=== PATIENT | female | born 1985 | race Caucasian/White ===

== ENCOUNTER 2019-03-09 18:27 | Inpatient (IN) ==
[2019-03-09] MEDS ORDERED: Naloxone 0.4 MG/ML INJ IVP PRN (21:04)
[2019-03-09] MEDS ORDERED: Artificial Tears SOLN 15 ML BOTTLE BOTH EYES PRN (21:07)
[2019-03-09] MEDS ORDERED: FentaNYL (PF) 1,000 MCG in 0.9 % Sodium Chloride 80 ML IVC SCH (21:15)
--- NOTE | 2019-03-09 21:23 | Internal Med History&Physical ---
<Genna Rubio - Last Filed: 03/09/19 22:06> Date of Encounter: 03/09/19 Time of Encounter: 21:00 Internal Medicine - H&P: HPI Chief complaint: shortness of breath History of present illness: Ms. Olmedo is a 33 year old female with no known past medical history who was transferred from [facility]. She was presented via EMS to outside facility as she was breathing 3 times per minute. At presentation she was awake but agitated and complaining of severe shortness of breath. She received 2 mg of nasal Narcan at [place] [facility]. Her respiratory status became labored and had severe dyspnea subsequently requiring intubation. Her urine drug screen was pos itive for amphetamine and opioids. Her initial ABG showed respiratory acidosis with PCO2 of 108 and pH of 6.97. She was also noted to have WBC of 17.6 with elevated platelets of 572. At outside ED she had bilateral external jugular lines placed. No further history as she is currently intubated. Past Med Surg Social Fam HX - Past Medical History Medical history: COPD Additional medical history: PNEUMONIA, IV DRUG USE , WEARS HOME O2 AT 2LPM VIA NC PRN Psychiatric history: anxiety, depression - Past Surgical History Surgical History: no surgical history - Social History Smoking Status: Current every day smoker Smokeless Tobacco Status: No Alcohol use: none Drug use: cocaine, opiates, IV Drug Use, prescription drug abuse Internal Medicine - H&P: Meds Albuterol Neb [Proventil Neb] 2.5 mg IH Q4HR PRN #30 vial.neb 02/14/19 [Rx] Albuterol Sulfate [Albuterol Inhaler] 2 puff IH Q4H PRN #1 inhaler 02/14/19 [Rx] PredniSONE [Deltasone] 60 mg PO DAILY #15 tablet 02/14/19 [Rx] Allergy/AdvReac Type Severity Reaction Status Date / Time No Known Allergies Allergy Verified 02/14/19 23:16 ROS unobtainable: due to endotracheal tube All Systems PM: A 10-system review of systems was performed and is negative for pertinent findings except as documented above in the HPI. - Constitutional Exam: Gen: Vitals noted. Intubated. In no acute distress Eyes: anicteric sclerae, moist conjunctivae; no lid-lag HENT: Atraumatic; oropharynx clear with moist mucous membranes and no mucosal ulcerations; normal hard and soft palate Neck: Trachea midline; supple, no thyromegaly or lymphadenopathy, bilateral external jugular lines on bilateral neck Cardiac: RRR, no murmur, +S1/S2. No JVD noted. Pulmonary: Diffuse wheezing all lung lobes, no rales or rhonchi, equal chest expansion Abdomen: soft, nontender, no guarding. No masses or hepatosplenomegaly Extremities: Left leg appears edematous, nontender calf Skin: Normal temperature, turgor; no rash, ulcers or subcutaneous nodules Neuro: Intubated and not moving any extremities, no focal deficits. Psych: Intubated, does not respond to command. - Assessment and Plan (1) Acute respiratory failure with hypoxia and hypercapnia Current Visit: Yes Status: Acute Assessment and plan: Was presented to outside ED to have decreased respiratory rate secondary to drug overdose. At presentation to outside ED pH was 6.96 with PCO2 of 108. He was subsequently intubated her repeat ABG shows pH of 7.25 with PCO2 71 Has diffuse wheezing in all lung lobes -Continue scheduled DuoNeb -Continue scheduled IV Solu-Medrol -Continue antibiotic treatment for aspiration pneumonia -Continue to titrate supplemental oxygen with ventilation setting -Repeat chest x-ray pending -Repeat ABG in two hours and in the morning (2) Drug overdose, multiple drugs Current Visit: No Status: Acute Assessment and plan: Presented to the ED at [facility] pain or shortness of breath which was likely secondary to acute blood overdose. Urine toxicology was positive for amphetamines and opioids. Does have history of IV heroin use. Received 2 mg of Narcan outside facility Due to her worsening respiratory status currently is intubated Limit use of opioids Continue sedation with propofol Qualifiers: Encounter type: initial encounter Injury intent: accidental or unintentional Qualified Code(s): T50.901A - Poisoning by unspecified drugs, medicaments and biological substances, accidental (unintentional), initial en counter (3) Aspiration pneumonia Current Visit: Yes Status: Suspected Assessment and plan: Concern for aspiration pneumonia. Was presented to outside ED with respiratory rate of 3 unknown if she had vomited at home. Has diffuse wheezing in all lung lobes with mucus secretions. -We will start Zosyn for aspiration pneumonia if respiratory status improves consider stopping Zosyn -Continue breathing treatments -Appears dehydrated, will start normal saline at rate of 125ml per hour Qualifiers: Aspiration pneumonia type: unspecified Laterality: unspecified laterality Lung location: unspecified part of lung Qualified Code(s): J69.0 - Pneumonitis due to inhalation of food and vomit (4) Leg edema, left Current Visit: Yes Status: Acute Assessment and plan: History of IV drug use left leg appears edematous concern for superficial versus deep venous thrombosis Bilateral lower extremity Dopplers pending (5) DVT prophylaxis Current Visit: Yes Status: Acute Assessment and plan: Subcutaneous heparin - Time Spent With Patient Total time spent is greater than 50% in coordination of care (as documented) at patient's floor/unit and/or counseling patient: <Lopez Guadarrama - Last Filed: 03/10/19 03:04> Date of Encounter: 03/09/19 Time of Encounter: 21:45 Past Med Surg Social Fam HX - Past Medical History Source: old records reviewed, other ([facility] records) - Family History Mother History Unknown: Yes Father History Unknown: Yes ROS unobtainable: due to endotracheal tube - Constitutional Vitals: Temp Pulse Resp BP Pulse Ox 98.5 F 95 26 104/71 100 03/09/19 23:51 03/10/19 02:00 03/10/19 02:00 03/10/19 02:00 03/10/19 02:00 General appearance: Present: cachectic, disheveled, underweight Exam: sedated, intubated - Head Head exam: Present: atraumatic, normal inspection - Eye Eye exam: Present: PERRL. Absent: scleral icterus - ENT ENT exam: Present: mucous membranes dry, normal exam Additional comments: ETT/OG tube in place - Neck Neck exam general surgery: Present: full ROM, supple, trachea midline. Absent: tenderness, nuchal rigidity, thyromegaly - Respiratory Respiratory exam: Present: prolonged expiratory phase, rhonchi, wheezes. Absent: chest wall tenderness, rales - Cardiovascular Cardiovascular exam: Present: RRR, +S1, +S2, tachycardia. Absent: diastolic murmur, systolic murmur - GI/Abdominal GI/Abdominal exam: Present: normal bowel sounds, soft. Absent: hepatomegaly, mass, splenomegaly, tenderness - Extremities Exam Extremities exam: Present: normal capillary refill, warm, radial pulses palpable and symmetrical. Absent: calf tenderness, joint swelling Additional comments: cellulitis changes and slight swelling in left leg - Neurological Exam Additional comments: responds to suctioning, painful stimulation - Skin Skin exam: Present: dry, erythema (left pretibial area), intact, warm Additional comments: scabs and injection sites throughout extremities Internal Med - H&P Results - Labs Labs: I reviewed her labs from [place] and include the following: WBC 17.6 Hemoglobin 11.2 Hematocrit 36.8 Platelets 572 Sodium 139 Potassium 5.3 Chloride 103 Carbon dioxide 27 BUN 10 Creatinine 1.14 Glucose 166 Urine drug screen positive for opiates and amphetamines - ABG Interpretation Interpretation: ABG interpreted by me ABG results: 03/09/19 03/10/19 21:31 00:54 ABG pH 7.25 L D 7.32 ABG pCO2 71 H* 55 H ABG pO2 131 H D 156 H ABG HCO3 31 H 28 H ABG Total CO2 33 H 30 H ABG O2 Saturation 98 99 H ABG Base Excess 2 2 Interpretation: respiratory acidosis - Impressions ITS Impressions Chest X-Ray 03/09/19 21:39 IMPRESSION: Interval placement of enteric tube with tip in the proximal stomach, side hole above the gastroesophageal junction. Ideally, the tube could be advanced by several cm. D/ / Summer Govea Cha, MD / Summer Govea Cha, MD Interpreting Provider: Summer Govea Cha, MD - Diagnostic Studies Chest x-ray Status: image reviewed by me (ETT in place; hyperinflaiton) - Time Spent With Patient Total time spent is greater than 50% in coordination of care (as documented) at patient's floor/unit and/or counseling patient: - Attending Attestation I discussed the patient NATIVE, past medical history, exam findings, lab findings, and imaging findings with Dr. Rubio. I then saw and examined patient independently in ICU. Patient is sedated and mechanically ventilated. She does respond appropriately to painful and loud verbal stimuli. She is wheezing audibly on exam. She has a prolonged expiratory phase. She has multiple scabs throughout her body likely from picking and injection sites. We will keep her sedated and mechanically ventilated tonight. We will treat her with steroids, aerosols, and antibiotics for possible pneumonia and asthma exacerbation. She also has cellulitis of her left lower extremity, and this will need to be followed. I made some ventilator adjustments with respiratory therapy to improve her acid base status. I reviewed her x-rays and discussed with Dr. Rubio and her nurse as well. My hope and expectation is that she will improve, and hopefully we can extubate in the morning with pulmonology services available. Other than my comments above and documented exam findings, I agree with Dr. Rubio's assessment and plan. Please note that a total of 45 minutes critical care time were spent assessing, coordinating care of patient, reviewing labs, and x-rays, and making ventilatory changes with respiratory therapy.
[2019-03-09 21:40] LABS: ABG Base Excess 2 mEq/L (-2 to 3); ABG HCO3 31 mEq/L (21-27); ABG Oxygen Saturation 98 % (95-98); ABG PCO2 71 mmHg (35-45); ABG PH 7.25 pH Units (7.32-7.45); ABG PO2 131 mmHg (85-104); ABG TCO2 33 mEq/L (20-26); Blood Gas Modality VC; Blood Gas PEEP 5 cm H2O; Blood Gas Respiration Rate 12; Blood Gas VT 400 cc
[2019-03-09] MEDS ORDERED: 0.9 % Sodium Chloride 1,000 ML ONE (21:51)
[2019-03-09] MEDS: 0.9 % Sodium Chloride 1,000 ML IVC SCH (22:00)
[2019-03-09] MEDS: Ipratropium/Albuterol Neb 3 ML IH SCH (22:23)
[2019-03-09] MEDS ORDERED: Dexmedetomidine HCl 400 MCG/100 ML MLS IVC ONE (23:08)
[2019-03-09] MEDS: Piperacillin/Tazobactam 3.375 GM in 0.9 % Sodium Chloride Mini Bag 100 ML IVPB SCH (23:16)
[2019-03-09] MEDS: MethylPREDNISolone 40 MG/ML VIAL IVP SCH (23:17)
[2019-03-09] MEDS: Dexmedetomidine HCl 400 MCG/100 ML MLS IVC SCH (23:18)
[2019-03-10 00:57] LABS: ABG Base Excess 2 mEq/L (-2 to 3); ABG HCO3 28 mEq/L (21-27); ABG Oxygen Saturation 99 % (95-98); ABG PCO2 55 mmHg (35-45); ABG PH 7.32 pH Units (7.32-7.45); ABG PO2 156 mmHg (85-104); ABG TCO2 30 mEq/L (20-26); Blood Gas Modality VC; Blood Gas PEEP 5 cm H2O; Blood Gas Respiration Rate 16; Blood Gas VT 400 cc
[2019-03-10] MEDS: Artificial Tears SOLN 15 ML BOTTLE BOTH EYES SCH ×3 (02:10→10:46)
[2019-03-10] MEDS: Ipratropium/Albuterol Neb 3 ML IH SCH ×4 (03:35→21:44)
[2019-03-10 04:27] LABS: Basophils % 0.3 %; Eosinophils % 0.2 %; Hemoglobin 9.1 g/dL (11.5-15.4); Immature Granulocytes % 0.4 % (0-4); Lymphocytes % 7.6 %; Mean Corpuscular HGB Conc 30.3 g/dL (31.6-35.5); Mean Corpuscular Hemoglobin 26.2 pg (28.0-33.3); Mean Corpuscular Volume 86.5 fL (83.0-100.0); Mean Platelet Volume 9.4 fL (9.4-12.4); Monocytes # 0.2 K/mcL (0.0-1.3); Monocytes % 1.4 %; Neutrophils # 11.3 K/mcL (1.6-8.9); Platelet Count 294 K/mcL (140-400); Red Blood Count 3.47 M/mcL (3.82-4.97); Red Cell Distribution Width 13.7 % (11.5-14.5); Segmented Neutrophils % 90.1 %
[2019-03-10 04:38] LABS: ABG Base Excess 2 mEq/L (-2 to 3); ABG HCO3 28 mEq/L (21-27); ABG Oxygen Saturation 97 % (95-98); ABG PCO2 50 mmHg (35-45); ABG PH 7.35 pH Units (7.32-7.45); ABG PO2 98 mmHg (85-104); ABG TCO2 29 mEq/L (20-26); Blood Gas Modality ASSIST CONTROL; Blood Gas PEEP 5 cm H2O; Blood Gas Respiration Rate 16; Blood Gas VT 350 cc
[2019-03-10 04:47] LABS: BUN/Creatinine Ratio 13 (6-26); Blood Urea Nitrogen 10 mg/dL (6-20); Calcium 7.8 mg/dL (8.6-10.3); Carbon Dioxide 27 mEq/L (23-29); Chloride 104 mEq/L (98-107); Glucose 133 mg/dL (70-105); Osmolality,Calculated 291 (280-300); Potassium 4.1 mEq/L (3.5-5.1); Sodium 140 mEq/L (136-145); eGFR For Non-African Americans > 60 (> 60)
[2019-03-10] MEDS ORDERED: *HR* FentaNYL (PF) 100 MCG/2 ML VIAL IVP ONE (05:38)
[2019-03-10] MEDS ORDERED: *HR* FentaNYL (PF) 100 MCG/2 ML VIAL ONE (05:39)
[2019-03-10] MEDS: *HR* Heparin 5,000 UNIT/ML VIAL SQ SCH ×2 (05:45→18:37)
[2019-03-10] MEDS: 0.9 % Sodium Chloride 1,000 ML IVC SCH (05:46)
[2019-03-10] MEDS: Dexmedetomidine HCl 400 MCG/100 ML MLS IVC SCH ×2 (05:48→15:28)
[2019-03-10 07:42] LABS: Creatine Kinase 1529 Units/L (30-223)
--- NOTE | 2019-03-10 08:57 | Pulmonology Consult Note ---
<Kirill Jacinto - Last Filed: 03/10/19 13:25> Date of Encounter: 03/10/19 Time of Encounter: 08:00 Assessment and Plan (1) Acute respiratory failure with hypoxia and hypercapnia Current Visit: Yes Status: Acute -Likely 2/2 drug overdose -Tox pos for opiates and amphetamines -ABG at [place] with pH 6.96, paCO2 108, paO2 78 -WBC 17.6 at [place] -WBC 12.6 today -BC x2 pending -ABG 03/10/19: pH 7.35, paCO2 50, paO2 98, HCO3 28, 97% on 40% FiO2 -Started on zosyn on arrival for concern of aspiration 2/2 report of vomiting by EMS -Will add additional vancomycin today for MRSA coverage as IVDU -Continue scheduled bronchodilators, nebs, and steroids -Will wean sedation and mechanical ventilation as tolerated (2) Rhabdomyolysis Current Visit: Yes Status: Acute -CK 1529 -Uop 1900ml so far today -Cr 0.78, BUN 10 -Will continue IVF with LR and monitor CK for trend down Qualifiers: Rhabdomyolysis type: non-traumatic Qualified Code(s): M62.82 - Rhabdomyolysis (3) Drug overdose, multiple drugs Current Visit: No Status: Acute -Tox pos opiates and amphetamines Qualifiers: Encounter type: initial encounter Injury intent: accidental or unintentional Qualified Code(s): T50.901A - Poisoning by unspecified drugs, medicaments and biological substances, accidental (unintentional), initial encounter (4) DVT prophylaxis Current Visit: Yes Status: Acute -Sq heparin History of Present Illness Consult date: 03/10/19 Requesting physician: Genna Rubio Reason for consult: other (Acute resp failure ) Chief complaint: Acute resp failure History of present illness: 33 year old female with pmh significant for IVDU. Hx comes from medical record as she is intubated and sedated. She was brought to [place] ED via EMS after being found to have RR 3. She was awake, agitated and dyspneic. Received narcan which had no improvement in resp status and was subsequently intubated. She was transferred to [facility] and brought to the ICU for continued vent management. Past Med Surg Social Fam HX - Past Medical History Medical history: COPD Additional medical history: PNEUMONIA, IV DRUG USE , WEARS HOME O2 AT 2LPM VIA NC PRN Psychiatric history: anxiety, depression - Past Surgical History Surgical History: no surgical history - Social History Smoking Status: Current every day smoker Smokeless Tobacco Status: No Alcohol use: none Drug use: cocaine, opiates, IV Drug Use, prescription drug abuse - Family History Mother History Unknown: Yes Father History Unknown: Yes Medications and Allergies Albuterol Neb [Proventil Neb] 2.5 mg IH Q4HR PRN #30 vial.neb 02/14/19 [Rx] Albuterol Sulfate [Albuterol Inhaler] 2 puff IH Q4H PRN #1 inhaler 02/14/19 [Rx] PredniSONE [Deltasone] 60 mg PO DAILY #15 tablet 02/14/19 [Rx] Allergy/AdvReac Type Severity Reaction Status Date / Time No Known Allergies Allergy Verified 02/14/19 23:16 ROS unobtainable: due to endotracheal tube, due to mental status All Systems: The remainder of the systems were reviewed and are negative Physical Examination Vital Signs: Vital Signs, Last 4 Hours Pulse Resp BP Pulse Ox 03/10/19 07:32 32 100 03/10/19 07:00 98 28 86/57 100 03/10/19 06:38 28 86/57 100 03/10/19 06:00 100 30 93/60 100 03/10/19 05:00 98 30 96/66 100 General appearance: no acute distress, other (intubated and sedated ) Eyes: nonicteric ENT: oropharynx dry Inspection: other (on vent ) Auscultation: bilateral: diminished breath sounds, wheezes (scattered) Cardiovascular: regular rate and rhythm Gastrointestinal: normoactive bowel sounds, soft, non-tender Integumentary: other (various injection sites in various stages of healing. L lower leg lesion with erythema and central scab ) Extremities: no edema, no clubbing, pink and warm, pulses normal, no ischemia or petechiae other (sedated) other (sedated) Ventilator Settings Ventilator Settings: Ventilator Settings, Last 8 Hours Ventilator Tidal Volume 350 Setting Ventilator Tidal Volume 350 Setting Ventilator Tidal Volume 350 Setting Ventilator Tidal Volume 350 Setting Ventilator Tidal Volume 350 Setting Ventilator Tidal Volume 350 Setting Ventilator Tidal Volume 350 Setting Ventilator Tidal Volume 350 Setting Ventilator Respiratory Rate 16 Setting Ventilator Respiratory Rate 16 Setting Ventilator Respiratory Rate 16 Setting Ventilator Respiratory Rate 16 Setting Ventilator Respiratory Rate 16 Setting Ventilator Respiratory Rate 16 Setting Ventilator Respiratory Rate 16 Setting Actual Respiratory Rate 32 Actual Respiratory Rate 29 Actual Respiratory Rate 26 Actual Respiratory Rate 22 Positive End Expiratory 5 Pressure Positive End Expiratory 5 Pressure Positive End Expiratory 5 Pressure Positive End Expiratory 5 Pressure Positive End Expiratory 5 Pressure Positive End Expiratory 5 Pressure Positive End Expiratory 5 Pressure Peak Inspiratory Airway 19 Pressure Peak Inspiratory Airway 18 Pressure Peak Inspiratory Airway 16 Pressure Peak Inspiratory Airway 23 Pressure Peak Inspiratory Airway 17 Pressure Peak Inspiratory Airway 19 Pressure Peak Inspiratory Airway 11 Pressure Results - Laboratory Findings CBC and BMP: 03/10/19 10:15 03/10/19 04:00 ABG ABG pH 7.35 pH Units (7.32-7.45) 03/10/19 04:35 ABG pCO2 50 mmHg (35-45) H 03/10/19 04:35 ABG pO2 98 mmHg (85-104) D 03/10/19 04:35 ABG O2 Saturation 97 % (95-98) 03/10/19 04:35 Abnormal lab findings: Abnormal lab results WBC 12.6 K/mcL (4.3-11.1) H 03/10/19 04:00 RBC 3.47 M/mcL (3.82-4.97) L 03/10/19 04:00 Hgb 9.1 g/dL (11.5-15.4) L D 03/10/19 04:00 Hct 30.0 % (35.3-44.9) L 03/10/19 04:00 MCH 26.2 pg (28.0-33.3) L 03/10/19 04:00 MCHC 30.3 g/dL (31.6-35.5) L 03/10/19 04:00 11.3 K/mcL (1.6-8.9) H 03/10/19 04:00 ABG pH 7.25 pH Units (7.32-7.45) L D 03/09/19 21:31 ABG pCO2 50 mmHg (35-45) H 03/10/19 04:35 ABG pO2 156 mmHg (85-104) H 03/10/19 00:54 ABG HCO3 28 mEq/L (21-27) H 03/10/19 04:35 ABG Total CO2 29 mEq/L (20-26) H 03/10/19 04:35 ABG O2 Saturation 99 % (95-98) H 03/10/19 00:54 Glucose 133 mg/dL (70-105) H 03/10/19 04:00 POC Glucose 136 mg/dL (70-99) H 03/09/19 21:05 Calcium 7.8 mg/dL (8.6-10.3) L 03/10/19 04:00 1529 Units/L (30-223) H 03/10/19 04:00 - Microbiology Findings Microbiology Findings: Microbiology, Last 48 Hours 03/10/19 07:03 Blood Culture - Preliminary Peripheral Venipuncture Culture is incubating and being continuously monitored for growth. Final report to follow. 03/09/19 21:37 Blood Culture - Preliminary Peripheral Venipuncture Culture is incubating and being continuously monitored for growth. Final report to follow. - Clinical Findings Intake & Output: Intake & Output 03/09/19 03/10/19 03/10/19 23:59 07:59 15:59 Intake Total 1300 / 1300 Output Total 700 / 700 750 / 750 Balance -700 / -700 550 / 550 Weight 51.8 kg Consult Discharge Plan - Plan Referrals: NONE,PCP [Primary Care Provider] - <Sandip Zamorano W - Last Filed: 03/10/19 13:46> Date of Encounter: 03/10/19 All Systems: The remainder of the systems were reviewed and are negative Physical Examination Vital Signs: Vital Signs, Last 4 Hours Temp Pulse Resp BP Pulse Ox 03/10/19 13:07 16 107/67 98 03/10/19 13:00 110 21 107/67 98 03/10/19 12:00 97.9 F 78 23 107/67 100 03/10/19 11:41 97.2 F L 21 100 03/10/19 11:00 84 21 105/66 100 03/10/19 10:00 88 24 98/60 100 03/10/19 09:58 20 100 Ventilator Settings Ventilator Settings: Ventilator Settings, Last 8 Hours Ventilator Tidal Volume 400 Setting Ventilator Tidal Volume 400 Setting Ventilator Tidal Volume 400 Setting Ventilator Tidal Volume 400 Setting Ventilator Tidal Volume 400 Setting Ventilator Tidal Volume 400 Setting Ventilator Tidal Volume 400 Setting Ventilator Tidal Volume 350 Setting Ventilator Tidal Volume 350 Setting Ventilator Tidal Volume 350 Setting Ventilator Respiratory Rate 16 Setting Ventilator Respiratory Rate 16 Setting Ventilator Respiratory Rate 16 Setting Ventilator Respiratory Rate 16 Setting Ventilator Respiratory Rate 16 Setting Ventilator Respiratory Rate 16 Setting Ventilator Respiratory Rate 16 Setting Ventilator Respiratory Rate 16 Setting Ventilator Respiratory Rate 16 Setting Ventilator Respiratory Rate 16 Setting Actual Respiratory Rate 22 Actual Respiratory Rate 21 Actual Respiratory Rate 21 Actual Respiratory Rate 21 Actual Respiratory Rate 20 Actual Respiratory Rate 23 Actual Respiratory Rate 27 Actual Respiratory Rate 32 Actual Respiratory Rate 29 Positive End Expiratory 5 Pressure Positive End Expiratory 5 Pressure Positive End Expiratory 5 Pressure Positive End Expiratory 5 Pressure Positive End Expiratory 5 Pressure Positive End Expiratory 5 Pressure Positive End Expiratory 5 Pressure Positive End Expiratory 5 Pressure Positive End Expiratory 5 Pressure Positive End Expiratory 5 Pressure Peak Inspiratory Airway 27 Pressure Peak Inspiratory Airway 30 Pressure Peak Inspiratory Airway 26 Pressure Peak Inspiratory Airway 29 Pressure Peak Inspiratory Airway 28 Pressure Peak Inspiratory Airway 31 Pressure Peak Inspiratory Airway 27 Pressure Peak Inspiratory Airway 19 Pressure Peak Inspiratory Airway 18 Pressure Peak Inspiratory Airway 16 Pressure Results - Laboratory Findings CBC and BMP: 03/10/19 10:15 03/10/19 04:00 ABG ABG pH 7.35 pH Units (7.32-7.45) 03/10/19 04:35 ABG pCO2 50 mmHg (35-45) H 03/10/19 04:35 ABG pO2 98 mmHg (85-104) D 03/10/19 04:35 ABG O2 Saturation 97 % (95-98) 03/10/19 04:35 Abnormal lab findings: Abnormal lab results WBC 12.6 K/mcL (4.3-11.1) H 03/10/19 04:00 RBC 3.25 M/mcL (3.82-4.97) L 03/10/19 10:15 Hgb 8.7 g/dL (11.5-15.4) L 03/10/19 10:15 Hct 27.9 % (35.3-44.9) L 03/10/19 10:15 MCH 26.8 pg (28.0-33.3) L 03/10/19 10:15 MCHC 31.2 g/dL (31.6-35.5) L 03/10/19 10:15 11.3 K/mcL (1.6-8.9) H 03/10/19 04:00 ABG pH 7.25 pH Units (7.32-7.45) L D 03/09/19 21:31 ABG pCO2 50 mmHg (35-45) H 03/10/19 04:35 ABG pO2 156 mmHg (85-104) H 03/10/19 00:54 ABG HCO3 28 mEq/L (21-27) H 03/10/19 04:35 ABG Total CO2 29 mEq/L (20-26) H 03/10/19 04:35 ABG O2 Saturation 99 % (95-98) H 03/10/19 00:54 Glucose 133 mg/dL (70-105) H 03/10/19 04:00 POC Glucose 136 mg/dL (70-99) H 03/09/19 21:05 Calcium 7.8 mg/dL (8.6-10.3) L 03/10/19 04:00 1529 Units/L (30-223) H 03/10/19 04:00 - Microbiology Findings Microbiology Findings: Microbiology, Last 48 Hours 03/10/19 07:03 Blood Culture - Preliminary Peripheral Venipuncture Culture is incubating and being continuously monitored for growth. Final report to follow. 03/09/19 21:37 Blood Culture - Preliminary Peripheral Venipuncture Culture is incubating and being continuously monitored for growth. Final report to follow. - Clinical Findings Intake & Output: Intake & Output 03/09/19 03/10/19 03/10/19 23:59 07:59 15:59 Intake Total 1300 / 2550 1250 / 2550 Output Total 700 / 700 750 / 2350 1600 / 2350 Balance -700 / -700 550 / 200 -350 / 200 Weight 51.8 kg - Attending Attestation I examined this patient and my medical decision-making was reviewed with the Resident Physician. I agree with the documented findings, disposition and treatment plan as described except to the extent set forth below. We independently had [id number] contact with the patient I spent 32min of Critical Care time with this patient. It involved decision making of high complexity to assess, manipulate, and support vital organ system failure and/or to prevent further life threatening deterioration of the patient's condition. The time involved in the performance of separately reportable procedures was not counted toward critical care time. Patient seen and examined at bedside Labs, radiology, chart personally reviewed. Management was reviewed during multidisciplinary critical care rounds. 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: Acute encephalopathy likely secondary to drug intoxication head CT within normal limits Pulm: Acute hypoxic hypercapnic respiratory failure secondary to aspiration and overdose she is on the vent plan to decrease sedation as tolerated and to hopefully do spontaneous breathing trial Cards: Blood pressure monitored and stable borderline hypotension which is likely related to sedation she has received volume resuscitation for sepsis and overdose GI: GI prophylaxis while on vent Nutrition: Nothing by mouth for now Renal: No evidence of AK I but she does have evidence of mild rhabdomyolysis which we will continue to monitor and continue IV fluids UOP Monitored, Cont to Trend sCr and monitor Electrolytes. ID: For aspiration she is also at risk for MRSA infections can likely de- escalate in the next 24-48 hours based upon cultures and course Heme/Onc: DVT prophylaxis given Endo: Glucose Monitored Integ/MSK: Skin Care per routine ICU Nursing Protocol to prevent ulcers. Lines: All lines examined without evidence of infection : Dispo: Monitor in ICU for critical illness CODE: Code patient will need social service consult
[2019-03-10] MEDS ORDERED: Chlorhexidine Rinse 15 ML MOUTHWASH MM SCH (09:00)
[2019-03-10] MEDS: Pantoprazole 40 MG in 0.9 % Sodium Chloride Mini Bag 100 ML IVC SCH ×3 (09:53→19:17)
[2019-03-10] MEDS: MethylPREDNISolone 40 MG/ML VIAL IVP SCH ×2 (09:53→18:36)
[2019-03-10] MEDS: Piperacillin/Tazobactam 3.375 GM in 0.9 % Sodium Chloride Mini Bag 100 ML IVPB SCH ×2 (09:54→16:52)
[2019-03-10] MEDS ORDERED: 0.9 % Sodium Chloride 1,000 ML IVC SCH (10:45)
[2019-03-10 10:46] LABS: Basophils % 0.4 %; Hematocrit 27.9 % (35.3-44.9); Hemoglobin 8.7 g/dL (11.5-15.4); Immature Granulocytes % 0.4 % (0-4); Lymphocytes # 1.5 K/mcL (0.6-4.6); Lymphocytes % 14.2 %; Mean Corpuscular HGB Conc 31.2 g/dL (31.6-35.5); Mean Corpuscular Hemoglobin 26.8 pg (28.0-33.3); Mean Corpuscular Volume 85.8 fL (83.0-100.0); Mean Platelet Volume 9.6 fL (9.4-12.4); Monocytes # 0.2 K/mcL (0.0-1.3); Monocytes % 2.4 %; Neutrophils # 8.4 K/mcL (1.6-8.9); Platelet Count 286 K/mcL (140-400); Red Blood Count 3.25 M/mcL (3.82-4.97); Red Cell Distribution Width 13.6 % (11.5-14.5); Segmented Neutrophils % 82.6 %
[2019-03-10] MEDS: Ringers Solution, Lactated 1,000 ML IVC SCH ×2 (11:39→20:21)
[2019-03-10 14:39] LABS: Albumin 3.1 g/dL (3.5-5.7); Albumin/Globulin Ratio 1.1 (1.1-2.2); Bilirubin,Direct 0.1 mg/dL (0.0-0.2); Bilirubin,Indirect 0.2 mg/dL (0.0-1.2); Bilirubin,Total 0.3 mg/dL (0.3-1.0); Globulin 2.9 g/dL (2.4-3.5)
[2019-03-11] MEDS: Piperacillin/Tazobactam 3.375 GM in 0.9 % Sodium Chloride Mini Bag 100 ML IVPB SCH ×3 (00:21→15:31)
[2019-03-11] MEDS: Pantoprazole 40 MG in 0.9 % Sodium Chloride Mini Bag 100 ML IVC SCH ×6 (00:22→20:30)
[2019-03-11] MEDS: Ipratropium/Albuterol Neb 3 ML IH SCH ×4 (04:32→22:13)
[2019-03-11 04:47] LABS: Basophils % 0.2 %; Hematocrit 26.5 % (35.3-44.9); Hemoglobin 8.5 g/dL (11.5-15.4); Immature Granulocytes % 0.4 % (0-4); Lymphocytes # 1.5 K/mcL (0.6-4.6); Lymphocytes % 15.8 %; Mean Corpuscular HGB Conc 32.1 g/dL (31.6-35.5); Mean Corpuscular Hemoglobin 27.1 pg (28.0-33.3); Mean Corpuscular Volume 84.4 fL (83.0-100.0); Mean Platelet Volume 9.1 fL (9.4-12.4); Monocytes # 0.5 K/mcL (0.0-1.3); Monocytes % 5.5 %; Neutrophils # 7.3 K/mcL (1.6-8.9); Platelet Count 301 K/mcL (140-400); Red Blood Count 3.14 M/mcL (3.82-4.97); Red Cell Distribution Width 13.8 % (11.5-14.5); Segmented Neutrophils % 78.1 %
[2019-03-11 05:05] LABS: BUN/Creatinine Ratio 14 (6-26); Blood Urea Nitrogen 9 mg/dL (6-20); Calcium 8.2 mg/dL (8.6-10.3); Carbon Dioxide 29 mEq/L (23-29); Chloride 109 mEq/L (98-107); Glucose 115 mg/dL (70-105); Magnesium 1.9 mg/dL (1.6-2.6); Osmolality,Calculated 292 (280-300); Phosphorous 2.7 mg/dL (2.7-4.5); Potassium 3.8 mEq/L (3.5-5.1); Sodium 141 mEq/L (136-145); eGFR For Non-African Americans > 60 (> 60)
[2019-03-11] MEDS: MethylPREDNISolone 40 MG/ML VIAL IVP SCH ×2 (05:27→16:34)
[2019-03-11] MEDS: *HR* Heparin 5,000 UNIT/ML VIAL SQ SCH (05:27)
[2019-03-11] MEDS: Dexmedetomidine HCl 400 MCG/100 ML MLS IVC SCH ×2 (05:32→16:40)
--- NOTE | 2019-03-11 06:35 | Pulmonology Progress Note ---
Date of Encounter: 03/11/19 Time of Encounter: 06:35 Assessment and Plan (1) Acute respiratory failure with hypoxia and hypercapnia Current Visit: Yes Status: Acute Improving respiratory status she is apparently oxygen dependent at home from underlying COPD and she has been weaned down to nasal cannula she has noted desaturation with any time she gets out of bed however. We will continue supplemental oxygen to keep saturation greater than 88% and will need walking pulse oximetry prior to discharge (2) Aspiration pneumonia Current Visit: Yes Status: Suspected Patient presented with features of aspiration pneumonia she is on appropriate antimicrobial coverage and likely can be transitioned to by mouth medication over the next 24 hours we have Deescalated from vancomycin as her MRSA swab was negative Qualifiers: Aspiration pneumonia type: unspecified Laterality: unspecified laterality Lung location: unspecified part of lung Qualified Code(s): J69.0 - Pneumonitis due to inhalation of food and vomit (3) Drug overdose, multiple drugs Current Visit: No Status: Acute Neurologically much improved Qualifiers: Encounter type: initial encounter Injury intent: accidental or unintentional Qualified Code(s): T50.901A - Poisoning by unspecified drugs, medicaments and biological substances, accidental (unintentional), initial encounter (4) Opiate withdrawal Current Visit: Yes Status: Acute She is demonstrating evidence of opiate withdrawal provide supportive care continue Precedex cannot clonidine and antiemetic may consider methadone (5) COPD exacerbation Current Visit: Yes Status: Acute Continue IV steroids for now and schedule bronchodilators (6) Rhabdomyolysis Current Visit: Yes Status: Acute This is resolving continue IV fluid Qualifiers: Rhabdomyolysis type: non-traumatic Qualified Code(s): M62.82 - Rhabdomyolysis (7) Tobacco abuse Current Visit: Yes Status: Acute Tobacco cessation counseling given Subjective Principal diagnosis: Respiratory Failure Interval history: Patient was successfully liberated from the vent and is doing well from a neurological standpoint as well as respiratory standpoint compared to admission to the hospital however she is complaining of serious opiate withdrawal including heart racing feeling agitated and nauseous Objective PUL Vital signs: Last Vital Signs Temp 98.5 F 03/11/19 03:20 Pulse 107 03/11/19 06:00 Resp 26 03/11/19 06:00 BP 117/85 03/11/19 06:00 Pulse Ox 99 03/11/19 06:00 General appearance: appears uncomfortable Eyes: nonicteric ENT: oropharynx dry Neck: supple Auscultation: bilateral: wheezes Cardiovascular: other (Rapid rate regular rhythm) Gastrointestinal: soft, non-tender Integumentary: other (Patient has evidence of track gilmore and skin breakdown from likely injection site and picking at skin) Extremities: no edema Musculoskeletal: no deformities non-focal exam, pupils equal and round anxious Results - Laboratory Findings CBC and BMP: 03/11/19 04:00 03/11/19 04:00 ABG ABG pH 7.35 pH Units (7.32-7.45) 03/10/19 04:35 ABG pCO2 50 mmHg (35-45) H 03/10/19 04:35 ABG pO2 98 mmHg (85-104) D 03/10/19 04:35 ABG O2 Saturation 97 % (95-98) 03/10/19 04:35 Abnormal lab findings: Abnormal lab results WBC 12.6 K/mcL (4.3-11.1) H 03/10/19 04:00 RBC 3.14 M/mcL (3.82-4.97) L 03/11/19 04:00 Hgb 8.5 g/dL (11.5-15.4) L 03/11/19 04:00 Hct 26.5 % (35.3-44.9) L 03/11/19 04:00 MCH 27.1 pg (28.0-33.3) L 03/11/19 04:00 MCHC 31.2 g/dL (31.6-35.5) L 03/10/19 10:15 MPV 9.1 fL (9.4-12.4) L 03/11/19 04:00 11.3 K/mcL (1.6-8.9) H 03/10/19 04:00 ABG pH 7.25 pH Units (7.32-7.45) L D 03/09/19 21:31 ABG pCO2 50 mmHg (35-45) H 03/10/19 04:35 ABG pO2 156 mmHg (85-104) H 03/10/19 00:54 ABG HCO3 28 mEq/L (21-27) H 03/10/19 04:35 ABG Total CO2 29 mEq/L (20-26) H 03/10/19 04:35 ABG O2 Saturation 99 % (95-98) H 03/10/19 00:54 Chloride 109 mEq/L (98-107) H 03/11/19 04:00 Glucose 115 mg/dL (70-105) H 03/11/19 04:00 POC Glucose 117 mg/dL (70-99) H 03/10/19 11:09 Calcium 8.2 mg/dL (8.6-10.3) L 03/11/19 04:00 AST 77 Units/L (13-39) H 03/10/19 12:45 111 Units/L (34-104) H 03/10/19 12:45 791 Units/L (30-223) H 03/10/19 17:00 6.0 g/dL (6.4-8.9) L 03/10/19 12:45 3.1 g/dL (3.5-5.7) L 03/10/19 12:45 - Microbiology Findings Microbiology Findings: Microbiology, Last 48 Hours 03/10/19 07:03 Blood Culture - Preliminary Peripheral Venipuncture Culture is incubating and being continuously monitored for growth. Final report to follow. 03/09/19 21:37 Blood Culture - Preliminary Peripheral Venipuncture Culture is incubating and being continuously monitored for growth. Final report to follow. - Clinical Findings Intake & Output: Intake & Output 03/10/19 03/10/19 03/11/19 15:59 23:59 07:59 Intake Total 1550 / 4300 1450 / 4300 1400 / 1400 Output Total 1600 / 3425 1075 / 3425 550 / 550 Balance -50 / 875 375 / 875 850 / 850 Weight 50 kg Consult Discharge Plan - Plan Referrals: NONE,PCP [Primary Care Provider] -
[2019-03-11] MEDS ORDERED: Piperacillin/Tazobactam 3.375 GM VIAL ONE (07:48)
[2019-03-11] MEDS ORDERED: cloNIDine HCl 0.1 MG TABLET PO ONE (08:44)
[2019-03-11] MEDS: *HR* Midazolam HCl 2 MG/2 ML VIAL IVP PRN ×3 (12:55→19:32)
--- NOTE | 2019-03-11 19:38 | Event Note ---
Date of Encounter: 03/11/19 Time of Encounter: 19:31 I was informed that the patient had been requesting to leave AMA earlier in the day. I spoke with the patient at the bedside, and she reports experiencing significant withdrawal symptoms, including generalized pain. She states "I just want to go home". I did discuss with her risks and benefits of leaving the hospital AMA, particularly in light of her aspiration pneumonia and the fact that she does not have supplemental oxygen available at home. I informed her that orders had been placed for medications to help ease her withdrawal symptoms. She stated that she was willing to stay if she got "my Cheez-its and Snickers", and if she could be sedated. I explained to her that we could not sedate her for withdrawal symptoms, but we could use medications to make her symptoms tolerable. Patient stated that she was willing to stay as long as she got her snacks and medication for withdrawal. Nursing staff was present during this conversation, and is aware of the current management plan.
[2019-03-11] MEDS ORDERED: Naloxone 0.4 MG/ML INJ IVP PRN (21:56)
[2019-03-12] MEDS: Piperacillin/Tazobactam 3.375 GM in 0.9 % Sodium Chloride Mini Bag 100 ML IVPB SCH ×4 (00:56→23:48)
[2019-03-12] MEDS: *HR* Midazolam HCl 2 MG/2 ML VIAL IVP PRN ×4 (01:30→08:30)
[2019-03-12] MEDS: Pantoprazole 40 MG in 0.9 % Sodium Chloride Mini Bag 100 ML IVC SCH ×4 (01:36→11:37)
[2019-03-12] MEDS: Ipratropium/Albuterol Neb 3 ML IH SCH ×4 (03:54→21:09)
[2019-03-12 04:54] LABS: Basophils % 0.3 %; Eosinophils % 0.1 %; Hematocrit 28.6 % (35.3-44.9); Hemoglobin 8.9 g/dL (11.5-15.4); Immature Granulocytes % 0.4 % (0-4); Lymphocytes # 1.9 K/mcL (0.6-4.6); Lymphocytes % 24.1 %; Mean Corpuscular HGB Conc 31.1 g/dL (31.6-35.5); Mean Corpuscular Hemoglobin 26.4 pg (28.0-33.3); Mean Corpuscular Volume 84.9 fL (83.0-100.0); Mean Platelet Volume 9.7 fL (9.4-12.4); Monocytes # 0.5 K/mcL (0.0-1.3); Monocytes % 6.8 %; Neutrophils # 5.5 K/mcL (1.6-8.9); Platelet Count 319 K/mcL (140-400); Red Blood Count 3.37 M/mcL (3.82-4.97); Red Cell Distribution Width 13.7 % (11.5-14.5); Segmented Neutrophils % 68.3 %
[2019-03-12 05:10] LABS: BUN/Creatinine Ratio 14 (6-26); Blood Urea Nitrogen 10 mg/dL (6-20); Calcium 8.9 mg/dL (8.6-10.3); Carbon Dioxide 26 mEq/L (23-29); Chloride 105 mEq/L (98-107); Glucose 130 mg/dL (70-105); Magnesium 1.8 mg/dL (1.6-2.6); Osmolality,Calculated 291 (280-300); Phosphorous 3.5 mg/dL (2.7-4.5); Potassium 3.6 mEq/L (3.5-5.1); Sodium 140 mEq/L (136-145); eGFR For Non-African Americans > 60 (> 60)
[2019-03-12] MEDS: MethylPREDNISolone 40 MG/ML VIAL IVP SCH ×2 (05:50→17:34)
--- NOTE | 2019-03-12 08:36 | Event Note ---
Date of Encounter: 03/12/19 Time of Encounter: 07:30 i was told to go and see a patient that was assigned to me at 730 AM as she wished to go AMA from the ICU. i saw the patient at bedside and i evaluated her. she is Axox1. ( knows she is at [place], believes its April, reports that cristine is the president). she is tachycardic in the 120s and is saturating 89-90% o RA. she does not Have SI or HI I discussed the case with nurse who believed that the patient and that since she does not have capacity at this time and she cannot go AMA. I discussed this with the nurse managers and the house coordinators. as per dyehouse worker she was placed on a medical hold by the ICU team yesterday ( still valid as 24hrs is not up), as per the night team there was a medical hold placed at night also. psych was consulted to assist with withdrawal/capacity
--- NOTE | 2019-03-12 09:03 | Consult Note ---
Date of Encounter: 03/12/19 Time of Encounter: 08:25 Assessment & Recommendation (1) Opiate withdrawal Current visit: Yes Status: Acute Assessment & Recommendation: Patient symptoms are consistent with acute opiate withdrawal. We will she does have some benzodiazepine use and she is not currently exhibiting symptoms consistent with this withdrawal phenomenon though this should be continue to monitor for. To address her opiate withdrawal I would suggest Subutex 8 mg sublingual twice a day. She has previously been on this medication with success. If she can be linked with an outpatient Suboxone clinic this can be continued to improve her chances of recovery. Additionally when necessary Reglan or Bentyl can be used for abdominal cramping and when necessary Compazine, Zofran, or Phenergan can be used for nausea. In terms of her agitation I would recommend Haldol 5, Benadryl 50, Ativan [address] the Versed or Precedex. She is currently on a medical hold. When I evaluated her she did appear to have capacity however this can wax and wane and it appears that this morning when the attending met with her she was not oriented and therefore did not have full capacity. She does not meet pink slip or psychiatr ic hospitalization criteria. History of Present Illness Patient: new to practice Requesting Physician: Charity Sierra Reason for consult: opiate withdrawal, wants to AMA History of present illness: Ms. Olmedo is a 33 year old female who was transferred for acute respiratory failure after having to be intubated at an outside hospital due to a suspected opiate overdose. She has now been extubated but yesterday continued to have some low saturations off oxygen. She had requested to sign out AMA but due to her medical condition the physician put her on a medical hold. Psychiatry has been consulted for her opiate withdrawal symptoms and agitation. I spoke with her current attending who had seen her earlier this morning. She said that when she spoke with the patient the patient was not oriented to month or the president saying of present was Boni and the month was April. When I spoke with the patient she was alert and oriented 4. She looked very physically uncomfortable. She reported opiate withdrawal symptoms including stomach cramps, muscle aches, piloerection, rhinorrhea, chills, and flulike symptoms. To this point the unit has been trying Versed and Precedex to manage her withdrawal symptoms. She said she would like to leave him however she did understand that the medical team is requesting she stay. She said she was willing to stay if we could get her opiates symptoms under control. She has previously been treated with Subutex 8 mg twice a day and the community. She said this was successful. She does have a period of 5 years sobriety. She says she has been using 1-1/2 g of heroin for the past 3 months. She has never done inpatient detox before for opiates or other substances of abuse. She says she occasionally uses Xanax and amphetamines. She said she does not use alcohol. She denied depression, suicidal thoughts, homicidal thoughts. She did report some visual hallucinations earlier which she attributed to her withdrawal including seeing her children playing in the corner. She has not linked with outpatient mental health services and is not currently taking any psychiatric medications. His never been in a psychiatric hospital. CC: Charity Sierra Past Med Surg Social Fam HX - Past Medical History Medical history: COPD - Past Psychiatric History Psychiatric history: Reports: no psych history. Denies: prior suicide attempt, previous psychiatric hospitalization Family psychiatric history: No Family History of Suicide: None - Past Surgical History Surgical History: no surgical history - Social History Smoking Status: Current every day smoker Smokeless Tobacco Status: No Alcohol use: none Drug use: cocaine, opiates, IV Drug Use, prescription drug abuse - Family History Mother History Unknown: Yes Father History Unknown: Yes Medications & Allergies Albuterol Neb [Proventil Neb] 2.5 mg IH Q4HR PRN #30 vial.neb 02/14/19 [Rx] Albuterol Sulfate [Albuterol Inhaler] 2 puff IH Q4H PRN #1 inhaler 02/14/19 [Rx] PredniSONE [Deltasone] 60 mg PO DAILY #15 tablet 02/14/19 [Rx] Allergy/AdvReac Type Severity Reaction Status Date / Time No Known Allergies Allergy Verified 02/14/19 23:16 Review of Systems Constitutional: Reports: chills Eyes: Denies: eye pain Ears, Nose, Throat: Reports: congestion, other (Rhinorrhea) Cardiovascular: Denies: chest pain Respiratory: Reports: dyspnea Gastrointestinal: Reports: abdominal pain (Cramping) Musculoskeletal: Reports: joint pain, myalgia Integumentary: Reports: other (Some track gilmore) Neurological: Reports: other (The physician reported she was confused earlier) Psychiatric: Reports: visual hallucinations Endocrine: Reports: fatigue, heat or cold intolerance Hematologic/Lymphatic: Denies: easy bleeding Allergic/Immunologic: Denies: facial swelling Psychiatry Exam - Constitutional Vitals: Temp Pulse Resp BP Pulse Ox 98.7 F 87 22 129/79 97 03/12/19 07:35 03/12/19 04:20 03/12/19 04:20 03/12/19 04:20 03/12/19 04:20 General appearance: thin - Musculoskeletal Gait: other (In bed) Station: other (Curled up) Strength & Tone: mild weakness - Psychiatric Patient Orientation: Yes Person, Yes Time, Yes Place, Yes Circumstance Level of alertness: Alert Behavior: dramatic Psychomotor activity: Increased (Some rocking) Eye Contact: Minimal Contact Mood Description: Other (Pain) Patient description of mood: In pain Affect description: other (Expansive) Speech Volume: Normal Speech pattern: normal rate Language & Vocabulary: consistent with education Thought Process: Logical Thought Content: No Suicidal ideation, No Homicidal ideation Perceptual Disturbances: No Auditory hallucinations, Yes Visual hallucinations Attention Span Ability: Capable of Focused Attention Memory Description: Grossly Intact Patient Reliability: Reliable Historian Fund of knowledge: Yes abstraction ability, Yes aware of current events Intelligence Estimate: Average Judgment: Fair Insight: Partial Results - Drug Levels and Toxicology Drug Levels and Toxicology: Laboratory Results - last 72 hr 03/09/19 03/09/19 03/10/19 21:05 21:31 00:54 WBC RBC Hgb Hct MCV MCH MCHC RDW Plt Count MPV Immature Gran % Seg Neutrophils % Lymphocytes % Monocytes % Eosinophils % Basophils % Neutrophils # Lymphocytes # Monocytes # Eosinophils # Basophils # Sample Site L Radial ABG pH 7.25 L D 7.32 ABG pCO2 71 H* 55 H ABG pO2 131 H D 156 H ABG HCO3 31 H 28 H ABG Total CO2 33 H 30 H ABG O2 Saturation 98 99 H ABG Base Excess 2 2 Jerson Test N/A N/A Respiration Rate 12 16 O2 Delivery Device Adult Vent Adult Vent Blood Gas Modality VC VC Inspired O2 50.0 50.0 Tidal Volume 400 400 PEEP 5 5 Sodium Potassium Chloride Carbon Dioxide BUN Creatinine Est GFR ( Amer) Est GFR (Non-Af Amer) BUN/Creatinine Ratio Glucose POC Glucose 136 H Calculated Osmolality Calcium Phosphorus Magnesium Total Bilirubin Direct Bilirubin Indirect Bilirubin AST ALT Alkaline Phosphatase Creatine Kinase Serum Total Protein Albumin Globulin Albumin/Globulin Ratio Nasal Screen MRSA (PCR) Person Notif of Crit Dr. Guadarrama 03/10/19 03/10/19 03/10/19 04:00 04:00 04:35 WBC 12.6 H RBC 3.47 L Hgb 9.1 L D Hct 30.0 L MCV 86.5 MCH 26.2 L MCHC 30.3 L RDW 13.7 Plt Count 294 MPV 9.4 Immature Gran % 0.4 Seg Neutrophils % 90.1 Lymphocytes % 7.6 Monocytes % 1.4 Eosinophils % 0.2 Basophils % 0.3 Neutrophils # 11.3 H Lymphocytes # 1.0 Monocytes # 0.2 Eosinophils # 0.0 Basophils # 0.0 Sample Site L Radial ABG pH 7.35 ABG pCO2 50 H ABG pO2 98 D ABG HCO3 28 H ABG Total CO2 29 H ABG O2 Saturation 97 ABG Base Excess 2 Jerson Test N/A Respiration Rate 16 O2 Delivery Device Adult Vent Blood Gas Modality ASSIST CONTROL Inspired O2 40.0 Tidal Volume 350 PEEP 5 Sodium 140 Potassium 4.1 Chloride 104 Carbon Dioxide 27 BUN 10 Creatinine 0.78 Est GFR ( Amer) > 60 Est GFR (Non-Af Amer) > 60 BUN/Creatinine Ratio 13 Glucose 133 H POC Glucose Calculated Osmolality 291 Calcium 7.8 L Phosphorus Magnesium 2.0 Total Bilirubin Direct Bilirubin Indirect Bilirubin AST ALT Alkaline Phosphatase Creatine Kinase 1529 H Serum Total Protein Albumin Globulin Albumin/Globulin Ratio Nasal Screen MRSA (PCR) Person Notif of Crit 03/10/19 03/10/19 03/10/19 10:15 10:15 11:09 WBC 10.2 RBC 3.25 L Hgb 8.7 L Hct 27.9 L MCV 85.8 MCH 26.8 L MCHC 31.2 L RDW 13.6 Plt Count 286 MPV 9.6 Immature Gran % 0.4 Seg Neutrophils % 82.6 Lymphocytes % 14.2 Monocytes % 2.4 Eosinophils % 0.0 Basophils % 0.4 Neutrophils # 8.4 Lymphocytes # 1.5 Monocytes # 0.2 Eosinophils # 0.0 Basophils # 0.0 Sample Site ABG pH ABG pCO2 ABG pO2 ABG HCO3 ABG Total CO2 ABG O2 Saturation ABG Base Excess Jerson Test Respiration Rate O2 Delivery Device Blood Gas Modality Inspired O2 Tidal Volume PEEP Sodium Potassium Chloride Carbon Dioxide BUN Creatinine Est GFR ( Amer) Est GFR (Non-Af Amer) BUN/Creatinine Ratio Glucose POC Glucose 117 H Calculated Osmolality Calcium Phosphorus Magnesium Total Bilirubin Direct Bilirubin Indirect Bilirubin AST ALT Alkaline Phosphatase Creatine Kinase Serum Total Protein Albumin Globulin Albumin/Globulin Ratio Nasal Screen MRSA (PCR) Negative Person Notif of Crit 03/10/19 03/10/19 03/11/19 12:45 17:00 04:00 WBC 9.4 RBC 3.14 L Hgb 8.5 L Hct 26.5 L MCV 84.4 MCH 27.1 L MCHC 32.1 RDW 13.8 Plt Count 301 MPV 9.1 L Immature Gran % 0.4 Seg Neutrophils % 78.1 Lymphocytes % 15.8 Monocytes % 5.5 Eosinophils % 0.0 Basophils % 0.2 Neutrophils # 7.3 Lymphocytes # 1.5 Monocytes # 0.5 Eosinophils # 0.0 Basophils # 0.0 Sample Site ABG pH ABG pCO2 ABG pO2 ABG HCO3 ABG Total CO2 ABG O2 Saturation ABG Base Excess Jerson Test Respiration Rate O2 Delivery Device Blood Gas Modality Inspired O2 Tidal Volume PEEP Sodium Potassium Chloride Carbon Dioxide BUN Creatinine Est GFR ( Amer) Est GFR (Non-Af Amer) BUN/Creatinine Ratio Glucose POC Glucose Calculated Osmolality Calcium Phosphorus Magnesium Total Bilirubin 0.3 Direct Bilirubin 0.1 Indirect Bilirubin 0.2 AST 77 H ALT 50 Alkaline Phosphatase 111 H Creatine Kinase 791 H Serum Total Protein 6.0 L Albumin 3.1 L Globulin 2.9 Albumin/Globulin Ratio 1.1 Nasal Screen MRSA (PCR) Person Notif of Crit 03/11/19 03/11/19 03/12/19 04:00 07:15 04:30 WBC 8.0 RBC 3.37 L Hgb 8.9 L Hct 28.6 L MCV 84.9 MCH 26.4 L MCHC 31.1 L RDW 13.7 Plt Count 319 MPV 9.7 Immature Gran % 0.4 Seg Neutrophils % 68.3 Lymphocytes % 24.1 Monocytes % 6.8 Eosinophils % 0.1 Basophils % 0.3 Neutrophils # 5.5 Lymphocytes # 1.9 Monocytes # 0.5 Eosinophils # 0.0 Basophils # 0.0 Sample Site ABG pH ABG pCO2 ABG pO2 ABG HCO3 ABG Total CO2 ABG O2 Saturation ABG Base Excess Jerson Test Respiration Rate O2 Delivery Device Blood Gas Modality Inspired O2 Tidal Volume PEEP Sodium 141 Potassium 3.8 Chloride 109 H Carbon Dioxide 29 BUN 9 Creatinine 0.65 Est GFR ( Amer) > 60 Est GFR (Non-Af Amer) > 60 BUN/Creatinine Ratio 14 Glucose 115 H POC Glucose 107 H Calculated Osmolality 292 Calcium 8.2 L Phosphorus 2.7 Magnesium 1.9 Total Bilirubin Direct Bilirubin Indirect Bilirubin AST ALT Alkaline Phosphatase Creatine Kinase Serum Total Protein Albumin Globulin Albumin/Globulin Ratio Nasal Screen MRSA (PCR) Person Notif of Crit 03/12/19 04:30 WBC RBC Hgb Hct MCV MCH MCHC RDW Plt Count MPV Immature Gran % Seg Neutrophils % Lymphocytes % Monocytes % Eosinophils % Basophils % Neutrophils # Lymphocytes # Monocytes # Eosinophils # Basophils # Sample Site ABG pH ABG pCO2 ABG pO2 ABG HCO3 ABG Total CO2 ABG O2 Saturation ABG Base Excess Jerson Test Respiration Rate O2 Delivery Device Blood Gas Modality Inspired O2 Tidal Volume PEEP Sodium 140 Potassium 3.6 Chloride 105 Carbon Dioxide 26 BUN 10 Creatinine 0.71 Est GFR ( Amer) > 60 Est GFR (Non-Af Amer) > 60 BUN/Creatinine Ratio 14 Glucose 130 H POC Glucose Calculated Osmolality 291 Calcium 8.9 Phosphorus 3.5 Magnesium 1.8 Total Bilirubin Direct Bilirubin Indirect Bilirubin AST ALT Alkaline Phosphatase Creatine Kinase Serum Total Protein Albumin Globulin Albumin/Globulin Ratio Nasal Screen MRSA (PCR) Person Notif of Crit - Labs Labs: Laboratory Last Values WBC 8.0 K/mcL (4.3-11.1) 03/12/19 04:30 RBC 3.37 M/mcL (3.82-4.97) L 03/12/19 04:30 Hgb 8.9 g/dL (11.5-15.4) L 03/12/19 04:30 Hct 28.6 % (35.3-44.9) L 03/12/19 04:30 MCV 84.9 fL (83.0-100.0) 03/12/19 04:30 MCH 26.4 pg (28.0-33.3) L 03/12/19 04:30 MCHC 31.1 g/dL (31.6-35.5) L 03/12/19 04:30 RDW 13.7 % (11.5-14.5) 03/12/19 04:30 Plt Count 319 K/mcL (140-400) 03/12/19 04:30 MPV 9.7 fL (9.4-12.4) 03/12/19 04:30 Immature Gran % 0.4 % (0-4) 03/12/19 04:30 Seg Neutrophils % 68.3 % 03/12/19 04:30 24.1 % 03/12/19 04:30 6.8 % 03/12/19 04:30 0.1 % 03/12/19 04:30 0.3 % 03/12/19 04:30 5.5 K/mcL (1.6-8.9) 03/12/19 04:30 1.9 K/mcL (0.6-4.6) 03/12/19 04:30 0.5 K/mcL (0.0-1.3) 03/12/19 04:30 0.0 K/mcL (0.0-0.6) 03/12/19 04:30 0.0 K/mcL (0.0-0.2) 03/12/19 04:30 Sample Site L Radial 03/10/19 04:35 ABG pH 7.35 pH Units (7.32-7.45) 03/10/19 04:35 ABG pCO2 50 mmHg (35-45) H 03/10/19 04:35 ABG pO2 98 mmHg (85-104) D 03/10/19 04:35 ABG HCO3 28 mEq/L (21-27) H 03/10/19 04:35 ABG Total CO2 29 mEq/L (20-26) H 03/10/19 04:35 ABG O2 Saturation 97 % (95-98) 03/10/19 04:35 ABG Base Excess 2 mEq/L (-2 to 3) 03/10/19 04:35 N/A 03/10/19 04:35 Respiration Rate 16 03/10/19 04:35 O2 Delivery Device Adult Vent 03/10/19 04:35 ASSIST CONTROL 03/10/19 04:35 Inspired O2 40.0 (1-15=lpm [id number]%) 03/10/19 04:35 Tidal Volume 350 cc 03/10/19 04:35 PEEP 5 cm H2O 03/10/19 04:35 Sodium 140 mEq/L (136-145) 03/12/19 04:30 Potassium 3.6 mEq/L (3.5-5.1) 03/12/19 04:30 Chloride 105 mEq/L (98-107) 03/12/19 04:30 Carbon Dioxide 26 mEq/L (23-29) 03/12/19 04:30 BUN 10 mg/dL (6-20) 03/12/19 04:30 0.71 mg/dL (0.60-1.20) 03/12/19 04:30 Est GFR ( Amer) > 60 (> 60) 03/12/19 04:30 Est GFR (Non-Af Amer) > 60 (> 60) 03/12/19 04:30 14 (6-26) 03/12/19 04:30 Glucose 130 mg/dL (70-105) H 03/12/19 04:30 POC Glucose 107 mg/dL (70-99) H 03/11/19 07:15 291 (280-300) 03/12/19 04:30 Calcium 8.9 mg/dL (8.6-10.3) 03/12/19 04:30 Phosphorus 3.5 mg/dL (2.7-4.5) 03/12/19 04:30 Magnesium 1.8 mg/dL (1.6-2.6) 03/12/19 04:30 0.3 mg/dL (0.3-1.0) 03/10/19 12:45 0.1 mg/dL (0.0-0.2) 03/10/19 12:45 0.2 mg/dL (0.0-1.2) 03/10/19 12:45 AST 77 Units/L (13-39) H 03/10/19 12:45 ALT 50 Units/L (7-52) 03/10/19 12:45 111 Units/L (34-104) H 03/10/19 12:45 791 Units/L (30-223) H 03/10/19 17:00 6.0 g/dL (6.4-8.9) L 03/10/19 12:45 3.1 g/dL (3.5-5.7) L 03/10/19 12:45 2.9 g/dL (2.4-3.5) 05/17/19 12:45 1.1 (1.1-2.2) 03/10/19 12:45 Negative (Negative) 03/10/19 10:[address] Guadarrama 03/09/19 21:31 Consult Discharge Plan - Plan Referrals: NONE,PCP [Primary Care Provider] -
[2019-03-12] MEDS ORDERED: *HR* LORazepam 2 MG/ML VIAL IM PRN (09:07)
[2019-03-12] MEDS ORDERED: Haloperidol Lactate 5 MG/ML VIAL IM PRN (09:07)
[2019-03-12] MEDS ORDERED: hydrOXYzine pamoate 25 MG CAPSULE PO PRN (09:15)
[2019-03-12] MEDS: *HR* Buprenorphine HCl 2 MG SUBLINGUAL TABLET SL SCH ×2 (09:17→21:17)
[2019-03-12] MEDS ORDERED: Ondansetron ODT 4 MG TAB.RAPDIS SL PRN (10:27)
--- NOTE | 2019-03-12 13:16 | Internal Med Progress Note ---
Hospitalist Progress Note - Encounter Date of Encounter: 03/12/19 Time of Encounter: 07:15 - Subjective Interval History: 33 year old female who was transferred for acute respiratory failure s/p intubation at an outside hospital due to a suspected opiate overdose. She was admitted on 03/10 and was managed by the critical care team in the ICU. She was extubated yesterday however continued to desaturate. She was also having visual hallucinations and a medical hold was placed by the ICU attending. Overnight she expressed achieved which to go AGAINST MEDICAL ADVICE however again was found to have be in withdrawal and was not able to make decisions so she was placed on medical hold by the night physician. In the morning I was called to follow the patient as she was downgraded from the critical care team and was notified that the patient wanted to sign out AGAINST MEDICAL ADVICE. I saw and examined the patient and she was not oriented to month or the president saying of present was Obgabbi and the month was April. stomach cramps, muscle aches, piloerection, rhinorrhea, chills, and flulike symptoms. Past her if there was anything that we could do to make her comfortable so that she would stay in the hospital so we can further assess her oxygen needs/aspiration pneumonia. Psych was consulted as she was receiving Versed and Precedex for opiate withdrawal. She reported that she was willing to stay for opiate symptoms were under controlled. Psych Evaluated Patient and Recommended Subutex 8 Mg Twice a Day. She has visual hallucinations however denies SI or HI. - Exam Vitals: Temp Pulse Resp BP Pulse Ox 98.7 F 96 20 136/78 96 03/12/19 07:35 03/12/19 12:03 03/12/19 11:56 03/12/19 11:56 03/12/19 11:56 Exam: General: Patient is alert awake no acute distress, on Head: atraumatic, normocephalic, Eye: normal appearance, dilated pupils, PERRL, no scleral icterus, no conjunctival injection ENT: mucous membranes moist, normal external ear exam, poor dentition Neck: normal inspection, trachea midline, full ROM Chest: normal inspection, symmetric chest rise Respiratory: Good respiratory effort. Diffuse crackles in the posterior lung field, no wheezing. Cardiovascular: Tachycardic. s1 and s2 No clicks, rubs, gallops, or murmors. Abdomen: Bowel sounds present normoactive x-4 quadrants. Abdomen is soft, nondistended. no Epigastric tenderness. No guarding or rebound. No organomegaly noted musculoskeletal: Spontaneously moving all extremities. no edema, no calf tenderness Skin: warm, dry, intact. Neuro: Alert and oriented x1, moving all extremities, no focal deficit. Psych: Patient's affect is normal - Assessment and Plan (1) Acute respiratory failure with hypoxia and hypercapnia Current Visit: Yes Status: Acute Assessment and Plan: Secondary to drug overdose Was intubated and transferred to [facility] Status post extubation on 03/11. Continues to require oxygen via nasal cannula DuoNeb's Antibiotics as below We will continue supplemental oxygen to keep saturation greater than 88% and will need walking pulse oximetry prior to discharge (2) Opiate withdrawal Current Visit: Yes Status: Acute Assessment and Plan: Started on Subutex 8 mg twice a day as per psych recommendations "Additionally when necessary Reglan or Bentyl can be used for abdominal cramping and when necessary Compazine, Zofran, or Phenergan can be used for nausea. In terms of her agitation I would recommend Haldol 5, Benadryl 50, Ativan [address] of the Versed or Precedex. " (3) Drug overdose, multiple drugs Current Visit: No Status: Acute Assessment and Plan: Toxicology was positive for opiates and amphetamines Continue to monitor neurological status. (4) Acute on chronic anemia Current Visit: Yes Status: Acute Assessment and Plan: We will send anemia workup. Iron panel, folate, B12, reticulocyte count, LDH ordered FOBT Continue with Protonix GI consulted will follow recommendations (5) Rhabdomyolysis Current Visit: Yes Status: Acute Assessment and Plan: Continue with IV fluids CPK was 1529 on admission, trended down to 791 Follow in the morning (6) Aspiration pneumonia Current Visit: Yes Status: Suspected Assessment and Plan: Continue with Zosyn Will transition her to by mouth medication over the next 24 hours. MRSA swab was negative Blood cultures are negative to date (7) Tobacco abuse Current Visit: Yes Status: Acute Assessment and Plan: Was counseled. Nicotine patch provided. (8) DVT prophylaxis Current Visit: Yes Status: Acute Assessment and Plan: Heparin subcutaneous - Time Spent with Patient Total time spent is greater than 50% in coordination of care (as documented) at patient's floor/unit and/or counseling patient: Internal Medicine: Result - Labs CBC & Chem 7: 03/12/19 04:30 03/12/19 04:30 Labs: Short CBC 03/12/19 Range/Units 04:30 WBC 8.0 (4.3-11.1) K/mcL Hgb 8.9 L (11.5-15.4) g/dL Hct 28.6 L (35.3-44.9) % Plt Count 319 (140-400) K/mcL Neutrophils # 5.5 (1.6-8.9) K/mcL BMP 03/12/19 04:30 Sodium 140 Potassium 3.6 Chloride 105 Carbon Dioxide 26 BUN 10 Creatinine 0.71 Glucose 130 H Calcium 8.9 - ABG Interpretation ABG results: ABG ABG pH 7.35 pH Units (7.32-7.45) 03/10/19 04:35 ABG pCO2 50 mmHg (35-45) H 03/10/19 04:35 ABG pO2 98 mmHg (85-104) D 03/10/19 04:35 ABG O2 Saturation 97 % (95-98) 03/10/19 04:35 Consult Discharge Plan - Plan Referrals: NONE,PCP [Primary Care Provider] - (3) Drug overdose, multiple drugs Qualifiers: Encounter type: initial encounter Injury intent: accidental or unintentional Qualified Code(s): T50.901A - Poisoning by unspecified drugs, medicaments and biological substances, accidental (unintentional), initial encounter (5) Rhabdomyolysis Qualifiers: Rhabdomyolysis type: non-traumatic Qualified Code(s): M62.82 - Rhabdomyolysis (6) Aspiration pneumonia Qualifiers: Aspiration pneumonia type: unspecified Laterality: unspecified laterality Lung location: unspecified part of lung Qualified Code(s): J69.0 - Pneumonitis due to inhalation of food and vomit
[2019-03-12] MEDS: Nicotine 14 MG PATCH.TD24 TD SCH (15:14)
[2019-03-12] MEDS: *HR* Heparin 5,000 UNIT/ML VIAL SQ SCH ×2 (15:17→21:16)
[2019-03-13] MEDS: Ipratropium/Albuterol Neb 3 ML IH SCH ×2 (03:33→10:43)
[2019-03-13 04:57] LABS: Hematocrit 30.9 % (35.3-44.9); Hemoglobin 9.6 g/dL (11.5-15.4); Mean Corpuscular HGB Conc 31.1 g/dL (31.6-35.5); Mean Corpuscular Hemoglobin 26.4 pg (28.0-33.3); Mean Corpuscular Volume 85.1 fL (83.0-100.0); Mean Platelet Volume 9.7 fL (9.4-12.4); Platelet Count 372 K/mcL (140-400); Red Blood Count 3.63 M/mcL (3.82-4.97); Red Cell Distribution Width 13.5 % (11.5-14.5)
[2019-03-13 05:14] LABS: Alanine Aminotransferase 48 Units/L (7-52); Albumin 3.4 g/dL (3.5-5.7); Albumin/Globulin Ratio 1.3 (1.1-2.2); Alkaline Phosphatase 97 Units/L (34-104); Aspartate Amino Transferase 29 Units/L (13-39); BUN/Creatinine Ratio 18 (6-26); Bilirubin,Total 0.2 mg/dL (0.3-1.0); Blood Urea Nitrogen 12 mg/dL (6-20); Calcium 8.7 mg/dL (8.6-10.3); Carbon Dioxide 29 mEq/L (23-29); Chloride 104 mEq/L (98-107); Globulin 2.6 g/dL (2.4-3.5); Glucose 156 mg/dL (70-105); Magnesium 1.7 mg/dL (1.6-2.6); Osmolality,Calculated 295 (280-300); Potassium 3.7 mEq/L (3.5-5.1); Sodium 141 mEq/L (136-145); eGFR For Non-African Americans > 60 (> 60)
[2019-03-13] MEDS: MethylPREDNISolone 40 MG/ML VIAL IVP SCH (06:04)
[2019-03-13] MEDS: *HR* Heparin 5,000 UNIT/ML VIAL SQ SCH (06:04)
[2019-03-13] MEDS: Nicotine 14 MG PATCH.TD24 TD SCH (08:22)
[2019-03-13] MEDS: *HR* Buprenorphine HCl 2 MG SUBLINGUAL TABLET SL SCH (08:23)
--- NOTE | 2019-03-13 09:55 | Discharge Summary ---
- NOTES TO OUTPATIENT PROVIDER Notes to Outpatient Provider: follow up with PCP and have blood glucose and A1c followed as A1c on hospitalization was 6.4. follow up with GI Orders not resulted at time of discharge: Pending orders 03/09/19 21:37 Culture,Blood [BC] Routine Sputum Culture [Culture,Sputum with Gram Stain] [RM] Routine 03/13/19 04:20 Hgb A1C AM 0400 Date of Encounter: 03/13/19 Time of Encounter: 09:53 - Discharge Diagnosis (1) Acute respiratory failure with hypoxia and hypercapnia Priority: Primary Status: Acute (2) Opiate withdrawal Priority: Secondary Status: Acute (3) Drug overdose, multiple drugs Priority: Secondary Status: Acute Qualifiers: Encounter type: initial encounter Injury intent: accidental or unintentional Qualified Code(s): T50.901A - Poisoning by unspecified drugs, medicaments and biological substances, accidental (unintentional), initial encounter (4) Acute on chronic anemia Priority: Secondary Status: Acute (5) Rhabdomyolysis Priority: Secondary Status: Acute Qualifiers: Rhabdomyolysis type: non-traumatic Qualified Code(s): M62.82 - Rhabdomyolysis (6) Aspiration pneumonia Priority: Secondary Status: Suspected Qualifiers: Aspiration pneumonia type: unspecified Laterality: unspecified laterality Lung location: unspecified part of lung Qualified Code(s): J69.0 - Pneumonitis due to inhalation of food and vomit (7) Tobacco abuse Priority: Secondary Status: Acute (8) DVT prophylaxis Priority: Secondary Status: Acute (9) Newly diagnosed diabetes Priority: Secondary Status: Acute Assessment and Plan: a1c 6.4 Hospital course: "Ms. Olmedo is a 33 year old female with no known past medical history who was transferred from [facility]. She was presented via EMS to outside facility as she was breathing 3 times per minute. At presentation she was awake but agitated and complaining of severe shortness of breath. She received 2 mg of nasal Narcan at [facility]. Her respiratory status became labored and had severe dyspnea subsequently requiring intubation. Her urine drug screen was positive for amphetamine and opioids. Her initial ABG showed respiratory acidosis with PCO2 of 108 and pH of 6.97. She was also noted to have WBC of 17.6 with elevated platelets of 572. At outside ED she had bilateral external jugular lines placed. No further history as she is currently intubated. " She had above admission course and was managed in the ICU by the critical care team. She was extubated on 03/11 and placed on nasal cannula which was weaned off to room air. MRSA swab was negative so antibiotics were de-escalate as to Zosyn and transitioned to oral antibiotics Augmentin on discharge to complete a seven- day course.bcx NGTD, remained afebrile with stable vitals and without leukocytosis she as saturating well on RA. 6 minute walk test was performed. to finish course of ABX- continue with home inhalers. She was an opiate withdrawal post extubation and was alert and oriented 1 on 03/12 so psych was consulted for recommendations for medications for withdrawal. Upon psych evaluation she was found to have capacity to make medical decisions on 03/12. as per Psych recs for withdrawals, "To address her opiate withdrawal I would suggest Subutex 8 mg sublingual twice a day. She has previously been on this medication with success. If she can be linked with an outpatient Suboxone clinic this can be continued to improve her chances of recovery. Additionally when necessary Reglan or Bentyl can be used for abdominal cramping and when necessary Compazine, Zofran, or Phenergan can be used for nausea. In terms of her agitation I would recommend Haldol 5, Benadryl 50, Ativan [address] the Versed or Precedex." subutex was started as per psych recommendations on 03/13 with the help of pharmacists and after speaking to florian delgado as she is now Axox3 she has not been taking subutex and has lost follow up with her prescribing physician since late december and early january. subutex was immediately stopped after i received this information. SW was consulted to provide patient with information/resources for drug rehab. H/h remained stable - to folow up with Gi as op- Nursing staff aware to provide information. on discharge she was Axox3 and had capacity to make medical decisions, She denied depression, suicidal thoughts, homicidal thoughts. she understood her medical conditions and treatment course. i discussed that her A1c is 6.4 and diet, nutrition was discussed with her. she is to follow up with her PCP and for the PCP to start her on oral medications as per their discretion. she was counseled extensively on drug, smoking. she has plans to follow with information provided by social work. I discussed that she has Lower extremity abnormal superficial exam: right lesser saphenous vein demonstrates acute thrombosis. to continue with elevation and warm compresses. she was counseled on oral hydration as she did have elevated CPK which trended down with IV hydration she was counseled on diet and exercise Discharge discussed with: patient, nurse, social work, case management, caterina mustafa Time spent discussing smoking cessation with patient: more than 10 minutes - Time Spent with Patient Total time spent providing and/or coordinating discharge services: Time spent: Greater than 30 minutes (40) - Discharge Medications Prescriptions: New Amoxicillin/Clavulanate [Augmentin] 875 mg PO BIDWM 3 Days #6 tablet Omeprazole [PriLOSEC] 20 mg PO DAILY@0730 #30 capsule.[address] Aguiar Albuterol Neb [Proventil Neb] 2.5 mg IH Q4HR PRN #30 vial.neb PRN Reason: sob Albuterol Sulfate [Albuterol Inhaler] 2 puff IH Q4H PRN #1 inhaler PRN Reason: Cough PredniSONE [Deltasone] 60 mg PO DAILY #15 tablet Home Medications: Amoxicillin/Clavulanate [Augmentin] 875 mg PO BIDWM 3 Days #6 tablet 03/13/19 [Rx] Omeprazole [PriLOSEC] 20 mg PO DAILY@0730 #30 capsule. 03/13/19 [Rx] Allergies/Adverse Reactions: Allergy/AdvReac Type Severity Reaction Status Date / Time No Known Allergies Allergy Verified 02/14/19 23:16 Date of admission: 03/10/19 02:45 Primary care physician: PCP NONE Consults: 03/10/19 02:21 Consult to Critical Care [CONS] Routine Consulting Provider: [facility] [place] Reason for Consult: Acute respiratory failure. Intubated after substance overdose; diffuse wheezing Call Completed: No 03/11/19 10:02 Consult to Gastroenterology [CONS] Routine Consulting Provider: Gastroenterology [facility] Reason for Consult: Blood in og suction, drop in hgb 12.5-9.4 Time Notified: 10:03 Call Completed: No 03/12/19 07:48 Consult to Psychiatry [CONS] Stat Consulting Provider: Psychiatry K[facility] Reason consult: Agitation Other reason and/or additional details: sandy OD, was intubated now extubated axox1 was forcd by nursing staff to sign her out AMA and she was placed by on medical hold by my colleague - Constitutional Vitals: Temp Pulse Resp BP Pulse Ox 97.9 F 87 16 104/64 93 03/13/19 04:02 03/13/19 04:02 03/13/19 04:02 03/13/19 04:02 03/13/19 04:02 General appearance: Present: underweight Exam: General: Patient is alert awake no acute distress, spekas in full sentences, walking in the room without difficulty Head: atraumatic, normocephalic, Eye: normal appearance, dilated pupils, PERRL, no scleral icterus, no conjunctival injection ENT: mucous membranes moist, normal external ear exam, poor dentition Neck: normal inspection, trachea midline, full ROM Chest: normal inspection, symmetric chest rise Respiratory: Good respiratory effort. decreased breath sounds bilaterally, no wheeing, occasional crackles Cardiovascular: Tachycardic. s1 and s2 No clicks, rubs, gallops, or murmors. Abdomen: Bowel sounds present normoactive x-4 quadrants. Abdomen is soft, nondistended. no Epigastric tenderness. No guarding or rebound. No organomegaly noted musculoskeletal: Spontaneously moving all extremities. no edema, no calf tenderness Skin: warm, dry, intact. has chronic skin [place] with dark discoloration Neuro: Alert and oriented x3, moving all extremities, no focal deficit. Psych: Patient's affect is normal - Patient Status Disposition: Home, Self-Care Condition: Fair Functional capacity at discharge: independent ambulation Overall status at discharge: patient is progressing back to baseline - Discharge Instructions Follow Up With: Avinash Sierra [Other] - 05/12/19 1:50 pm Min Pace MD [Partnered Physician] - 03/17/19 11:30 am Clark Morris MD [Partnered Physician] - Additional Instructions: A1c is 6.4 and diet, nutrition was discussed with her. she is to follow up with her PCP and for the PCP to start her on oral medications as per their discretion. follow up information/resources for drug rehab folow up with Gi as op- for anemia - Diet and Activity Activity: increase activity as tolerated Diet: diabetic diet
[2019-03-13 10:04] LABS: Estimated Average Glucose 137 mg/dl; Hemoglobin A1C 6.4 %
[2019-03-13] MEDS ORDERED: Acetaminophen 325 MG TABLET PO ONE (11:09)
[2019-03-13 11:42] VITALS: BP 135/82
--- NOTE | 2019-03-13 14:21 | Gastroenterology Consult Note ---
Date of Encounter: 03/13/19 Time of Encounter: 11:00 - Assessment and plan (1) Anemia Status: Acute Assessment and plan: On admission Hgb 11.2, dropped to 8.5 on 03/11, and today Hgb 9.6. Hgb stable now. Transfuse PRBC as needed. Iron panel, folate, B12, reticulocyte count, LDH ordered by primary team. Recommend daily PPI. No NSAIDs. Follow up in 4 weeks as outpatient. Consider EGD as outpatient. Qualifiers: Anemia type: unspecified type Qualified Code(s): D64.9 - Anemia, unspecifi ed (2) Drug overdose, multiple drugs Status: Acute Assessment and plan: Toxicology was positive for opiates and amphetamines. Qualifiers: Encounter type: initial encounter Injury intent: accidental or unintentional Qualified Code(s): T50.901A - Poisoning by unspecified drugs, medicaments and biological substances, accidental (unintentional), initial encounter - Time Spent With Patient Total time spent is greater than 50% in coordination of care (as documented) at patient's floor/unit and/or counseling patient: GI History of Present Illness - Data of Consult Patient: new to practice Consult date: 03/13/19 Requesting Physician: Keesha Mendez MD - Consult Narrative Reason for consult: Anemia History of present illness: Ms. Olmedo is a 33 year old female with PMHx of COPD, IV drug use, was transferred from [facility] who presented there via EMS having a respiratory rate of 3 and received Narcan. Her respiratory status became labored and had severe dyspnea subsequently requiring intubation. She was extubated 03/10. Drug screen positive for opiates and amphetamines. We were consulted to evaluate her anemia. On admission Hgb 11.2, dropped to 8.5 on 03/11, and today Hgb 9.6. No melena, hematchezia, or hematemesis. Procedures: None NSAIDs: None Anticoagulation: None Past Med Surg Social Fam HX - Past Medical History Medical history: COPD Additional medical history: PNEUMONIA, IV DRUG USE , WEARS HOME O2 AT 2LPM VIA NC PRN Psychiatric history: no psych history - Past Surgical History Surgical History: no surgical history - Social History Smoking Status: Current every day smoker Smokeless Tobacco Status: No Alcohol use: none Drug use: cocaine, opiates, IV Drug Use, prescription drug abuse - Family History Mother History Unknown: Yes Father History Unknown: Yes - Gastrointestinal Gastrointestinal: Present: as per HPI - Constitutional Constitutional: as per HPI - EENT Eyes: as per HPI Ears: Present: as per HPI Nose, mouth and throat: Present: as per HPI - Cardiovascular Cardiovascular ROS: Present: as per HPI - Respiratory Respiratory IM: Present: as per HPI - Genitourinary Genitourinary: Absent: change in color, Urinary frequency - Neurological ROS Neurological GI: Present: as per HPI - Hematologic/Lymphatic Hematologic/Lymphatic pediatric: Present: as per HPI - Musculoskeletal Musculoskeletal ROS GI: Present: as per HPI - Integumentary Integumentary GI: Present: as per HPI - Psychiatric ROS Psychiatric GI: Present: as per HPI - Endocrine Endocrine IM: Present: as per HPI - Constitutional Vitals: Temp Pulse Resp BP Pulse Ox 97.5 F L 96 15 135/82 96 03/13/19 11:40 03/13/19 11:40 03/13/19 11:40 03/13/19 11:40 03/13/19 11:40 General appearance: Present: cooperative, A&O X 3, no acute distress, answers questions appropriately - Head Head exam: Present: atraumatic, normocephalic - Eye Eye exam: Present: normal appearance, sclera anicteric - ENT ENT exam: Present: mucous membranes moist - Neck Neck exam general surgery: Present: normal inspection, trachea midline - Respiratory Respiratory exam: Present: decreased breath sounds, CTAB - Cardiovascular Cardiovascular exam: Present: RRR, +S1, +S2 - GI/Abdominal GI/Abdominal exam: Present: soft, no peritoneal signs. Absent: distended, firm, guarding, tenderness - Rectal Rectal exam: Present: deferred - Extremities Exam Extremities exam: Present: warm - Neurological Exam Neurological exam: Present: no focal deficits - Psychiatric Psychiatric exam: Present: normal affect, normal mood - Skin Skin exam: Present: dry, intact, normal color, warm Results - Labs CBC & Chem 7: 03/13/19 04:20 03/13/19 04:20 Labs: Last Result 03/13/19 04:20 Calcium 8.7 Entire Visit 03/13/19 03/13/19 04:20 04:20 Hgb 9.6 L Hct 30.9 L Total Bilirubin 0.2 L AST 29 ALT 48 - ABG ABG results: ABG ABG pH 7.35 pH Units (7.32-7.45) 03/10/19 04:35 ABG pCO2 50 mmHg (35-45) H 03/10/19 04:35 ABG pO2 98 mmHg (85-104) D 03/10/19 04:35 ABG O2 Saturation 97 % (95-98) 03/10/19 04:35 Consult Discharge Plan - Plan Instructions: Hypoxia (GEN) Additional Instructions: A1c is 6.4 and diet, nutrition was discussed with her. she is to follow up with her PCP and for the PCP to start her on oral medications as per their discretion. follow up information/resources for drug rehab folow up with Gi as op- for anemia Referrals: Avinash Sierra [Other] - 05/12/19 1:50 pm Min Pace MD [Partnered Physician] - 03/17/19 11:30 am Clark Morris MD [Partnered Physician] - Prescriptions: Amoxicillin/Clavulanate [Augmentin] 875 mg PO BIDWM 3 Days #6 tablet Omeprazole [PriLOSEC] 20 mg PO DAILY@0730 #30 capsule.
== END 2019-03-13 12:55 | disposition home or self-care (01) | DRG 917 ==
LOC: 2NNU → ICNU 21:12 → 3ANU 03-12 18:23
PROVIDERS: ADMIT Internal Medicine Nephrology; ATTEND Internal Medicine

== ENCOUNTER 2019-07-07 20:05 | Inpatient (IN) ==
--- NOTE | 2019-07-07 20:44 | Emergency Department Note ---
Disposition Clinical Impression: Septic embolism, Cavitary lesion of lung, Low hemoglobin, Sepsis Endocarditis Qualifiers: Endocarditis type: infective Infective endocarditis organism: unspecified organism Chronicity: acute Qualified Code(s): I33.0 - Acute and subacute infective endocarditis Disposition: Admitted As Inpatient Condition: Critical Referrals: Min Pace MD [Primary Care Provider] - Forms: ED Satisfaction Letter Time of Disposition: 01:47 General Adult HPI - General Chief complaint: ED Upper Respiratory Infection Stated complaint: dr called ahead, blister inside mouth, cant walk Time Seen by Provider: 07/07/19 20:40 Source: patient Limitations: no limitations Nursing Notes Reviewed: Yes Vital Signs Reviewed: Yes - History of Present Illness HPI Narrative: Patient is a 33-year-old female presenting with multiple complaints. Patient with known history of IV drug use, COPD and hypertension. Patient states that for the past week she has noticed since objective fevers and chills, temperature home is been up to 103 Fahrenheit, as well as diffuse chest pain and shortness of breath, no significant cough or sputum production. She also states that she has been having low back pain with weakness in her bilateral lower extremities, she states that she has sharp pain going down her left side of her back going into the left leg, states is sharp shooting in nature with numbness and tingling at times, denies head anesthesia, urinary or fecal incontinence. She denies history of spinal abscess or endocarditis in the past. No hematemesis or hematochezia, no melena. No history of GI bleed. Pain Scale: 9 - Related Data Previous Rx's Medication Instructions Recorded Omeprazole [PriLOSEC] 20 mg PO DAILY@0730 #30 capsule. 03/13/19 Allergies Allergy/AdvReac Type Severity Reaction Status Date / Time No Known Allergies Allergy Verified 07/07/19 20:27 All systems ED: reviewed and negative except as stated. Review of Systems: As Per HPI Constitutional: Reports: fever, chills ENT ED: Denies: congestion Cardiovascular: Reports: chest pain, palpitations, dyspnea on exertion. Denies: syncope Respiratory: Denies: cough, dyspnea, wheezes Gastrointestinal: Denies: abdominal pain, nausea, vomiting, diarrhea, hematem esis, melena, hematochezia Genitourinary: Denies: dysuria, frequency, hematuria Musculoskeletal: Reports: back pain Integumentary: Denies: rash Neurological: Reports: weakness, numbness, paresthesias. Denies: headache, confusion, abnormal gait Endocrine: Reports: fatigue Past Medical History - Past Medical History Medical history: Reports: COPD, diabetes, other Surgical history: Reports: no surgical history Psychiatric history: Reports: no psych history BAR TENDER history: Reports: other - Social History Smoking Status: Current every day smoker Smokeless Tobacco Status: No Alcohol use: Reports: none Drug use: Reports: cocaine, opiates, IV Drug Use, prescription drug abuse Physical Exam - General Limitations: no limitations General appearance: alert, in distress - Head Head exam: normocephalic - Eye Eye exam: Present: PERRL, EOMI. Absent: scleral icterus, conjunctival injection - ENT ENT exam: mucous membranes dry - Chest Chest inspection: Present: symmetric chest wall rise - Respiratory Respiratory exam: Present: other (Patient with decreased sounds bilaterally, with diffuse wheezing and crackles) - Cardiovascular Cardiovascular exam: Present: normal rhythm, tachycardia - Abdominal Exam Abdominal exam: Present: soft, Non-Tender. Absent: tenderness, distention, guarding, rebound, rigidity - Extremities Exam Extremities exam: Present: normal capillary refill. Absent: calf tenderness - Expanded Lower Extremity Exam Neurovascular/Tendon exam: Present: normal capillary refill. Absent: pulse deficit, motor deficit, sensory deficit - Back Exam Back exam: Present: vertebral tenderness (Patient with palpation to the midline spine to the lumbar region, but no cervical, thoracic midline tenderness, no appears pale tenderness, positive straight leg raise on the left and right) - Neurological Exam Neurological exam: Present: alert, oriented X3 - Psychiatric Psychiatric exam: Present: anxious - Skin Skin exam: Present: warm, dry, diaphoresis, pallor. Absent: cyanosis Course Vital Signs Temperature 98 F 07/07/19 20:28 Pulse Rate 130 07/07/19 20:28 Respiratory Rate 20 07/07/19 20:28 Blood Pressure 95/56 07/07/19 20:28 O2 Sat by Pulse Oximetry 100 07/07/19 20:28 Temperature 102.9 F H 07/08/19 00:52 Pulse Rate 136 07/08/19 00:52 Respiratory Rate 22 07/08/19 00:52 Blood Pressure 95/70 07/08/19 00:52 O2 Sat by Pulse Oximetry 98 07/08/19 00:52 Oxygen Delivery Oxygen Delivery Room Air Medical Decision Making - MDM Narrative Medical decision making narrative: Patient is a 33-year-old female presenting with multiple complaints. On arrival, patient is tachycardic, she appears in distress and unwell, she is cachectic in nature and anxious, patient's blood pressure is 99 systolic, she is afebrile on arrival. Immediate a concern for epidural abscess as well as endocarditis given history of IV drug use. Patient admits to IV heroin use as well as amphetamines and cocaine use. She denies recent use. Given concern for acute infection, patient was given immediately 30 mL/kg bolus, patient was started on vancomycin and Zosyn. Blood cultures were performed as well as lactic acid. Patient's hemoglobin was found to be 6.6, type and screen was immediately ordered and 2 units of PRBCs were ordered, instructed to given one unit. MRI of the cervical, thoracic and lumbar spine was performed, this does show no sign of epidural abscess or cauda equina, there is note for C5-C6 protrusion causing moderate central canal stenosis, this could be causing the patient's lower extremity pain, however no emergent need for surgical intervention. Patient's CTA is limited but does not identify pulmonary embolism, however there are multiple septic emboli with multiple cavitary lesions. As MRI as well as CTA took some time, fluids unfortunately were not started immediately, however upon return from MRI and CT, fluids were started, patient's blood pressure remained consistent. As the patient was started on the fluids, patient's blood pressure was taken while I was in the room and shows to be 110 systolic. Patient heart rate is currently [address] results, there is significant concern for endocarditis as suspected on initial presentation, as well as septic emboli, patient has been treated appropriately at this point in time with vancomycin and Zosyn. She is received her total 3 mL/kg bolus, patient has been responsive to IV fluids, therefore the patient has at no time during her ED stay gone into septic shock. Patient did not require further central line placement as her map has remained above 65. Patient has been admitted, per my recommendation that the patient be admitted to ICU given significant severity of disease. Patient has been admitted by the hospitalist, and will be going to the ICU. - Medical Records Medical records reviewed: Yes I reviewed the patient's medical records. - Lab Data Lab results reviewed: Yes I reviewed the patient's lab results. Result diagrams: 07/07/19 21:31 07/07/19 21:31 Lab Results 07/07/19 07/07/19 07/07/19 Range/Units 21:31 21:31 21:31 WBC 9.0 (4.3-11.1) K/mcL RBC 2.85 L (3.82-4.97) M/mcL Hgb 6.6 L (11.5-15.4) g/dL Hct 21.3 L (35.3-44.9) % MCV 74.7 L (83.0-100.0) fL MCH 23.2 L (28.0-33.3) pg MCHC 31.0 L (31.6-35.5) g/dL RDW 16.0 H (11.5-14.5) % Plt Count 299 (140-400) K/mcL MPV 9.9 (9.4-12.4) fL Immature Gran % 1.1 (0-4) % Seg Neutrophils % 89.8 % Lymphocytes % 6.2 % Monocytes % 2.7 % Eosinophils % 0.1 % Basophils % 0.1 % Neutrophils # 8.1 (1.6-8.9) K/mcL Lymphocytes # 0.6 (0.6-4.6) K/mcL Monocytes # 0.2 (0.0-1.3) K/mcL Eosinophils # 0.0 (0.0-0.6) K/mcL Basophils # 0.0 (0.0-0.2) K/mcL PT 19.0 H (9.4-12.1) Seconds INR 1.7 APTT 38.4 H (26.0-36.0) Seconds Sodium 135 L (136-145) mEq/L Potassium 3.5 (3.5-5.1) mEq/L Chloride 95 L (98-107) mEq/L Carbon Dioxide 29 (23-29) mEq/L BUN 9 (6-20) mg/dL Creatinine 0.60 (0.60-1.20) mg/dL Est GFR ( Amer) > 60 (> 60) Est GFR (Non-Af Amer) > 60 (> 60) BUN/Creatinine Ratio 15 (6-26) Glucose 144 H (70-105) mg/dL Calculated Osmolality 281 (280-300) Lactic Acid (0.5-2.2) mmol/L Calcium 7.9 L (8.6-10.3) mg/dL Phosphorus 4.2 (2.7-4.5) mg/dL Magnesium 2.3 (1.6-2.6) mg/dL Total Bilirubin 0.4 (0.3-1.0) mg/dL Direct Bilirubin 0.1 (0.0-0.2) mg/dL Indirect Bilirubin 0.3 (0.0-1.2) mg/dL AST 36 (13-39) Units/L ALT 26 (7-52) Units/L Alkaline Phosphatase 274 H (34-104) Units/L Troponin I < 0.03 (< 0.04) ng/mL Serum Total Protein 7.1 (6.4-8.9) g/dL Albumin 2.7 L (3.5-5.7) g/dL Globulin 4.4 H (2.4-3.5) g/dL Albumin/Globulin Ratio 0.6 L (1.1-2.2) 07/07/19 Range/Units 21:31 WBC (4.3-11.1) K/mcL RBC (3.82-4.97) M/mcL Hgb (11.5-15.4) g/dL Hct (35.3-44.9) % MCV (83.0-100.0) fL MCH (28.0-33.3) pg MCHC (31.6-35.5) g/dL RDW (11.5-14.5) % Plt Count (140-400) K/mcL MPV (9.4-12.4) fL Immature Gran % (0-4) % Seg Neutrophils % % Lymphocytes % % Monocytes % % Eosinophils % % Basophils % % Neutrophils # (1.6-8.9) K/mcL Lymphocytes # (0.6-4.6) K/mcL Monocytes # (0.0-1.3) K/mcL Eosinophils # (0.0-0.6) K/mcL Basophils # (0.0-0.2) K/mcL PT (9.4-12.1) Seconds INR APTT (26.0-36.0) Seconds Sodium (136-145) mEq/L Potassium (3.5-5.1) mEq/L Chloride (98-107) mEq/L Carbon Dioxide (23-29) mEq/L BUN (6-20) mg/dL Creatinine (0.60-1.20) mg/dL Est GFR ( Amer) (> 60) Est GFR (Non-Af Amer) (> 60) BUN/Creatinine Ratio (6-26) Glucose (70-105) mg/dL Calculated Osmolality (280-300) Lactic Acid 1.7 (0.5-2.2) mmol/L Calcium (8.6-10.3) mg/dL Phosphorus (2.7-4.5) mg/dL Magnesium (1.6-2.6) mg/dL Total Bilirubin (0.3-1.0) mg/dL Direct Bilirubin (0.0-0.2) mg/dL Indirect Bilirubin (0.0-1.2) mg/dL AST (13-39) Units/L ALT (7-52) Units/L Alkaline Phosphatase (34-104) Units/L Troponin I (< 0.04) ng/mL Serum Total Protein (6.4-8.9) g/dL Albumin (3.5-5.7) g/dL Globulin (2.4-3.5) g/dL Albumin/Globulin Ratio (1.1-2.2) - Radiology Data Radiology results reviewed: Yes I reviewed the patient's radiology results. Chest X-Ray 07/07/19 20:58 IMPRESSION: Diffuse bilateral heterogeneous opacities may represent an infectious/inflammatory process or pulmonary edema. Ill-defined right upper lobe nodular opacity with central lucency raises concern for cavitary lesion. Recommend short-term follow-up chest CT for further evaluation. D/ / Satish Sessions / Satish Muñiz Interpreting Provider: Satish Muñiz Cervical Spine MRI 07/07/19 21:07 IMPRESSION: C5-6 disc protrusion as described with resulting moderate central canal stenosis. No evidence of osteomyelitis in the cervical spine. D/ / Petar Fraser MD / Petar Fraser MD Interpreting Provider: Petar Fraser MD Lumbar Spine MRI 07/07/19 21:07 IMPRESSION: No significant abnormality of thoracic or lumbar spine. D/ / Petar Fraser MD / Petar Fraser MD Interpreting Provider: Petar Fraser MD Thoracic Spine MRI 07/07/19 21:07 IMPRESSION: No significant abnormality of thoracic or lumbar spine. D/ / Petar Fraser MD / Petar Fraser MD Interpreting Provider: Petar Fraser MD Chest CTA 07/08/19 00:01 IMPRESSION: Limited evaluation of the subsegmental pulmonary arterial branches. No central or segmental pulmonary thromboembolism. That said, there is evidence of septic emboli, with multiple cavitary lesions with associated feeding vessels, largest seen within the right upper lobe. These lesions must be followed to resolution to ensure that there is no underlying neoplasm. Mediastinal lymphadenopathy, which is presumably reactive. That should be followed up as well. D/ / Andrew Watson MD / Andrew Watson MD Interpreting Provider: Andrew Watson MD - EKG Data EKG #1 EKG attestation: Yes I reviewed and interpreted this EKG. EKG results narrative: EKG performed at 2140 with ventricular rate of 105, regular rhythm, normal axis, no ST segment elevation, depression or T-wave changes. Attestation Statement - Attestation Attestation: I, Marvin Brooks, examined this patient and my medical decision-making was reviewed with the SEWING MACHINE ASSEMBLER/PA/Advanced Practice Nurse/Resident Physician. I agree with the documented findings, disposition and treatment plan as described except to the extent set forth below. 33-year-old female presents emergency Department with concerns of fever, generalized malaise, vomiting. She also has significant pain to the left lower extremity and her low back with numbness and weakness the left lower extremity.. Patient has a history of IV drug use, last use was 3 months ago. Patient reports increased shortness of breath over the past 1-2 weeks. We have concerns for possible epidural abscess secondary to the patient's IV drug use. MRI was obtained which did not show evidence of epidural abscess. CT of the chest with IV contrast shows multiple septic emboli with cavitary lesions without evidence of PE. Patient was started on IV antibiotics after the initial evaluation. She is likely septic with concerns for endocarditis. Patient was mildly hypotensive and tachycardic which improved with IV fluids. She was anemic and blood for transfusion was ordered after the initial evaluation. Patient will be admitted to the ICU for further care and evaluation. Patient is awake and alert and vital signs stable at the time of admission to the hospitalist to the ICU.
[2019-07-07] MEDS ORDERED: Gadolinium Contrast Agent (WT Based) IV PRN (21:07)
[2019-07-07] MEDS ORDERED: Piperacillin/Tazobactam 3.375 GM in Water for inj. (sterile) 20 ML IVP ONE (21:41)
[2019-07-07 21:47] LABS: Basophils % 0.1 %; Eosinophils % 0.1 %; Hematocrit 21.3 % (35.3-44.9); Hemoglobin 6.6 g/dL (11.5-15.4); Immature Granulocytes % 1.1 % (0-4); Lymphocytes # 0.6 K/mcL (0.6-4.6); Lymphocytes % 6.2 %; Mean Corpuscular Hemoglobin 23.2 pg (28.0-33.3); Mean Corpuscular Volume 74.7 fL (83.0-100.0); Mean Platelet Volume 9.9 fL (9.4-12.4); Monocytes # 0.2 K/mcL (0.0-1.3); Monocytes % 2.7 %; Neutrophils # 8.1 K/mcL (1.6-8.9); Platelet Count 299 K/mcL (140-400); Red Blood Count 2.85 M/mcL (3.82-4.97); Segmented Neutrophils % 89.8 %
[2019-07-07 21:54] LABS: INR 1.7
[2019-07-07] MEDS ORDERED: Isovue-370 500 ML BOTTLE IVP ONE (21:54)
[2019-07-07 21:57] LABS: Activated Partial Thrombo Time 38.4 Seconds (26.0-36.0)
[2019-07-07 22:08] LABS: Alanine Aminotransferase 26 Units/L (7-52); Albumin 2.7 g/dL (3.5-5.7); Albumin/Globulin Ratio 0.6 (1.1-2.2); Alkaline Phosphatase 274 Units/L (34-104); Aspartate Amino Transferase 36 Units/L (13-39); BUN/Creatinine Ratio 15 (6-26); Bilirubin,Direct 0.1 mg/dL (0.0-0.2); Bilirubin,Indirect 0.3 mg/dL (0.0-1.2); Bilirubin,Total 0.4 mg/dL (0.3-1.0); Blood Urea Nitrogen 9 mg/dL (6-20); Calcium 7.9 mg/dL (8.6-10.3); Carbon Dioxide 29 mEq/L (23-29); Chloride 95 mEq/L (98-107); Globulin 4.4 g/dL (2.4-3.5); Glucose 144 mg/dL (70-105); Magnesium 2.3 mg/dL (1.6-2.6); Osmolality,Calculated 281 (280-300); Phosphorous 4.2 mg/dL (2.7-4.5); Potassium 3.5 mEq/L (3.5-5.1); Sodium 135 mEq/L (136-145); Total Protein 7.1 g/dL (6.4-8.9); Troponin I < 0.03 ng/mL (< 0.04); eGFR For African Americans > 60 (> 60); eGFR For Non-African Americans > 60 (> 60)
[2019-07-07] MEDS ORDERED: Calcium Gluconate 1gm/50mL 1 GM/50 ML BAG IVPB ONE (22:10)
[2019-07-07] MEDS ORDERED: *HR* FentaNYL (PF) 100 MCG/2 ML VIAL IVP ONE (23:05)
[2019-07-08] MEDS ORDERED: Morphine Sulfate 2 MG/ML SYRINGE IVP ONE (00:01)
[2019-07-08] MEDS: 0.9 % Sodium Chloride 1,000 ML IVC SCH ×4 (00:29→11:45)
[2019-07-08] MEDS ORDERED: Calcium Gluconate 1gm/50mL 1 GM/50 ML BAG IVPB ONE (00:39)
[2019-07-08] MEDS ORDERED: 0.9 % Sodium Chloride 250 ML ONE ×3 (00:44→09:39)
[2019-07-08] MEDS ORDERED: Ibuprofen 600 MG TABLET PO ONE (01:30)
[2019-07-08] MEDS ORDERED: 0.9 % Sodium Chloride 1,000 ML IVC ONE (01:31)
[2019-07-08] MEDS ORDERED: Ondansetron 4 MG/2 ML VIAL IVP PRN (01:51)
[2019-07-08] MEDS ORDERED: Ipratropium/Albuterol Neb 3 ML IH PRN (01:51)
[2019-07-08 01:52] LABS: Bilirubin,Urine Negative (Negative); Blood,Urine Negative (Negative); Clarity,Urine Clear (Clear); Color,Urine Yellow (Yellow); Glucose,Urine (UA) Normal (Normal); Ketones,Urine Negative (Negative); Leukocyte Esterase,Urine Small (Negative); Nitrite,Urine Positive (Negative); Protein,Urine 30 mg/dL (Neg-Trace); Specific Gravity,Urine > 1.030 (1.010-1.025); Urobilinogen,Urine Normal (Normal)
[2019-07-08 01:54] LABS: Bacteria,Urine Moderate per hpf (None-Few); Hyaline Casts,Urine None Seen per lpf (None-Few); Squamous Epithelial Cell,Urine Many per lpf (None-Few)
[2019-07-08] MEDS ORDERED: Ketorolac 30 MG/ML VIAL IVP PRN (01:54)
[2019-07-08 01:58] LABS: Amphetamine Screen,Urine Positive ng/mL (Cutoff=1000); Barbiturate Screen,Urine Negative ng/mL (Cutoff=200); Benzodiazepines Screen,Urine Negative ng/mL (Cutoff=200); Cannabinoid Screen,Urine Negative ng/mL (Cutoff = 50); Cocaine Screen,Urine Negative ng/mL (Cutoff= 300); Opiate Screen,Urine Positive ng/mL (Cutoff=300); Phencyclidine Screen,Urine Negative ng/mL (Cutoff=25)
[2019-07-08] MEDS: traMADol 50 MG TABLET PO PRN ×2 (03:45→10:18)
[2019-07-08] MEDS ORDERED: hydrOXYzine pamoate 25 MG CAPSULE PO ONE ×2 (04:01→04:26)
--- NOTE | 2019-07-08 05:34 | Internal Med History&Physical ---
Date of Encounter: 07/08/19 Time of Encounter: 05:31 Internal Medicine - H&P: HPI Chief complaint: fever Admitted From: Home Plans for Post Hospital Care: Home History of present illness: Harmony Olmedo is a 33 year old woman with substance use disorder who reports not injecting crystal meth in 1 year and says she has chronic sciatica pains, recently diagnosed diabetes as well as COPD. She says she has been feeling unwell over the past few weeks having fever and chills at home. She also reports developing painful blisters in her mouth as well as diffuse chest pains with a non-productive cough. She went to see an outpatient physician today who referred her to the ER for evaluation. Since being in the ER she has been notably tachycardic and tachypneic. She developed a fever of 102.9F. Blood work revealed a WBC of 9, hemoglobin 6.6, INR 1.[address] and [address] A CT scan of her chest was done which was reviewed by me and revealed multiple cavitary lesions with associated feeding vessels with the largest seen in the right upper lobe which appear consistent with septic emboli. Imaging of her spine was also performed due to her complaints of the lumbago and difficulty walking to rule out an epidural abscess however the only findings of spondylosis and canal narrowing with degenerative disc changes. She was given empiric antibiotics in the emergency room and fluid resuscitation. 2 units of blood were ordered as the patient declined rectal exam for fecal occult blood testing. She did report to me however that she was once told she had bleeding from her esophagus but says she has not noticed any blood in her stool, vomited blood or hemoptysis. Vitals: Reviewed General: Unkempt and emaciated woman lying in bed in notable discomfort. Skin: Pale, warm and diaphoretic and multiple scabbed lesions noted. No splinter hemorrhages. HEENT: Dry mucous membranes. No conjunctival ecchymosis. No conjunctivae pallor. A few blisters noted in her oral cavity at the entry way. Neck: No JVD. No carotid bruits. No palpable thyroid. Chest: Diminished thoracic expansion. No wheezes, rales or rhonchi.. Heart: Tachycardic with a hyperdynamic precordium. Abdomen: Non-distended, soft and non-tender to palpation. No peritoneal reaction. Extremities: No clubbing, cyanosis or edema. No calf tenderness. Normal distal pulses. Neurological: Awake, alert and oriented to person, place and time. No focal deficits. Psych: Affect appropriate. Assessment/Plan 1. Sepsis syndrome: As evidenced by her fever, tachycardia and tachypnea in the setting of a patient with substance use disorder who is seen to have pulmonary septic emboli on CT imaging. These findings are highly suspicious of an infective endocarditis process and therefore likely bacteremic. Multiple sets of blood cultures will be obtained to increase the yield. Start empiric therapy with high-dose vancomycin to be dosed by pharmacy and ceftriaxone 2 g every 24 hours. Transthoracic echo has been ordered to evaluate for valvular lesions. 2. Anemia: I advised on the need to for GI bleeding and therefore will need a stool sample for occult blood testing. I ordered an iron profile and ferritin as well. 2 units of blood were ordered from the emergency room and will be administered overnight. Keep nothing by mouth for now and start PPI. 3. Substance use disorder: We will check a hepatitis viral panel and HIV testing will be offered as well. 5 minutes were spent counseling and educating the patient on this habit. disability services coordinator and resources were made available. 4. Lumbago: Seemingly secondary to sciatica she describes the pain going down her left gluteus and posterior aspect of her thigh. No collections noted on CT scan fortunately. Pain control as needed and she may benefit from physical therapy. Past Med Surg Social Fam HX - Past Medical History Medical history: COPD, diabetes, other Additional medical history: sciatica Psychiatric history: no psych history - Past Surgical History Surgical History: no surgical history - Social History Smoking Status: Current every day smoker Smokeless Tobacco Status: No Alcohol use: none Drug use: cocaine, opiates, IV Drug Use, prescription drug abuse Internal Medicine - H&P: Meds Omeprazole [PriLOSEC] 20 mg PO DAILY@0730 #30 capsule. 03/13/19 [Rx] Allergy/AdvReac Type Severity Reaction Status Date / Time No Known Allergies Allergy Verified 07/07/19 20:27 All Systems PM: A 10-system review of systems was performed and is negative for pertinent findings except as documented above in the HPI. Family history reviewed and found non-contributory. - Constitutional Vitals: Temp Pulse Resp BP Pulse Ox 102.9 F H 130 21 102/53 98 07/08/19 00:52 07/08/19 01:55 07/08/19 01:55 07/08/19 01:55 07/08/19 01:55 Exam: . Internal Med - H&P Results - Labs CBC & Chem 7: 07/07/19 21:31 07/07/19 21:31 Labs: Short CBC 07/07/19 Range/Units 21:31 WBC 9.0 (4.3-11.1) K/mcL Hgb 6.6 L (11.5-15.4) g/dL Hct 21.3 L (35.3-44.9) % Plt Count 299 (140-400) K/mcL Neutrophils # 8.1 (1.6-8.9) K/mcL BMP 07/07/19 21:31 Sodium 135 L Potassium 3.5 Chloride 95 L Carbon Dioxide 29 BUN 9 Creatinine 0.60 Glucose 144 H Calcium 7.9 L Cardiac Enzymes 07/07/19 Range/Units 21:31 Troponin I < 0.03 (< 0.04) ng/mL Liver Function 07/07/19 Range/Units 21:31 Total Bilirubin 0.4 (0.3-1.0) mg/dL Direct Bilirubin 0.1 (0.0-0.2) mg/dL AST 36 (13-39) Units/L ALT 26 (7-52) Units/L Alkaline Phosphatase 274 H (34-104) Units/L Albumin 2.7 L (3.5-5.7) g/dL Urine 07/08/19 Range/Units 01:40 Urine Color Yellow (Yellow) Urine Clarity Clear (Clear) Urine pH 6.0 (5.0-8.0) pH Units Ur Specific Spiro > 1.030 H (1.010-1.025) Urine Protein 30 H (Neg-Trace) mg/dL Urine Glucose (UA) Normal (Normal) mg/dL - Impressions ITS Impressions Chest X-Ray 07/07/19 20:58 IMPRESSION: Diffuse bilateral heterogeneous opacities may represent an infectious/inflammatory process or pulmonary edema. Ill-defined right upper lobe nodular opacity with central lucency raises concern for cavitary lesion. Recommend short-term follow-up chest CT for further evaluation. D/ / Satish Muñiz / Satish Muñiz Interpreting Provider: Satish Sessions Cervical Spine MRI 07/07/19 21:07 IMPRESSION: C5-6 disc protrusion as described with resulting moderate central canal stenosis. No evidence of osteomyelitis in the cervical spine. D/ / Petar Fraser MD / Petar Fraser MD Interpreting Provider: Petar Fraser MD Lumbar Spine MRI 07/07/19 21:07 IMPRESSION: No significant abnormality of thoracic or lumbar spine. D/ / Petar Fraser MD / Petar Fraser MD Interpreting Provider: Petar Fraser MD Thoracic Spine MRI 07/07/19 21:07 IMPRESSION: No significant abnormality of thoracic or lumbar spine. D/ / Petar Fraser MD / Petar Fraser MD Interpreting Provider: Petar Fraser MD Chest CTA 07/08/19 00:01 IMPRESSION: Limited evaluation of the subsegmental pulmonary arterial branches. No central or segmental pulmonary thromboembolism. That said, there is evidence of septic emboli, with multiple cavitary lesions with associated feeding vessels, largest seen within the right upper lobe. These lesions must be followed to resolution to ensure that there is no underlying neoplasm. Mediastinal lymphadenopathy, which is presumably reactive. That should be followed up as well. D/ / Andrew Watson MD / Andrew Watson MD Interpreting Provider: Andrew Watson MD - Time Spent With Patient Total time spent is greater than 50% in coordination of care (as documented) at patient's floor/unit and/or counseling patient:
[2019-07-08] MEDS ORDERED: *HR* Heparin 5,000 UNIT/ML VIAL SQ SCH (06:00)
[2019-07-08 06:10] LABS: Red Cell Distribution Width 16.3 % (11.5-14.5)
[2019-07-08 06:12] LABS: Basophils % 0.1 %; Eosinophils % 0.1 %; Hematocrit 16.7 % (35.3-44.9); Immature Granulocytes % 0.9 % (0-4); Lymphocytes # 0.5 K/mcL (0.6-4.6); Lymphocytes % 7.6 %; Mean Corpuscular HGB Conc 30.5 g/dL (31.6-35.5); Mean Corpuscular Hemoglobin 22.8 pg (28.0-33.3); Mean Corpuscular Volume 74.6 fL (83.0-100.0); Monocytes # 0.4 K/mcL (0.0-1.3); Monocytes % 5.2 %; Platelet Count 235 K/mcL (140-400); Red Blood Count 2.24 M/mcL (3.82-4.97); Segmented Neutrophils % 86.1 %; White Blood Count 6.7 K/mcL (4.3-11.1)
[2019-07-08 06:13] LABS: INR 1.7; Prothrombin Time 18.8 Seconds (9.4-12.1)
[2019-07-08 06:31] LABS: Neutrophils # 5.8 K/mcL (1.6-8.9)
[2019-07-08 06:32] LABS: Hemoglobin 5.1 g/dL (11.5-15.4)
[2019-07-08 06:39] LABS: BUN/Creatinine Ratio 15 (6-26); Blood Urea Nitrogen 9 mg/dL (6-20); Calcium 7.1 mg/dL (8.6-10.3); Carbon Dioxide 25 mEq/L (23-29); Chloride 101 mEq/L (98-107); Glucose 109 mg/dL (70-105); Iron < 10 mcg/dL (50-170); Magnesium 1.8 mg/dL (1.6-2.6); Osmolality,Calculated 277 (280-300); Potassium 3.2 mEq/L (3.5-5.1); Sodium 134 mEq/L (136-145); Transferrin 128 mg/dL (203-362); eGFR For African Americans > 60 (> 60); eGFR For Non-African Americans > 60 (> 60)
--- NOTE | 2019-07-08 06:39 | Event Note ---
Date of Encounter: 07/08/19 Time of Encounter: 06:37 Note: There was a delay in obtaining the patient's blood products ordered for her anemic state after the EMR went down for 4 hours and the blood bank was unable to coordinate with the nursing staff as to the readiness of the units. She will be starting her blood transfusions now. She remained adamant to not allow a VASILE to examine for blood and we are still awaiting a spontaneous stool sample for testing, noting the ongoing drop in her Hgb.
[2019-07-08 06:45] LABS: Ferritin 98 ng/mL (10-120)
[2019-07-08 07:45] LABS: Hepatitis B Surface Antigen Nonreactive (Nonreactive)
[2019-07-08 08:03] LABS: Anisocytosis 1+ (Not Present); Hypochromasia Present (Not Present); Platelet Estimate Normal (Normal)
[2019-07-08 08:14] LABS: Hepatitis B Core IgM Nonreactive (Nonreactive)
[2019-07-08 08:15] LABS: Hepatitis A Antibody IgM Nonreactive (Nonreactive); Hepatitis C Virus Antibody Nonreactive (Nonreactive)
[2019-07-08] MEDS: cefTRIAXone 2,000 MG in Water for inj. (sterile) 20 ML IVPB SCH (09:51)
[2019-07-08 10:26] LABS: Enterococcus by PCR Not Detected (Not Detect); mecA Methicillin-Resist Gene Not Detected (Not Detect)
[2019-07-08 10:27] LABS: Acinetobacter baumannii by PCR Not Detected (Not Detect); Candida albicans by PCR Not Detected (Not Detect); Candida glabrata by PCR Not Detected (Not Detect); Candida krusei by PCR Not Detected (Not Detect); Candida parapsilosis by PCR Not Detected (Not Detect); Candida tropicalis by PCR Not Detected (Not Detect); Enterobacter cloacae Cmplx PCR Not Detected (Not Detect); Enterobacteriaceae by PCR Not Detected (Not Detect); Escherichia coli by PCR Not Detected (Not Detect); Klebsiella oxytoca by PCR Not Detected (Not Detect); Klebsiella pneumoniae by PCR Not Detected (Not Detect); Proteus by PCR Not Detected (Not Detect); Pseudomonas aeruginosa by PCR Not Detected (Not Detect); Serratia marcescens by PCR Not Detected (Not Detect); Staphylococcus aureus by PCR DETECTED (Not Detect); Streptococcus agalactiae(B)PCR Not Detected (Not Detect); Streptococcus by PCR Not Detected (Not Detect); Streptococcus pneumoniae PCR Not Detected (Not Detect); Streptococcus pyogenes (A) PCR Not Detected (Not Detect)
[2019-07-08] MEDS: *HR* OxyCODONE Immed Rel 5 MG TABLET PO PRN ×3 (12:36→21:47)
--- NOTE | 2019-07-08 13:11 | Internal Med Progress Note ---
Hospitalist Progress Note - Encounter Date of Encounter: 07/08/19 Time of Encounter: 11:45 - Subjective Interval History: Mrs. Olmedo does not appear to be interested in discussing any history regarding her acute blood loss anemia she appears to provide erroneous answers to questions asked which were being contradicted by her boyfriend at the bedside. She denies heavy menses but he stated she does have heavy menses. Patient is demanding Suboxone, fentanyl and morphine discussed treatment plan with the patient trying to emphasize that she is critically ill and needs help but patient does not appear to have an interest in acute blood loss anemia or positive blood cultures. She is threatening to leave AMA was strongly advised and encouraged not to leave AGAINST MEDICAL ADVICE. Unable to obtain review of system patient not interested Reviewed current in hospital medications with modifications see orders Reviewed Routine labs - Exam Vitals: Temp Pulse Resp BP Pulse Ox 97.3 F L 91 16 100/66 100 07/08/19 12:44 07/08/19 12:44 07/08/19 12:44 07/08/19 12:44 07/08/19 12:44 Exam: GEN: Mildly distressed appears somnolent, uncooperative SKIN: Pale, slightly diaphoretic warm acyanotic not jaundice HEART: RRR with tachycardic, 2/6 systolic murmur appreciated LUNGS: Diminished due to patient's poor respiratory effort no wheeze or crackles, overall non labored ABDOMEN; Soft, non tender or distended, BS x 4 normactive EXT: No LE edema, Pedal pulses 1+, radial pulses 2+ track gilmore noted on the right upper extremity PSYCH: Mood euphoric and affect labile - Assessment and Plan (1) Acute on chronic anemia Current Visit: Yes Status: Acute Assessment and Plan: Patient presents with critical lab value of hemoglobin of 5.1, she has been ordered 2 units of packed red blood cells upon review of prior labs anemia dates back to 2015 with numbers ranging from 8.5-11.2 hemoglobin on admission was 6. 6 repeat hemoglobin in the morning was 5.1 patient was reluctant to provide stool sample. This morning during the encounter she is not interested in providing any history regarding possible causes for her anemia she seems to be more interested in demanding for opioids and Suboxone. She is threatening to leave AMA. No obvious hematoma noted on exam, does not appear jaundiced to suggest hemolytic anemia LFTs are unremarkable with no normal direct and total bilirubin, urinalysis on admission is negative for blood. Although she denied heavy menses boyfriend who was at the bedside reports having heavy menses. Overall she is stable we will trend daily CBC, ferritin is within normal limits, check B12 folate is pending. She did deny any history of Eastern on Mediterranean origin as such thalassemias are low on differential. (2) Endocarditis Current Visit: Yes Status: Acute Assessment and Plan: 2 out of 2 positive blood cultures for gram-positive cocci her history of polysubstance use suspect MRSA, septic emboli noted on CTA chest on vancomycin and ceftriaxone will consult pharmacy to dose vancomycin appreciated input echocardiogram pending (3) Sepsis Current Visit: Yes Status: Acute (4) Cervical stenosis of spinal canal Current Visit: Yes Status: Acute Assessment and Plan: Noted on cervical spine MRI- C5-6 disc protrusion as described with resulting moderate central canal stenosis. No evidence of osteomyelitis in the cervical spine. She will need outpatient follow-up with neuro surgeon (5) Polysubstance abuse Current Visit: Yes Status: Acute Assessment and Plan: Patient is demanding Suboxone fentanyl and morphine otherwise threatening to leave AMA, discussed with patient that we could manage her pain symptoms with oxycodone and this would help her not withdraw but she seems to be not interested in oxycodone polysubstance abuse, complicated treatment for her endocarditis as an outpatient. Of note urine toxicology screen was positive for opioids and amphetamines (6) Hyponatremia Current Visit: Yes Status: Acute Assessment and Plan: Mild sodium 134 today Likely due to poor oral intake she appears euvolemic repeat sodium tomorrow (7) Hypokalemia Current Visit: Yes Status: Acute Assessment and Plan: supplement orally (8) Hypocalcemia Current Visit: Yes Status: Acute Assessment and Plan: Corrected calcium 8.14 we will check PTH and vitamin D will place a calcium supplement orally she received 1 g of calcium gluconate at ED (9) Cavitary lesion of lung Current Visit: Yes Status: Acute Assessment and Plan: In the setting of septic emboli from endocarditis will need repeat CT of the chest in 6 months to document resolution although given his tobacco use malignancies is of concern (10) Tobacco abuse Current Visit: Yes Status: Acute Assessment and Plan: Encourage sensation (11) UTI (urinary tract infection) Current Visit: Yes Status: Acute Assessment and Plan: UA suggestive for UTI cultures pending patient already on ceftriaxone for endocarditis DVT Prophylaxis: Heparin subcutaneous - Time Spent with Patient Total time spent is greater than 50% in coordination of care (as documented) at patient's floor/unit and/or counseling patient: Internal Medicine: Result - Labs CBC & Chem 7: 07/08/19 02:18 07/08/19 02:18 Labs: Short CBC 07/07/19 07/08/19 Range/Units 21:31 02:18 WBC 9.0 6.7 (4.3-11.1) K/mcL Hgb 6.6 L 5.1 L* D (11.5-15.4) g/dL Hct 21.3 L 16.7 L (35.3-44.9) % Plt Count 299 235 (140-400) K/mcL Neutrophils # 8.1 5.8 (1.6-8.9) K/mcL BMP 07/07/19 07/08/19 21:31 02:18 Sodium 135 L 134 L Potassium 3.5 3.2 L Chloride 95 L 101 Carbon Dioxide 29 25 BUN 9 9 Creatinine 0.60 0.59 L Glucose 144 H 109 H Calcium 7.9 L 7.1 L Cardiac Enzymes 07/07/19 Range/Units 21:31 Troponin I < 0.03 (< 0.04) ng/mL Liver Function 07/07/19 Range/Units 21:31 Total Bilirubin 0.4 (0.3-1.0) mg/dL Direct Bilirubin 0.1 (0.0-0.2) mg/dL AST 36 (13-39) Units/L ALT 26 (7-52) Units/L Alkaline Phosphatase 274 H (34-104) Units/L Albumin 2.7 L (3.5-5.7) g/dL Urine 07/08/19 Range/Units 01:40 Urine Color Yellow (Yellow) Urine Clarity Clear (Clear) Urine pH 6.0 (5.0-8.0) pH Units Ur Specific Drew > 1.030 H (1.010-1.025) Urine Protein 30 H (Neg-Trace) mg/dL Urine Glucose (UA) Normal (Normal) mg/dL - ABG Interpretation ABG results: PT/INR, D-dimer PT 18.8 Seconds (9.4-12.1) H 07/08/19 02:18 - Impressions Impressions Chest X-Ray 07/07/19 20:58 IMPRESSION: Diffuse bilateral heterogeneous opacities may represent an infectious/inflammatory process or pulmonary edema. Ill-defined right upper lobe nodular opacity with central lucency raises concern for cavitary lesion. Recommend short-term follow-up chest CT for further evaluation. D/ / Satish Sessions / Satish Sessions Interpreting Provider: Satish Sessions Cervical Spine MRI 07/07/19 21:07 IMPRESSION: C5-6 disc protrusion as described with resulting moderate central canal stenosis. No evidence of osteomyelitis in the cervical spine. D/ / Petar Fraser MD / Petar Fraser MD Interpreting Provider: Petar Fraser MD Lumbar Spine MRI 07/07/19 21:07 IMPRESSION: No significant abnormality of thoracic or lumbar spine. D/ / Petar Fraser MD / Petar Fraser MD Interpreting Provider: Petar Fraser MD Thoracic Spine MRI 07/07/19 21:07 IMPRESSION: No significant abnormality of thoracic or lumbar spine. D/ / Petar Fraser MD / Petar Fraser MD Interpreting Provider: Petar Fraser MD Chest CTA 07/08/19 00:01 IMPRESSION: Limited evaluation of the subsegmental pulmonary arterial branches. No central or segmental pulmonary thromboembolism. That said, there is evidence of septic emboli, with multiple cavitary lesions with associated feeding vessels, largest seen within the right upper lobe. These lesions must be followed to resolution to ensure that there is no underlying neoplasm. Mediastinal lymphadenopathy, which is presumably reactive. That should be followed up as well. D/ / Andrew Watson MD / Andrew Watson MD Interpreting Provider: Andrew Watson MD Consult Discharge Plan - Plan Referrals: Min Pace MD [Primary Care Provider] - (2) Endocarditis Qualifiers: Endocarditis type: infective Infective endocarditis organism: bacterial Chronicity: acute Qualified Code(s): I33.0 - Acute and subacute infective endocarditis (3) Sepsis Qualifiers: Sepsis type: sepsis due to unspecified organism Sepsis acute organ dysfunction status: with acute organ dysfunction Severe sepsis acute organ dysfunction type: acute respiratory failure Acute respiratory failure type: unspecified Severe sepsis shock status: without septic shock Qualified Code(s): A41.9 - Sepsis, unspecified organism; R65.20 - Severe sepsis without septic shock; J96.00 - Acute respiratory failure, unspecified whether with hypoxia or hypercapnia (11) UTI (urinary tract infection) Qualifiers: Urinary tract infection type: site unspecified Hematuria presence: with hematuria Qualified Code(s): N39.0 - Urinary tract infection, site not specified; R31.9 - Hematuria, unspecified
[2019-07-08 15:57] LABS: Ferritin 126 ng/mL (10-120); Iron < 10 mcg/dL (50-170); Transferrin 115 mg/dL (203-362)
[2019-07-08 17:07] LABS: Hematocrit 26.9 % (35.3-44.9)
[2019-07-08 17:10] LABS: Hemoglobin 8.9 g/dL (11.5-15.4)
[2019-07-08] MEDS ORDERED: Acetaminophen IV 500 MG/50 ML INFUS..BTL IVPB ONE (23:14)
[2019-07-09] MEDS ORDERED: tiZANidine 4 MG TABLET PO ONE (00:30)
[2019-07-09] MEDS: *HR* OxyCODONE Immed Rel 5 MG TABLET PO PRN ×5 (01:48→21:15)
[2019-07-09] MEDS: cefTRIAXone 2,000 MG in Water for inj. (sterile) 20 ML IVPB SCH (08:10)
[2019-07-09] MEDS: Acetaminophen 325 MG TABLET PO PRN ×2 (08:11→21:19)
[2019-07-09] MEDS ORDERED: *HR* HYDROmorphone (PF) 1 MG/ML SYRINGE IVP ONE (08:59)
[2019-07-09 09:47] LABS: Hematocrit 23.7 % (35.3-44.9); Hemoglobin 7.6 g/dL (11.5-15.4); Mean Corpuscular HGB Conc 32.1 g/dL (31.6-35.5); Mean Corpuscular Hemoglobin 24.8 pg (28.0-33.3); Mean Corpuscular Volume 77.5 fL (83.0-100.0); Mean Platelet Volume 9.8 fL (9.4-12.4); Platelet Count 343 K/mcL (140-400); Red Blood Count 3.06 M/mcL (3.82-4.97); Red Cell Distribution Width 16.8 % (11.5-14.5)
[2019-07-09 09:49] LABS: White Blood Count 10.3 K/mcL (4.3-11.1)
[2019-07-09 10:31] LABS: % Iron Saturation 0 % (15-50); BUN/Creatinine Ratio 12 (6-26); Blood Urea Nitrogen 6 mg/dL (6-20); Calcium 7.2 mg/dL (8.6-10.3); Carbon Dioxide 24 mEq/L (23-29); Chloride 107 mEq/L (98-107); Ferritin 123 ng/mL (10-120); Glucose 155 mg/dL (70-105); Iron 0 mcg/dL (50-170); Osmolality,Calculated 287 (280-300); Potassium 4.1 mEq/L (3.5-5.1); Sodium 138 mEq/L (136-145); Transferrin 115 mg/dL (203-362); eGFR For African Americans > 60 (> 60); eGFR For Non-African Americans > 60 (> 60)
[2019-07-09 10:31] LABS: Folate 7.9 ng/mL (3.0-16.0)
--- NOTE | 2019-07-09 16:59 | Internal Med Progress Note ---
Hospitalist Progress Note - Encounter Date of Encounter: 07/09/19 Time of Encounter: 14:45 - Subjective Interval History: Ms. Olmedo continues to complain of intractable pain updated her critical illness-high blood cultures 4 urine culture all grew staph aureus. Discussed with patient that the oxycodone given to her every 4 hours should suffice to ad dress her withdrawal and also alleviate the pain and that the goal is not totally eliminate the pain since the pain is likely from septic emboli and that such doses could be fatal due to increased risk for respiratory drive suppression. Earlier today patient received 1 dose of Dilaudid upon request from the nurse due to her assessment of the patient's in intractable pain as such the patient is requesting multiple doses of Dilaudid. Upon further deliberation and education of the patient she is agreeable to lidocaine patches for her back pain. She was strongly encouraged and advised not to leave AMA. Transthoracic echocardiogram is suggestive of tricuspid valve vegetation GEN: reports fever, chills or malaise HEENT: Denies headache blurriness, or dysphagia RESP: Admits to SOB or cough CV: Denies chest pain or palpitations GI: Denies Nausea, vomiting, diarrhea or constipation Reviewed current in hospital medications with modifications see orders Reviewed Routine labs - Exam Vitals: Temp Pulse Resp BP Pulse Ox 97.8 F 87 16 103/70 99 07/09/19 16:25 07/09/19 16:25 07/09/19 16:25 07/09/19 16:25 07/09/19 16:25 Exam: GEN: Mildly distressed but more awake alert and conversant today SKIN: Pale, warm acyanotic not jaundice HEART: RRR with tachycardic, 2/6 systolic murmur appreciated LUNGS: Diminished due to patient's poor respiratory effort no wheeze or crackles, overall non labored ABDOMEN; Soft, non tender or distended, BS x 4 normactive EXT: No LE edema, Pedal pulses 1+, radial pulses 2+ track gilmore noted on the right upper extremity PSYCH: Mood euphoric and affect labile - Assessment and Plan (1) Endocarditis Current Visit: Yes Status: Acute Assessment and Plan: 4 out of 4 positive blood cultures for gram-positive cocci grew staph aureus sensitivities still pending. Given her history of IV drug use if she grows MSSA options would be either ECF for continued IV antibiotics which most likely esteban ent would not be compliant, or Cipro with rifampin for 6 weeks orally if okay with the ID specialist. septic emboli noted on CTA chest on vancomycin and ceftriaxone will consult pharmacy to dose vancomycin appreciated input echocardiogram pending (2) Sepsis Current Visit: Yes Status: Acute Assessment and Plan: 4/4 blood cultures positive for staph aureus, urine culture also positive for staph aureus is on vancomycin and ceftriaxone, tricuspid valve vegetation noted likely endocarditis related sepsis (3) Acute on chronic anemia Current Visit: Yes Status: Acute Assessment and Plan: Hemoglobin improved from 5.1-8.9 and is post 2 units blood transfusion and now 7.6 she is still unable to provide any stool sample. Patient presents with critical lab value of hemoglobin of 5.1, she has been ordered 2 units of packed red blood cells upon review of prior labs anemia dates back to 2014 with numbers ranging from 8.5-11.2 hemoglobin on admission was 6. 6 repeat hemoglobin in the morning was 5.1 patient was reluctant to provide stool sample. This morning during the encounter she is not interested in providing any history regarding possible causes for her anemia she seems to be more interested in demanding for opioids and Suboxone. She is threatening to leave AMA. No obvious hematoma noted on exam, does not appear jaundiced to suggest hemolytic anemia LFTs are unremarkable with no normal direct and total bilirubin, urinalysis on admission is negative for blood. Although she denied heavy menses boyfriend who was at the bedside reports having heavy menses. Overall she is stable we will trend daily CBC, ferritin is within normal limits, check B12 folate is pending. She did deny any history of Eastern on Mediterranean origin as such thalassemias are low on differential. (4) UTI (urinary tract infection) Current Visit: Yes Status: Acute Assessment and Plan: UA suggestive for UTI cultures revealed staph aureus sensitivity pending patient already on ceftriaxone for endocarditis (5) Cervical stenosis of spinal canal Current Visit: Yes Status: Acute Assessment and Plan: Noted on cervical spine MRI- C5-6 disc protrusion as described with resulting moderate central canal stenosis. No evidence of osteomyelitis in the cervical spine. She will need outpatient follow-up with neuro surgeon (6) Polysubstance abuse Current Visit: Yes Status: Acute Assessment and Plan: Patient is demanding Suboxone fentanyl and morphine otherwise threatening to leave AMA, discussed with patient that we could manage her pain symptoms with oxycodone and this would help her not withdraw but she seems to be not interested in oxycodone polysubstance abuse, complicated treatment for her endocarditis as an outpatient. Of note urine toxicology screen was positive for opioids and amphetamines (7) Hyponatremia Current Visit: Yes Status: Acute Assessment and Plan: Mild sodium 134 today Likely due to poor oral intake she appears euvolemic repeat sodium tomorrow 138, resolved (8) Hypokalemia Current Visit: Yes Status: Acute Assessment and Plan: supplement orally, resolved potassium 4.1 (9) Hypocalcemia Current Visit: Yes Status: Acute Assessment and Plan: Corrected calcium 8.14 we will check PTH and vitamin D will place a calcium supplement orally she received 1 g of calcium gluconate at ED, patient has vitamin D deficiency PTH is unremarkable supplement orally with calcium and treat her vitamin D for deficiency (10) Cavitary lesion of lung Current Visit: Yes Status: Acute Assessment and Plan: In the setting of septic emboli from endocarditis will need repeat CT of the chest in 6 months to document resolution although given his tobacco use malignancies is of concern (11) Tobacco abuse Current Visit: Yes Status: Acute Assessment and Plan: Encourage sensation (12) Vitamin D deficiency Current Visit: Yes Status: Acute Assessment and Plan: Vitamin D 5,000 units started, vitamin D level of 16 (13) Chronic back pain Current Visit: Yes Status: Acute Assessment and Plan: Patient complaining of acute on chronic low back pain, of note she is already on oxycodone, after much deliberation and education she is agreeable to lidocaine patches DVT Prophylaxis: Heparin subcutaneous - Time Spent with Patient Total time spent is greater than 50% in coordination of care (as documented) at patient's floor/unit and/or counseling patient: Internal Medicine: Result - Labs CBC & Chem 7: 07/09/19 09:23 07/09/19 09:23 Labs: Short CBC 07/08/19 07/09/19 Range/Units 16:27 09:23 WBC 10.3 D (4.3-11.1) K/mcL Hgb 8.9 L D 7.6 L (11.5-15.4) g/dL Hct 26.9 L 23.7 L (35.3-44.9) % Plt Count 343 (140-400) K/mcL BMP 07/09/19 09:23 Sodium 138 Potassium 4.1 Chloride 107 Carbon Dioxide 24 BUN 6 Creatinine 0.49 L Glucose 155 H Calcium 7.2 L - ABG Interpretation ABG results: PT/INR, D-dimer PT 18.8 Seconds (9.4-12.1) H 07/08/19 02:18 - Impressions Impressions Echocardiogram 07/09/19 11:19 Impressions: LVEF 60-65%. Normal left ventricular diastolic function. Normal right ventricular structure and function. Mild mitral regurgitation. Round, mobile echodensity approximately 1.0x1.0cm attached to the septal leaflet of the tricuspid valve may represent vegetation. Recommend correlate clinically. Mild-moderate tricuspid regurgitation. No pulmonary hypertension. Abnormal findings communicated to ordering provider. Left Ventricular Wall Motion: Rest Echo Findings All wall segments showed normal motion. Findings: Study Quality * Technically adequate exam. ECG Findings * Normal sinus rhythm. Left Ventricle * LVEF 60-65%. * Normal LV chamber size, wall thickness and function. * Normal left ventricular diastolic function. Right Ventricle * Normal right ventricular structure and function. Left Atrium * Normal left atrial size. Right Atrium * Normal right atrial size. Aortic Valve * Aortic valve not well visualized. * No aortic stenosis. * Trace aortic regurgitation. Mitral Valve * No mitral stenosis. * Normal mitral valve structure. * Mild mitral regurgitation. Tricuspid Valve * Round, mobile echodensity approximately 1.0x1.0cm attached to the septal leaflet of the tricuspid valve. * Mild-moderate tricuspid regurgitation. * Estimated RA pressure is 3 mmHg. * Estimated RVSP is 30 mmHg. * No pulmonary hypertension. Pulmonic Valve * Pulmonic valve is not well visualized. * No pulmonic stenosis. * No pulmonic regurgitation. Pulmonary Artery * Pulmonary artery not well visualized. Aorta * Normally sized aortic root. Pericardium * There is no pericardial effusion present. Interatrial Septum * No evidence of PFO by color Doppler. IVC * Normal IVC dimensions and inspiratory collapse. Consult Discharge Plan - Plan Referrals: Min Pace MD [Primary Care Provider] - (1) Endocarditis Qualifiers: Endocarditis type: infective Infective endocarditis organism: bacterial Chronicity: acute Qualified Code(s): I33.0 - Acute and subacute infective endocarditis (2) Sepsis Qualifiers: Sepsis type: sepsis due to unspecified organism Sepsis acute organ dysfunction status: with acute organ dysfunction Severe sepsis acute organ dysfunction type: acute respiratory failure Acute respiratory failure type: unspecified Severe sepsis shock status: without septic shock Qualified Code(s): A41.9 - Sepsis, unspecified organism; R65.20 - Severe sepsis without septic shock; J96.00 - Acute respiratory failure, unspecified whether with hypoxia or hypercapnia (4) UTI (urinary tract infection) Qualifiers: Urinary tract infection type: site unspecified Hematuria presence: with hematuria Qualified Code(s): N39.0 - Urinary tract infection, site not specified; R31.9 - Hematuria, unspecified
[2019-07-09] MEDS: Cholecalciferol (D-3) 1,000 UNIT (25MCG) TABLET PO SCH (17:09)
[2019-07-09 17:39] LABS: Estimated Average Glucose 151 mg/dl
[2019-07-09 19:16] LABS: Hepatitis B Surface Antigen Nonreactive (Nonreactive)
[2019-07-09 19:45] LABS: HIV-1&2 Antibody & p24 Ag Nonreactive (Nonreactive); Hepatitis C Virus Antibody Nonreactive (Nonreactive)
[2019-07-09] MEDS: *HR* Heparin 5,000 UNIT/ML VIAL SQ SCH (21:15)
[2019-07-10] MEDS: *HR* OxyCODONE Immed Rel 5 MG TABLET PO PRN ×3 (02:08→18:07)
[2019-07-10] MEDS: *HR* Heparin 5,000 UNIT/ML VIAL SQ SCH ×3 (05:30→21:18)
[2019-07-10] MEDS ORDERED: *HR* Dextrose 50 % in Water (Syg) 50 ML SYRINGE IVP PRN (07:43)
[2019-07-10] MEDS ORDERED: Dextrose Gel 15 GM/37.5 ML TUBE PO PRN ×2 (07:43)
[2019-07-10] MEDS ORDERED: D5% in Water 1,000 ML IVC PRN (07:43)
[2019-07-10 08:14] LABS: Hematocrit 24.6 % (35.3-44.9); Hemoglobin 7.9 g/dL (11.5-15.4); Mean Corpuscular HGB Conc 32.1 g/dL (31.6-35.5); Mean Corpuscular Hemoglobin 24.8 pg (28.0-33.3); Mean Corpuscular Volume 77.4 fL (83.0-100.0); Mean Platelet Volume 9.8 fL (9.4-12.4); Platelet Count 405 K/mcL (140-400); Red Blood Count 3.18 M/mcL (3.82-4.97); Red Cell Distribution Width 17.2 % (11.5-14.5); White Blood Count 9.4 K/mcL (4.3-11.1)
[2019-07-10 08:29] LABS: BUN/Creatinine Ratio 11 (6-26); Blood Urea Nitrogen 5 mg/dL (6-20); Calcium 7.9 mg/dL (8.6-10.3); Carbon Dioxide 25 mEq/L (23-29); Chloride 105 mEq/L (98-107); Glucose 103 mg/dL (70-105); Magnesium 1.9 mg/dL (1.6-2.6); Osmolality,Calculated 276 (280-300); Potassium 5.2 mEq/L (3.5-5.1); Sodium 134 mEq/L (136-145); eGFR For African Americans > 60 (> 60); eGFR For Non-African Americans > 60 (> 60)
[2019-07-10] MEDS ORDERED: *HR* HYDROmorphone 2 MG/ML SYRINGE IVP ONE (09:21)
[2019-07-10] MEDS: Insulin LISPRO 300 UNITS/3 ML VIAL SQ SCH ×3 (09:51→18:07)
[2019-07-10] MEDS: cefTRIAXone 2,000 MG in Water for inj. (sterile) 20 ML IVPB SCH (09:53)
--- NOTE | 2019-07-10 10:23 | Gastroenterology Consult Note ---
<Jerri Navas - Last Filed: 07/10/19 10:16> Date of Encounter: 07/10/19 Time of Encounter: 09:15 - Assessment and plan (1) Anemia Current Visit: No Status: Acute Assessment and plan: 33 year old female who presented septic emboli. She has tricuspid vegetation. She has longstanding anemia, currently worse. She has been transfused. Due to tricuspid vegetation would recommend waiting on EGD and colonoscopy as she would be at high risk for further embolic events if heparin were stopped. Iv iron, transfuse as needed and monitor H&H. Will do EGD and colonoscopy when cleared by pulmonology and cardiology. Qualifiers: Anemia type: unspecified type Qualified Code(s): D64.9 - Anemia, unspecified (2) Septic embolism Current Visit: Yes Status: Acute (3) Endocarditis Current Visit: Yes Status: Acute Qualifiers: Endocarditis type: infective Infective endocarditis organism: bacterial Chronicity: acute Qualified Code(s): I33.0 - Acute and subacute infective endocarditis - Time Spent With Patient Total time spent is greater than 50% in coordination of care (as documented) at patient's floor/unit and/or counseling patient: GI History of Present Illness - Data of Consult Patient: known to practice within the last 3 years Consult date: 07/10/19 Requesting Physician: Harsha Snyder - Consult Narrative Reason for consult: anemia History of present illness: Ms. Olmedo is a 33 year old female with past medical history of COPD, diabetes, sciatica, and IV drug use. She presented with two-week history of fever and chills, painful blisters in her mouth, and chest pain. She had a fever 102.9. CT of the chest showed multiple cavitary lesions. Cardiac echo showed tricuspid vegitation. She is being treated with antibiotics for septic emboli. Hemoglobin was noted to be 5.1 on admission, she received 2 units packed red blood cells and hemoglobin is now 7.6. She does have a history of anemia dating back to 2015. Iron levels were 0 iron saturation 0 Adame and 123. Blood cu ltures were positive for staph aureus. She refused rectal exam for fecal occult blood testing. She reports a history of "bleeding from her esophagus' but denies seeing any blood in her stools vomiting blood or hemoptysis. She was seen by GI in February 2019 following a drug overdose. Hemoglobin dropped to 8.5 at that time but was stable. She was advised an EGD as an outpatient but did not follow-up. Procedures: None Anticoagulants: Heparin subq NSAIDs: None Past Med Surg Social Fam HX - Past Medical History Medical history: COPD, diabetes, other Additional medical history: sciatica Psychiatric history: no psych history - Past Surgical History Surgical History: no surgical history - Social History Smoking Status: Former smoker Smokeless Tobacco Status: No Alcohol use: none Drug use: cocaine, opiates, IV Drug Use, prescription drug abuse Review of Systems: GI: as per LIME GENERAL: see hpi EYES: denies yellow discoloration ENT: denies pain with swallowing or difficulty swallowing CARDIO: chest pain, see hpi RESP: Shortness of breath with exertion : denies change in color of urine NEURO: weakness HEME: Denies any bruising MS: chronic back pain. DERM: denies rash or itching PSYCH: history of anxiety and depression - Constitutional Vitals: Temp Pulse Resp BP Pulse Ox 98.6 F 87 16 125/70 100 07/10/19 08:06 07/10/19 08:06 07/10/19 08:06 07/10/19 08:06 07/10/19 08:06 Exam: CONSTITUTIONAL:alert, no acute distress.HEAD:normocephalic.EYES:no jaundice.NECK:no obvious swelling.HEART:regular rate and rhythm, no murmurs.LUNGS:bilateral poor air entry, wheezes noted irene aterally.ABDOMEN:non distended, soft, non tender, no masses palpable, no organomegaly.RECTAL EXAM:Deferred.EXTREMITIES:no clubbing, cyanosis or edema.SKIN:pallor noted, no stigmata of chronic liver disease.NEUROLOGIC:no obvious focal defect. Results - Labs CBC & Chem 7: 07/10/19 07:58 07/10/19 07:58 Labs: Last Result 07/10/19 07:58 Calcium 7.9 L Entire Visit 07/10/19 07:58 Hgb 7.9 L Hct 24.6 L - ABG ABG results: PT/INR, D-dimer PT 18.8 Seconds (9.4-12.1) H 07/08/19 02:18 - Impressions Impressions Echocardiogram 07/09/19 11:19 Impressions: LVEF 60-65%. Normal left ventricular diastolic function. Normal right ventricular structure and function. Mild mitral regurgitation. Round, mobile echodensity approximately 1.0x1.0cm attached to the septal leaflet of the tricuspid valve may represent vegetation. Recommend correlate clinically. Mild-moderate tricuspid regurgitation. No pulmonary hypertension. Abnormal findings communicated to ordering provider. Left Ventricular Wall Motion: Rest Echo Findings All wall segments showed normal motion. Findings: Study Quality * Technically adequate exam. ECG Findings * Normal sinus rhythm. Left Ventricle * LVEF 60-65%. * Normal LV chamber size, wall thickness and function. * Normal left ventricular diastolic function. Right Ventricle * Normal right ventricular structure and function. Left Atrium * Normal left atrial size. Right Atrium * Normal right atrial size. Aortic Valve * Aortic valve not well visualized. * No aortic stenosis. * Trace aortic regurgitation. Mitral Valve * No mitral stenosis. * Normal mitral valve structure. * Mild mitral regurgitation. Tricuspid Valve * Round, mobile echodensity approximately 1.0x1.0cm attached to the septal leaflet of the tricuspid valve. * Mild-moderate tricuspid regurgitation. * Estimated RA pressure is 3 mmHg. * Estimated RVSP is 30 mmHg. * No pulmonary hypertension. Pulmonic Valve * Pulmonic valve is not well visualized. * No pulmonic stenosis. * No pulmonic regurgitation. Pulmonary Artery * Pulmonary artery not well visualized. Aorta * Normally sized aortic root. Pericardium * There is no pericardial effusion present. Interatrial Septum * No evidence of PFO by color Doppler. IVC * Normal IVC dimensions and inspiratory collapse. Consult Discharge Plan - Plan Referrals: Min Pace MD [Primary Care Provider] - <Clark Morris - Last Filed: 07/10/19 14:29> Date of Encounter: 07/10/19 Time of Encounter: 14:00 - Time Spent With Patient Total time spent is greater than 50% in coordination of care (as documented) at patient's floor/unit and/or counseling patient: GI History of Present Illness - Data of Consult Requesting Physician: Harsha Snyder - Consult Narrative History of present illness: Ms. Olmedo is a 33 year old female - Constitutional Vitals: Temp Pulse Resp BP Pulse Ox 98.7 F 95 16 116/71 100 07/10/19 12:07 07/10/19 12:07 07/10/19 12:07 07/10/19 12:07 07/10/19 12:07 Results - Labs CBC & Chem 7: 07/10/19 07:58 07/10/19 07:58 Labs: Last Result 07/10/19 07:58 Calcium 7.9 L Entire Visit 07/10/19 07:58 Hgb 7.9 L Hct 24.6 L - ABG ABG results: PT/INR, D-dimer PT 18.8 Seconds (9.4-12.1) H 07/08/19 02:18 - Attending Attestation I have personally performed a face to face evaluation on this patient. I have reviewed and agree with the care plan. History and Exam by me shows: Patient seen denies any bleeding per rectum. Examination: Alert and awake abdomen is soft. Assessment: Patient with the endocarditis now with anemia. No overt GI bleeding. Recommendation: Symptomatic treatment of anemia with the iron supplement. Will consider EGD colonoscopy to make sure there is no pathology in her colon or stomach that can cause her severe anemia, only after she is stable.
[2019-07-10] MEDS: Cholecalciferol (D-3) 1,000 UNIT (25MCG) TABLET PO SCH (10:35)
[2019-07-10] MEDS ORDERED: Iron Sucrose Complex 200 MG in 0.9 % Sodium Chloride 100 ML IVPB ONE (11:00)
--- NOTE | 2019-07-10 12:34 | Electrocardiograph Report ---
[address] [address] Test Date: 2019-07-07 Pat Name: Harmony Olmedo Department: [id number] Room: 2A Gender: F [employer] Investigation Manager: : 1985 Requested By: Rehan Rose Order Number: [id number] Reading MD: Rogelio Sanders Measurements Intervals [place] Rate: 105 P: 61 [place]: 125 QRS: 86 QRSD: 84 T: 62 QT: 352 QTc: 466 Interpretive Statements Sinus tachycardia Electronically Signed On 07-10-2019 12:32:24 EDT by Rogelio Sanders
--- NOTE | 2019-07-10 12:43 | Infectious Disease Consult ---
Infectious Disease-Consult - Encounter Date/Time Date of Encounter: 07/10/19 Time of Encounter: 12:34 - Data of Consult Patient: new to practice Reason for consult: History of IVDU with tricuspid valve endocarditis Consult date: 07/10/19 Requesting Physician: Harsha Snyder Primary Care Provider: Min Pace MD - HPI HPI: Patient is a 33-year-old woman who presented to [facility] department on 0 07/07/2019 with fevers chills chest pain and shortness of breath and was admitted for septic embolism, cavitary lesions of the lung. We are consulted today for tricuspid valve endocarditis and antibiotic recommendations. History of present illness patient is a 33-year-old woman with past medical hi story significant for IV drug abuse, COPD and hypertension apparently started having subjective fevers and chills for a few days prior to admission. Patient then started having pleuritic chest pain bilateral and significant shortness of breath. Patient had no cough no sputum production. Patient denies any headache any neck stiffness. Since admission, MAXIMUM TEMPERATURE was 102.9. Patient was tachycardic on admission and tachypneic. Presenting labs revealed a WBC of 9 with 90% neutrophils no band. Patient had a BUN of 9 and creatinine of 0.6 and INR 1.7. Lactic acid was 1.7 as well. Patient's albumin was 2.7. Toxicology was positive for opiates and amphetamines. Blood cultures 07/07/2019 2/2 sets positive for MSSA and 07/08/2019 2/2 sets positive for MSSA. Even urine culture was positive for MSSA. CT chest revealed evidence of septic emboli with multiple cavitary lesions with associated feeding vessels largest seen within the right upper lobe. Patient also had the Estinyl lymphadenopathy. MRI of the cervical, thoracic and lumbar spine revealed no infectious etiologyof the emboli. Patient was started on vancomycin, ceftriaxone and her asked to evaluate the patient make further recommendations. - Results CBC & Chem 7: 07/10/19 07:58 07/10/19 07:58 - Exam Vitals: Temp Pulse Resp BP Pulse Ox 98.7 F 95 16 116/71 100 07/10/19 12:07 07/10/19 12:07 07/10/19 12:07 07/10/19 12:07 07/10/19 12:07 No Known Home Drugs 07/08/19 [History] Allergy/AdvReac Type Severity Reaction Status Date / Time No Known Allergies Allergy Verified 07/08/19 13:59 Past Med Surg Social Fam HX - Past Medical History Medical history: COPD, diabetes, other Additional medical history: sciatica Psychiatric history: no psych history - Past Surgical History Surgical History: no surgical history - Social History Smoking Status: Former smoker Smokeless Tobacco Status: No Alcohol use: none Drug use: cocaine, opiates, IV Drug Use, prescription drug abuse Consult Discharge Plan - Plan Referrals: Min Pace MD [Primary Care Provider] -
--- NOTE | 2019-07-10 14:36 | Internal Med Progress Note ---
Hospitalist Progress Note - Encounter Date of Encounter: 07/10/19 Time of Encounter: 10:00 - Subjective Interval History: Per print color matcher was not tense to obtain the blood cultures were unsuccessful. Tried using ultrasound guidance to locate peripheral vein patient seems to have poor vasculature as the veins collapse as soon as they are canulized. She continues to complain of pain and demanding IV hydromorphone. She was evaluated by the gastroenterology team did recommend withholding any EGD colonoscopy on to have sepsis / endocarditis is resolved. GEN: Denies fever, chills or malaise HEENT: Denies headache blurriness, or dysphagia RESP: Denies SOB or cough CV: Denies chest pain or palpitations GI: Denies Nausea, vomiting, diarrhea or constipation Reviewed current in hospital medications with modifications see orders Reviewed Routine labs - Exam Vitals: Temp Pulse Resp BP Pulse Ox 98.7 F 95 16 116/71 100 07/10/19 12:07 07/10/19 12:07 07/10/19 12:07 07/10/19 12:07 07/10/19 12:07 Exam: GEN: Mildly distressed but more awake alert and conversant today, boyfriend at the bedside SKIN: Pale, warm acyanotic not jaundice HEART: RRR, 2/6 systolic murmur appreciated LUNGS: Diminished due to patient's poor respiratory effort no wheeze or crackles, overall non labored ABDOMEN; Soft, non tender or distended, BS x 4 normactive EXT: No LE edema, Pedal pulses 1+, radial pulses 2+ track gilmore noted on the right upper extremity PSYCH: Mood euphoric and affect labile - Assessment and Plan (1) Endocarditis Current Visit: Yes Status: Acute Assessment and Plan: 4 out of 4 positive blood cultures for gram-positive cocci grew staph aureus MSSA and sensitivity . Appears just agreeable to ECF placement for continuous IV antibiotics. Ongoing plan per infectious diseases appreciated input Given her history of IV drug use if she grows MSSA options would be either ECF for continued IV antibiotics which most likely patient would not be compliant, or Cipro with rifampin for 6 weeks orally if okay with the ID specialist. septic emboli noted on CTA chest on vancomycin and ceftriaxone will consult pharmacy to dose vancomycin appreciated input echocardiogram pending (2) Sepsis Current Visit: Yes Status: Acute Assessment and Plan: 4/4 blood cultures positive for staph aureus MSSA, urine culture also positive for staph aureus also MSSA currently on vancomycin and ceftriaxone, tricuspid valve vegetation noted likely endocarditis related sepsis, ID have been consulted ongoing plan per Infectious diseases appreciate input (3) Acute on chronic anemia Current Visit: Yes Status: Acute Assessment and Plan: Hemoglobin improved from 5.1-8.9 and is post 2 units blood transfusion and now 7.6 . trended Up today to 7.9, was informed by the GI team recommended no intervention given her sepsis appreciated input Patient presents with critical lab value of hemoglobin of 5.1, she has been ordered 2 units of packed red blood cells upon review of prior labs anemia dates back to 2014 with numbers ranging from 8.5-11.2 hemoglobin on admission was 6. 6 repeat hemoglobin in the morning was 5.1 patient was reluctant to provide stool sample. This morning during the encounter she is not interested in providing any history regarding possible causes for her anemia she seems to be more interested in demanding for opioids and Suboxone. She is threatening to leave AMA. No obvious hematoma noted on exam, does not appear jaundiced to suggest hemolytic anemia LFTs are unremarkable with no normal direct and total bilirubin, urinalysis on admission is negative for blood. Although she denied heavy menses boyfriend who was at the bedside reports having heavy menses. Overall she is stable we will trend daily CBC, ferritin is within normal limits, check B12 folate is pending. She did deny any history of Eastern on Mediterranean origin as such thalassemias are low on differential. (4) UTI (urinary tract infection) Current Visit: Yes Status: Acute Assessment and Plan: UA suggestive for UTI cultures revealed staph aureus MSSA on ceftriaxone for endocarditis, we will likely have antibiotics switched per ID (5) Cervical stenosis of spinal canal Current Visit: Yes Status: Acute Assessment and Plan: Noted on cervical spine MRI- C5-6 disc protrusion as described with resulting moderate central canal stenosis. No evidence of osteomyelitis in the cervical spine. She will need outpatient follow-up with neuro surgeon (6) Polysubstance abuse Current Visit: Yes Status: Acute Assessment and Plan: Patient is demanding Suboxone fentanyl and morphine otherwise threatening to leave AMA, discussed with patient that we could manage her pain symptoms with oxycodone and this would help her not withdraw but she seems to be not interested in oxycodone polysubstance abuse, complicated treatment for her endocarditis as an outpatient. Of note urine toxicology screen was positive for opioids and amphetamines (7) Hyponatremia Current Visit: Yes Status: Acute Assessment and Plan: Mild sodium 134 today Likely due to poor oral intake she appears euvolemic Na 1 34 today will trend (8) Hypokalemia Current Visit: Yes Status: Acute Assessment and Plan: supplement orally, resolved potassium today slightly elevated at 5.2 however in the setting of difficult blood draw suspect lysis of RBC (9) Hypocalcemia Current Visit: Yes Status: Acute Assessment and Plan: Corrected calcium 8.14 2 days ago, serum calcium trended up 7.1-7.2-7.9 we will check PTH and vitamin D will place a calcium supplement orally she received 1 g of calcium gluconate at ED, patient has vitamin D deficiency PTH is unremarkable supplement orally with calcium and treat her vitamin D for deficiency (10) Cavitary lesion of lung Current Visit: Yes Status: Acute Assessment and Plan: In the setting of septic emboli from endocarditis will need repeat CT of the chest in 6 months to document resolution although given his tobacco use malignancies is of concern (11) Tobacco abuse Current Visit: Yes Status: Acute Assessment and Plan: Encourage sensation (12) Vitamin D deficiency Current Visit: Yes Status: Acute Assessment and Plan: Vitamin D 5,000 units started, vitamin D level of 16 (13) Chronic back pain Current Visit: Yes Status: Acute Assessment and Plan: Patient complaining of acute on chronic low back pain, of note she is already on oxycodone, after much deliberation and education she is agreeable to lidocaine patches DVT Prophylaxis: Heparin subcutaneous - Time Spent with Patient Total time spent is greater than 50% in coordination of care (as documented) at patient's floor/unit and/or counseling patient: Internal Medicine: Result - Labs CBC & Chem 7: 07/10/19 07:58 07/10/19 07:58 Labs: Short CBC 07/10/19 Range/Units 07:58 WBC 9.4 (4.3-11.1) K/mcL Hgb 7.9 L (11.5-15.4) g/dL Hct 24.6 L (35.3-44.9) % Plt Count 405 H (140-400) K/mcL BMP 07/10/19 07:58 Sodium 134 L Potassium 5.2 H D Chloride 105 Carbon Dioxide 25 BUN 5 L Creatinine 0.44 L Glucose 103 Calcium 7.9 L - ABG Interpretation ABG results: PT/INR, D-dimer PT 18.8 Seconds (9.4-12.1) H 07/08/19 02:18 Consult Discharge Plan - Plan Referrals: Min Pace MD [Primary Care Provider] - (1) Endocarditis Qualifiers: Endocarditis type: infective Infective endocarditis organism: bacterial Chronicity: acute Qualified Code(s): I33.0 - Acute and subacute infective endocarditis (2) Sepsis Qualifiers: Sepsis type: sepsis due to unspecified organism Sepsis acute organ dysfunction status: with acute organ dysfunction Severe sepsis acute organ dysfunction type: acute respiratory failure Acute respiratory failure type: unspecified Severe sepsis shock status: without septic shock Qualified Code(s): A41.9 - Sepsis, unspecified organism; R65.20 - Severe sepsis without septic shock; J96.00 - Acute respiratory failure, unspecified whether with hypoxia or hypercapnia (4) UTI (urinary tract infection) Qualifiers: Urinary tract infection type: site unspecified Hematuria presence: with hematuria Qualified Code(s): N39.0 - Urinary tract infection, site not specified; R31.9 - Hematuria, unspecified
[2019-07-10] MEDS: Ringers Solution, Lactated 1,000 ML IVC SCH (18:15)
[2019-07-10] MEDS: Insulin DETEMIR 100 UNIT/ML X5UNITS SQ SCH (21:19)
[2019-07-10] MEDS ORDERED: Aminoglycoside Consult 1 EACH MC ONE (23:26)
[2019-07-11] MEDS: *HR* OxyCODONE Immed Rel 5 MG TABLET PO PRN ×4 (04:10→21:25)
[2019-07-11] MEDS: *HR* Heparin 5,000 UNIT/ML VIAL SQ SCH ×3 (05:16→21:25)
[2019-07-11 05:52] LABS: Hematocrit 24.5 % (35.3-44.9); Hemoglobin 7.6 g/dL (11.5-15.4); Mean Corpuscular Hemoglobin 24.7 pg (28.0-33.3); Mean Corpuscular Volume 79.5 fL (83.0-100.0); Mean Platelet Volume 9.4 fL (9.4-12.4); Platelet Count 416 K/mcL (140-400); Red Blood Count 3.08 M/mcL (3.82-4.97); Red Cell Distribution Width 17.5 % (11.5-14.5); White Blood Count 7.2 K/mcL (4.3-11.1)
[2019-07-11 06:12] LABS: BUN/Creatinine Ratio 11 (6-26); Blood Urea Nitrogen 5 mg/dL (6-20); Calcium 8.1 mg/dL (8.6-10.3); Carbon Dioxide 27 mEq/L (23-29); Chloride 102 mEq/L (98-107); Glucose 83 mg/dL (70-105); Osmolality,Calculated 280 (280-300); Potassium 4.2 mEq/L (3.5-5.1); Sodium 137 mEq/L (136-145); eGFR For African Americans > 60 (> 60); eGFR For Non-African Americans > 60 (> 60)
[2019-07-11] MEDS: Insulin LISPRO 300 UNITS/3 ML VIAL SQ SCH ×3 (08:10→17:10)
[2019-07-11] MEDS: Ringers Solution, Lactated 1,000 ML IVC SCH ×2 (08:11→21:25)
[2019-07-11] MEDS: cefTRIAXone 2,000 MG in Water for inj. (sterile) 20 ML IVPB SCH (08:13)
[2019-07-11] MEDS: Cholecalciferol (D-3) 1,000 UNIT (25MCG) TABLET PO SCH (08:13)
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
--- NOTE | 2019-07-11 15:58 | Electrocardiograph Report ---
[place] [id number] Test Date: 2019-07-11 Pat Name: Harmony Olmedo Department: 112 Room: [facility] Gender: F Donor Services Manager: : 1985 Requested By: Harsha Dodd Order Number: [id number] Reading MD: Joy Echavarria Measurements Intervals [place] Rate: 98 P: 48 NC: 133 QRS: 80 QRSD: 85 T: 66 QT: 347 QTc: 403 Interpretive Statements SINUS RHYTHM Electronically Signed On 07-11-2019 15:57:22 EDT by Joy Echavarria
[2019-07-11] MEDS: Insulin DETEMIR 100 UNIT/ML X5UNITS SQ SCH (21:25)
--- NOTE | 2019-07-11 22:57 | Infectious Disease Consult ---
Infectious Disease-Consult - Encounter Date/Time Date of Encounter: 07/10/19 Time of Encounter: 13:00 - Data of Consult Patient: new to practice Reason for consult: endocarditis Consult date: 07/10/19 Requesting Physician: Harsha Snyder Primary Care Provider: Min Pace MD - [facility] HPI: Patient is a 33-year-old woman who presented to [facility] department on 07/07/2019 with fevers chills chest pain and shortness of breath and was admitted for septic embolism, cavitary lesions of the lung. We are consulted today for tricuspid valve endocarditis and antibiotic recommendations. History of present illness patient is a 33-year-old woman with past medical history significant for IV drug abuse, COPD and hypertension apparently started having subjective fevers and chills for a few days prior to admission. Patient then started having pleuritic chest pain bilateral and significant shortness of breath. Patient had no cough no sputum production. Patient denies any headache any neck stiffness. Since admission, MAXIMUM TEMPERATURE was 102.9. Patient was tachycardic on admission and tachypneic. Presenting labs revealed a WBC of 9 with 90% neutrophils no band. Patient had a BUN of 9 and creatinine of 0.6 and INR 1.7. Lactic acid was 1.7 as well. Patient's albumin was 2.7. Toxicology was positive for opiates and amphetamines. Blood cultures 07/07/2019 2/2 sets positive for MSSA and 07/08/2019 2/2 sets positive for MSSA. Even urine culture was positive for MSSA. CT chest revealed evidence of septic emboli with multiple cavitary lesions with associated feeding vessels largest seen within the right upper lobe. Patient also had the mediastinal lymphadenopathy. MRI of the cervical, thoracic and lumbar spine revealed no infectious etiology. Patient was started on vancomycin, ceftriaxone and her asked to evaluate the patient make further recommendations. - ROS Review of Systems: 10 point ROS done, negative other for what's mentioned in the HPI - Results CBC & Chem 7: 07/11/19 05:07 07/11/19 05:07 - Exam Vitals: Temp Pulse Resp BP Pulse Ox 98.8 F 71 18 125/70 97 07/11/19 20:31 07/11/19 20:31 07/11/19 20:31 07/11/19 20:31 07/11/19 20:31 Exam: General: pleasant, no acute distress Skin: Pale, warm and diaphoretic and multiple scabbed lesions noted. No endocarditis stigmata Head: normocphalic atraumatic Eyes: non icteric, ROSARIO, EOMI, no conjucticval hemorrage EENT:: Dry mucous membranes. or oral lesions Neck: No JVD. No carotid bruits. No palpable thyroid. Chest: Diminished thoracic expansion. No wheezes, rales or rhonchi.. Heart: Tachycardic S1S2 without any appreciated murmrus Abdomen: Non-distended, soft and non-tender to palpation. No peritoneal reaction. Extremities: No clubbing, cyanosis or edema. No calf tenderness. Normal distal pulses. Back: no tenderness over the thoracic and lumbar spine Neurological: Awake, alert and oriented to person, place and time. No focal deficits. Psych: Affect appropriate. No Known Home Drugs 07/08/19 [History] Allergy/AdvReac Type Severity Reaction Status Date / Time No Known Allergies Allergy Verified 07/08/19 13:59 - Assessment and Plan (1) Sepsis Current Visit: Yes Status: Acute had 3 SIRS criteria on admission secondary to MSSA bacteremia complicated with endocarditis of the tricuspid valve and septic emboli to the lungs Qualifiers: Sepsis type: sepsis due to unspecified organism Sepsis acute organ dysfunction status: with acute organ dysfunction Severe sepsis acute organ dysfunction type: acute respiratory failure Acute respiratory failure type: unspecified Severe sepsis shock status: without septic shock Qualified Code(s): A41.9 - Sepsis, unspecified organism; R65.20 - Severe sepsis without septic shock; J96.00 - Acute respiratory failure, unspecified whether with hypoxia or hypercapnia SNOMED Code(s): 96868203 (2) MSSA bacteremia Current Visit: Yes Status: Acute secondary to IVDU complicated with tricuspid endocarditis blood cultures 07/07 2/2 sets positive and 07/08 2/2 sets positive SNOMED Code(s): 994204738 (3) Endocarditis Current Visit: Yes Status: Acute on the tricuspid valve 1x1 cm causative organism MSSA septic emboli to the lungs Qualifiers: Endocarditis type: infective Infective endocarditis organism: bacterial Chronicity: acute Qualified Code(s): I33.0 - Acute and subacute infective endocarditis SNOMED Code(s): 85824593 (4) Pneumonia Current Visit: No Status: Acute likely secondary to septic emboli from MSSA bacteremia Qualifiers: Pneumonia type: due to unspecified organism Laterality: bilateral Lung location: lower lobe of lung Qualified Code(s): J18.1 - Lobar pneumonia, unspecified organism SNOMED Code(s): 243098818 (5) Chronic back pain Current Visit: Yes Status: Acute imaging negative for discitis/vertabral osteomyelitis Qualifiers: Back pain location: back pain in unspecified location Back pain laterality: unspecified Qualified Code(s): M54.9 - Dorsalgia, unspecified; G89.29 - Other chronic pain SNOMED Code(s): 680775343 (6) IVDU (intravenous drug user) Current Visit: Yes Status: Acute will check HIV and hepatitis status SNOMED Code(s): 864515070 - Recommendations Recommendations: will repeat blood cultures check HIV, Hepatitis B and C will still consider SAMANTHA d/c vanc d/c zosyn start cefazolin 2 grams IV q8hrs duration of treatment 8 weeks will need a midline once cultures from blood are negative for at least 48 hours monitor labs and for drug toxicity will need placement, can't go home with IV access Past Med Surg Social Fam HX - Past Medical History Medical history: COPD, diabetes, other Additional medical history: sciatica Psychiatric history: no psych history - Past Surgical History Surgical History: no surgical history - Social History Smoking Status: Former smoker Smokeless Tobacco Status: No Alcohol use: none Drug use: cocaine, opiates, IV Drug Use, prescription drug abuse Consult Discharge Plan - Plan Instructions: Diabetes Mellitus Type 2 in Adults (DC) Referrals: Min Pace MD [Primary Care Provider] -
[2019-07-11 23:07] LABS: Amphetamine Screen,Urine Positive ng/mL (Cutoff=1000); Barbiturate Screen,Urine Negative ng/mL (Cutoff=200); Benzodiazepines Screen,Urine Negative ng/mL (Cutoff=200); Cannabinoid Screen,Urine Negative ng/mL (Cutoff = 50); Cocaine Screen,Urine Negative ng/mL (Cutoff= 300); Opiate Screen,Urine Positive ng/mL (Cutoff=300); Phencyclidine Screen,Urine Negative ng/mL (Cutoff=25)
--- NOTE | 2019-07-11 23:14 | Infectious Disease Progress No ---
ID Progress Note Date of Encounter: 07/11/19 Time of Encounter: 12:00 - Subjective Subjective: Patient seen and examined. Clinically no change. Denies any headache. no neck stiffness. some pleutitic chest pain. no cough or sputum production no diarrhea no urinary symptoms no joint effusion VS noted labs noted cultures noted - Objective CBC & Chem 7: 07/11/19 05:07 07/11/19 05:07 - Exam Vitals: Temp Pulse Resp BP Pulse Ox 98.8 F 71 18 125/70 97 07/11/19 20:31 07/11/19 20:31 07/11/19 20:31 07/11/19 20:31 07/11/19 20:31 - Assessment and Plan (1) Sepsis Current Visit: Yes Status: Acute had 3 SIRS criteria on admission secondary to MSSA bacteremia complicated with endocarditis of the tricuspid valve and septic emboli to the lungs Qualifiers: Sepsis type: sepsis due to unspecified organism Sepsis acute organ dysfunction status: with acute organ dysfunction Severe sepsis acute organ dysfunction type: acute respiratory failure Acute respiratory failure type: unspecified Severe sepsis shock status: without septic shock Qualified Code(s): A41.9 - Sepsis, unspecified organism; R65.20 - Severe sepsis without septic shock; J96.00 - Acute respiratory failure, unspecified whether with hypoxia or hypercapnia SNOMED Code(s): 11902662 (2) MSSA bacteremia Current Visit: Yes Status: Acute secondary to IVDU complicated with tricuspid endocarditis blood cultures 07/07 2/2 sets positive and 07/08 2/2 sets positive SNOMED Code(s): 436881239 (3) Endocarditis Current Visit: Yes Status: Acute on the tricuspid valve 1x1 cm causative organism MSSA septic emboli to the lungs Qualifiers: Endocarditis type: infective Infective endocarditis organism: bacterial Chronicity: acute Qualified Code(s): I33.0 - Acute and subacute infective endocarditis SNOMED Code(s): 97779081 (4) Pneumonia Current Visit: No Status: Acute likely secondary to septic emboli from MSSA bacteremia Qualifiers: Pneumonia type: due to unspecified organism Laterality: bilateral Lung location: lower lobe of lung Qualified Code(s): J18.1 - Lobar pneumonia, unspecified organism SNOMED Code(s): 301898337 (5) Chronic back pain Current Visit: Yes Status: Acute imaging negative for discitis/vertabral osteomyelitis Qualifiers: Back pain location: back pain in unspecified location Back pain laterality: unspecified Qualified Code(s): M54.9 - Dorsalgia, unspecified; G89.29 - Other chronic pain SNOMED Code(s): 202535256 (6) IVDU (intravenous drug user) Current Visit: Yes Status: Acute will check HIV and hepatitis status SNOMED Code(s): 951508636 - Recommendations Recommendations: continue cefazolin 2 grams IV q8hrs duratoin of treatmen 6-8 weeks monitor labs and for drug toxicity will need a midline once cultures are negative for over 48 hours social psychologist to help with placement Consult Discharge Plan - Plan Instructions: Diabetes Mellitus Type 2 in Adults (DC) Referrals: Min Pace MD [Primary Care Provider] -
[2019-07-12] MEDS: *HR* OxyCODONE Immed Rel 5 MG TABLET PO PRN ×5 (02:44→21:50)
[2019-07-12 03:59] LABS: Enterococcus by PCR Not Detected (Not Detect); mecA Methicillin-Resist Gene Not Detected (Not Detect)
[2019-07-12 04:00] LABS: Acinetobacter baumannii by PCR Not Detected (Not Detect); Candida albicans by PCR Not Detected (Not Detect); Candida glabrata by PCR Not Detected (Not Detect); Candida krusei by PCR Not Detected (Not Detect); Candida parapsilosis by PCR Not Detected (Not Detect); Candida tropicalis by PCR Not Detected (Not Detect); Enterobacter cloacae Cmplx PCR Not Detected (Not Detect); Enterobacteriaceae by PCR Not Detected (Not Detect); Escherichia coli by PCR Not Detected (Not Detect); Klebsiella oxytoca by PCR Not Detected (Not Detect); Klebsiella pneumoniae by PCR Not Detected (Not Detect); Proteus by PCR Not Detected (Not Detect); Pseudomonas aeruginosa by PCR Not Detected (Not Detect); Serratia marcescens by PCR Not Detected (Not Detect); Staphylococcus aureus by PCR DETECTED (Not Detect); Staphylococcus by PCR Not Detected (Not Detect); Streptococcus agalactiae(B)PCR Not Detected (Not Detect); Streptococcus by PCR Not Detected (Not Detect); Streptococcus pneumoniae PCR Not Detected (Not Detect); Streptococcus pyogenes (A) PCR Not Detected (Not Detect)
[2019-07-12] MEDS: *HR* Heparin 5,000 UNIT/ML VIAL SQ SCH ×3 (06:14→21:49)
[2019-07-12] MEDS: Insulin LISPRO 300 UNITS/3 ML VIAL SQ SCH ×3 (08:35→17:08)
[2019-07-12] MEDS: Cholecalciferol (D-3) 1,000 UNIT (25MCG) TABLET PO SCH (08:42)
[2019-07-12] MEDS: Ringers Solution, Lactated 1,000 ML IVC SCH ×2 (09:06→15:24)
--- NOTE | 2019-07-12 13:05 | Internal Med Progress Note ---
Hospitalist Progress Note - Encounter Date of Encounter: 07/12/19 Time of Encounter: 09:45 - Subjective Interval History: Seen at bedside. Complaining of the left sided sciatica pain. Denies fever, and chills. Repeat blood cultures from yesterday, still showing stph aureus. Discussed with the patient and she understands that she will need long-term IV antibiotics that she needs to go to intermediate facility for IV antibiotic infusion once she is stable. the [facility], once she is stable. - Exam Vitals: Temp Pulse Resp BP Pulse Ox 98.1 F 83 18 106/67 98 07/12/19 12:11 07/12/19 12:11 07/12/19 12:11 07/12/19 12:11 07/12/19 12:11 Exam: GEN: Mildly distressed, somewhat diaphoretic SKIN: Pale, warm acyanotic not jaundice HEART: RRR and tachycardic 2/6 systolic murmur appreciated LUNGS: no wheeze or crackles, overall non labored ABDOMEN; Soft, non tender or distended, BS x 4 normactive EXT: No LE edema, Pedal pulses 1+, radial pulses 2+ track gilmore noted on the right upper extremity PSYCH: Mood euphoric and affect labile - Assessment and Plan (1) Endocarditis Current Visit: Yes Status: Acute Assessment and Plan: Blood cultures and urine cultures were positive for staphylococcal aureus (MSSA) that the presentation. TTE consistent with vegetations at the tricuspid valve and evident of infective endocarditis. Repeat Blood cultures also growing Staphylococcus aureus. Currently patient is on IV cefazolin. ID on board. Patient will need additional blood cultures. Paitent agreeable to go to the ECF if needed for the IV antibiotics (2) Sepsis Current Visit: Yes Status: Acute Assessment and Plan: MSSA endocarditis Plan mentioned above (3) Acute on chronic anemia Current Visit: Yes Status: Acute Assessment and Plan: Presented with hemoglobin of 6.6, status post 2 units of blood transfusion, currently hemoglobin stable around 7.6. GI was consulted, recommended to hold off on EGD and colonoscopy at this point. No interventions plannned at this point (4) UTI (urinary tract infection) Current Visit: Yes Status: Acute Assessment and Plan: UA suggestive for UTI cultures revealed staph aureus MSSA on ceftriaxone for endocarditis, we will likely have antibiotics switched per ID (5) Cervical stenosis of spinal canal Current Visit: Yes Status: Acute Assessment and Plan: Noted on cervical spine MRI-C5-6 disc protrusion as described with resulting moderate central canal stenosis. No evidence of osteomyelitis in the cervical spine. She will need outpatient follow-up with neuro surgeon, continue oxycodone for now as needed for pain (6) Polysubstance abuse Current Visit: Yes Status: Acute Assessment and Plan: Admitted IV drug abuse Advised to avoid the IV drugs May benefot from rehab Explained to her that she can have further complications wiht further morbidity and increased risk of mortality if she continues to use IV drugs (7) Cavitary lesion of lung Current Visit: Yes Status: Acute Assessment and Plan: In the setting of septic emboli from endocarditis will need repeat CT of the [facility] in 6 months to document resolution although given his tobacco use malignancies is of concern (8) Tobacco abuse Current Visit: Yes Status: Acute Assessment and Plan: Encourage cessation (9) Vitamin D deficiency Current Visit: Yes Status: Acute Assessment and Plan: Vitamin D 5,000 units started, vitamin D level of 16 (10) Chronic back pain Current Visit: Yes Status: Acute Assessment and Plan: Continue oxycodoen COntinue lidocaine patches - Time Spent with Patient Total time spent is greater than 50% in coordination of care (as documented) at patient's floor/unit and/or counseling patient: Internal Medicine: Result - Labs CBC & Chem 7: 07/11/19 05:07 07/11/19 05:07 - ABG Interpretation ABG results: PT/INR, D-dimer PT 18.8 Seconds (9.4-12.1) H 07/08/19 02:18 Consult Discharge Plan - Plan Instructions: Diabetes Mellitus Type 2 in Adults (DC) Referrals: Min Pace MD [Primary Care Provider] - (1) Endocarditis Qualifiers: Endocarditis type: infective Infective endocarditis organism: bacterial Chronicity: acute Qualified Code(s): I33.0 - Acute and subacute infective endocarditis (2) Sepsis Qualifiers: Sepsis type: sepsis due to unspecified organism Sepsis acute organ dysfunction status: with acute organ dysfunction Severe sepsis acute organ dysfunction type: acute respiratory failure Acute respiratory failure type: unspecified Severe sepsis shock status: without septic shock Qualified Code(s): A41.9 - Sepsis, unspecified organism; R65.20 - Severe sepsis without septic shock; J96.00 - Acute respiratory failure, unspecified whether with hypo brannon or hypercapnia (4) UTI (urinary tract infection) Qualifiers: Urinary tract infection type: site unspecified Hematuria presence: with hematuria Qualified Code(s): N39.0 - Urinary tract infection, site not specified; R31.9 - Hematuria, unspecified (10) Chronic back pain Qualifiers: Back pain location: back pain in unspecified location Back pain laterality: unspecified Qualified Code(s): M54.9 - Dorsalgia, unspecified; G89.29 - Other chronic pain
--- NOTE | 2019-07-12 15:23 | Infectious Disease Progress No ---
ID Progress Note Date of Encounter: 07/12/19 Time of Encounter: 15:21 - Subjective Subjective: Patient seen and examined. Clinically no change. Denies any headache. no neck stiffness. Having significant pleuritic chest pain.. no cough or sputum production no diarrhea no urinary symptoms no joint effusion VS noted labs noted cultures noted - Objective CBC & Chem 7: 07/11/19 05:07 07/11/19 05:07 - Exam Vitals: Temp Pulse Resp BP Pulse Ox 98.1 F 83 18 106/67 98 07/12/19 12:11 07/12/19 12:11 07/12/19 12:11 07/12/19 12:11 07/12/19 12:11 Exam: GENERAL: Comfortable. Laying in bed NAD HEENT: ROSARIO, EOMI LUNGS: Good air sounds bilaterally, no wheezing or rhonchi CV: RRR, S1 S2 ABDOMEN: Soft, nontender, + bowel sounds EXT: Adequate perfusion. No edema NEURO: A&OX3; no focal deficit - Assessment and Plan (1) Sepsis Current Visit: Yes Status: Acute had 3 SIRS criteria on admission secondary to MSSA bacteremia complicated with endocarditis of the tricuspid valve and septic emboli to the lungs Qualifiers: Sepsis type: sepsis due to unspecified organism Sepsis acute organ dysfunction status: with acute organ dysfunction Severe sepsis acute organ dysfunction type: acute respiratory failure Acute respiratory failure type: unspecified Severe sepsis shock status: without septic shock Qualified Code(s): A41.9 - Sepsis, unspecified organism; R65.20 - Severe sepsis without septic shock; J96.00 - Acute respiratory failure, unspecified whether with hypoxia or hypercapnia SNOMED Code(s): 73661788 (2) MSSA bacteremia Current Visit: Yes Status: Acute secondary to IVDU complicated with tricuspid endocarditis blood cultures 07/07 2/2 sets positive and 07/08 2/2 sets positive SNOMED Code(s): 020547710 (3) Endocarditis Current Visit: Yes Status: Acute on the tricuspid valve 1x1 cm causative organism MSSA septic emboli to the lungs Qualifiers: Endocarditis type: infective Infective endocarditis organism: bacterial Chronicity: acute Qualified Code(s): I33.0 - Acute and subacute infective endocarditis SNOMED Code(s): 35103547 (4) Pneumonia Current Visit: No Status: Acute likely secondary to septic emboli from MSSA bacteremia Qualifiers: Pneumonia type: due to unspecified organism Laterality: bilateral Lung location: lower lobe of lung Qualified Code(s): J18.1 - Lobar pneumonia, unspecified organism SNOMED Code(s): 833992649 (5) Chronic back pain Current Visit: Yes Status: Acute imaging negative for discitis/vertabral osteomyelitis Qualifiers: Back pain location: back pain in unspecified location Back pain laterality: unspecified Qualified Code(s): M54.9 - Dorsalgia, unspecified; G89.29 - Other chronic pain SNOMED Code(s): 819457815 (6) IVDU (intravenous drug user) Current Visit: Yes Status: Acute will check HIV and hepatitis status SNOMED Code(s): 516458735 - Recommendations Recommendations: continue cefazolin 2 grams IV q8hrs duratoin of treatmen 6-8 weeks monitor labs and for drug toxicity 1/2 blood cultures positive 07/11/2019 Repeat blood culture 07/13/2019 Discussed with the hospitalist team will need a midline once cultures are negative for over 48 hours oncology social work to help with placement Consult Discharge Plan - Plan Instructions: Diabetes Mellitus Type 2 in Adults (DC) Referrals: Min Pace MD [Primary Care Provider] -
[2019-07-12] MEDS: Insulin DETEMIR 100 UNIT/ML X5UNITS SQ SCH (21:49)
[2019-07-13] MEDS: Ringers Solution, Lactated 1,000 ML IVC SCH ×2 (05:39→18:28)
[2019-07-13] MEDS: *HR* Heparin 5,000 UNIT/ML VIAL SQ SCH ×3 (05:39→21:59)
[2019-07-13] MEDS: Insulin LISPRO 300 UNITS/3 ML VIAL SQ SCH ×3 (10:00→17:49)
[2019-07-13] MEDS: Cholecalciferol (D-3) 1,000 UNIT (25MCG) TABLET PO SCH (10:30)
--- NOTE | 2019-07-13 10:55 | Internal Med Progress Note ---
Hospitalist Progress Note - Encounter Date of Encounter: 07/13/19 Time of Encounter: 09:45 - Subjective Interval History: Seen at bedside. Denies fever, chills, rigors, SOB, dysuria. No fever spikes overnight. No overnight evetns. - Exam Vitals: Temp Pulse Resp BP Pulse Ox 98.1 F 90 16 112/67 100 07/13/19 07:22 07/13/19 07:22 07/13/19 07:22 07/13/19 07:22 07/13/19 07:22 Exam: General: Alert and oriented, no physical distress, able to follow commands. HEENT: No thyromegaly, no lymphadenopathy, no discharge. Eyes: No discharge. Normal conjuctiva, no icterus Respiratory: Normal vesicular breathing, no added sounds, breathing equal in both sides. CVS: Normal heart sounds, no murmurs, regular rhthm, no edema Extremities: No peripheral edema, peripheral pulses intact. Lymph nodes: No lymphadenopathy Gastrointestinal: Soft, nontender abdomen, normal abdominal sounds. No distention noted. Genitourinary: No paravertebral tenderness. Skin: Track gilmore noted Neurological: Alert and oriented. No focal deficits. Cranial nerves II-XII intact. - Assessment and Plan (1) Endocarditis Current Visit: Yes Status: Acute Assessment and Plan: Blood cultures and urine cultures(07/07) were positive for staphylococcal aureus (MSSA) at the presentation in all botles. TTE consistent with vegetations at the tricuspid valve and evident of infective endocarditis. Repeat Blood cultures(07/11) also growing Staphylococcus aureus in 1/2 bottles. Currently patient is on IV cefazolin 2g Q8H ID on board. Additional blood cultures obtianed today Will need midline palcement, once blood cultures negative for 48 H Paitent agreeable to go to the ECF if needed for the IV antibiotics (2) Sepsis Current Visit: Yes Status: Acute Assessment and Plan: MSSA endocarditis Plan mentioned above (3) Acute on chronic anemia Current Visit: Yes Status: Acute Assessment and Plan: Presented with hemoglobin of 6.6, status post 2 units of blood transfusion, currently hemoglobin stable around 7.6. GI was consulted, recommended to hold off on EGD and colonoscopy at this point. No interventions plannned at this point (4) UTI (urinary tract infection) Current Visit: Yes Status: Acute Assessment and Plan: UA suggestive for UTI Cultures revealed staph aureus MSSA, on cefazolin for the endocarditis. Continue the current management. (5) Cervical stenosis of spinal canal Current Visit: Yes Status: Acute Assessment and Plan: Noted on cervical spine MRI-C5-6 disc protrusion as described with resulting moderate central canal stenosis. No evidence of osteomyelitis in the cervical spine. She will need outpatient follow-up with neuro surgeon, continue oxycodone for now as needed for pain (6) Polysubstance abuse Current Visit: Yes Status: Acute Assessment and Plan: Admitted IV drug abuse Advised to avoid the IV drugs May benefot from rehab Explained to her that she can have further complications wiht further morbidity and increased risk of mortality if she continues to use IV drugs (7) Cavitary lesion of lung Current Visit: Yes Status: Acute Assessment and Plan: In the setting of septic emboli from endocarditis will need repeat CT of the chest in 6 months to document resolution (8) Tobacco abuse Current Visit: Yes Status: Acute Assessment and Plan: Encourage cessation (9) Vitamin D deficiency Current Visit: Yes Status: Acute Assessment and Plan: Vitamin D 5,000 units started, vitamin D level of 16 (10) Chronic back pain Current Visit: Yes Status: Acute Assessment and Plan: Continue oxycodoen COntinue lidocaine patches - Time Spent with Patient Total time spent is greater than 50% in coordination of care (as documented) at patient's floor/unit and/or counseling patient: Internal Medicine: Result - Labs CBC & Chem 7: 07/11/19 05:07 07/11/19 05:07 - ABG Interpretation ABG results: PT/INR, D-dimer PT 18.8 Seconds (9.4-12.1) H 07/08/19 02:18 - VTE Documentation of Mechanical Device: Graduated compression elastic hosiery Consult Discharge Plan - Plan Instructions: Diabetes Mellitus Type 2 in Adults (DC) Referrals: Min Pace MD [Primary Care Provider] - (1) Endocarditis Qualifiers: Endocarditis type: infective Infective endocarditis organism: bacterial Ch ronicity: acute Qualified Code(s): I33.0 - Acute and subacute infective endocarditis (2) Sepsis Qualifiers: Sepsis type: sepsis due to unspecified organism Sepsis acute organ dysfunction status: with acute organ dysfunction Severe sepsis acute organ dysfunction type: acute respiratory failure Acute respiratory failure type: unspecified Severe sepsis shock status: without septic shock Qualified Code(s): A41.9 - Sepsis, unspecified organism; R65.20 - Severe sepsis without septic shock; J96.00 - Acute respiratory failure, unspecified whether with hypoxia or hypercapnia (4) UTI (urinary tract infection) Qualifiers: Urinary tract infection type: site unspecified Hematuria presence: with hematuria Qualified Code(s): N39.0 - Urinary tract infection, site not specified; R31.9 - Hematuria, unspecified (10) Chronic back pain Qualifiers: Back pain location: back pain in unspecified location Back pain laterality: unspecified Qualified Code(s): M54.9 - Dorsalgia, unspecified; G89.29 - Other chronic pain
--- NOTE | 2019-07-13 11:48 | Infectious Disease Progress No ---
ID Progress Note Date of Encounter: 07/13/19 Time of Encounter: 11:46 - Subjective Subjective: Patient seen and examined. No acute events noted overnight. Patient complains of lower back pain that is at baseline. Denies fevers, chills, rigors. Denies chest pain, shortness of breath, or cough. Denies nausea, vomiting, diarrhea, or constipation. Denies abdominal pain or urinary complaints. Denies oral thrush or skin rashes. States her last bowel movement was this morning. States her appetite is very good. - Objective CBC & Chem 7: 07/13/19 11:15 07/13/19 11:15 - Exam Vitals: Temp Pulse Resp BP Pulse Ox 98.1 F 90 16 112/67 100 07/13/19 07:22 07/13/19 07:22 07/13/19 07:22 07/13/19 07:22 07/13/19 07:22 Exam: Head: Atraumatic, normal inspection, normocephalic. Eye: EOMI, PERRLA, no scleral icterus noted. No subconjunctival hemorrhage noted. ENT: Mucous membranes moist. No odontogenic infection noted. Neck: Normal inspection, no meningismus. Respiratory: Clear to auscultation. No rales, respiratory distress, rhonchi, or wheezes noted. Cardiovascular: Regular rate and rhythm, S1 and S2 audible. No murmurs, rubs, or gallops. GI: Soft, nondistended, normal bowel sounds. Nontender. Extremities: No joint swelling, pedal edema, or tenderness noted. Back: Normal inspection. No vertebral tenderness noted. Neurological: Alert, oriented 3, no focal deficits. Psychiatric: normal affect, normal mood. Skin: Dry, intact, warm. Normal color. No rashes. No endocarditis stigmata noted. - Assessment and Plan (1) Sepsis Current Visit: Yes Status: Acute The patient had 3 SIRS criteria on admission. Secondary to MSSA bacteremia complicated with endocarditis of the tricuspid valve and septic emboli to the lungs. Improved. Blood cultures drawn 07/07/19 are +2 out of 2 sets are MSSA. Repeat blood cultures on 07/08/19 are +2 out of 2 sets. Repeat blood cultures from 07/11/19 are +1 out of 2 sets. Qualifiers: Sepsis type: sepsis due to unspecified organism Sepsis acute organ dysfunction status: with acute organ dysfunction Severe sepsis acute organ dysfunction type: acute respiratory failure Acute respiratory failure type: unspecified Severe sepsis shock status: without septic shock Qualified Code(s): A41.9 - Sepsis, unspecified organism; R65.20 - Severe sepsis without septic shock; J96.00 - Acute respiratory failure, unspecified whether with hypoxia or hypercapnia SNOMED Code(s): 11136895 (2) MSSA bacteremia Current Visit: Yes Status: Acute Causative organism: MSSA. Source: IVDU. Complicated due to endocarditis, septic emboli to the lungs and kidneys. Blood cultures drawn 07/07/19 are +2 out of 2 sets are MSSA. Repeat blood cultures on 07/08/19 are +2 out of 2 sets. Repeat blood cultures from 07/11/19 are +1 out of 2 sets. Currently on IV cefazolin. SNOMED Code(s): 674229969 (3) Endocarditis Current Visit: Yes Status: Acute Causative organism: MSSA. TTE showed a round, mobile echodensity approximately 1 cm x 1 cm attached to the septal leaflet of the tricuspid valve concerning for vegetation. No endocarditis stigmata noted on exam. The patient has 2 major and 2 minor modified Glasscock criteria. Currently on IV cefazolin. Qualifiers: Endocarditis type: infective Infective endocarditis organism: bacterial Chronicity: acute Qualified Code(s): I33.0 - Acute and subacute infective endocarditis SNOMED Code(s): 78066075 (4) Pneumonia Current Visit: No Status: Acute Likely secondary to septic emboli from MSSA bacteremia. Currently on IV cefazolin. Qualifiers: Pneumonia type: due to unspecified organism Laterality: bilateral Lung location: lower lobe of lung Qualified Code(s): J18.1 - Lobar pneumonia, unspecified organism SNOMED Code(s): 034798210 (5) UTI (urinary tract infection) Current Visit: Yes Status: Acute Urine culture positive for MSSA. Likely seeding of the kidneys from her bacteremia and not the source. Asymptomatic. Currently on IV cefazolin. Qualifiers: Urinary tract infection type: site unspecified Hematuria presence: with hematuria Qualified Code(s): N39.0 - Urinary tract infection, site not specified; R31.9 - Hematuria, unspecified SNOMED Code(s): 76110019 (6) Septic embolism Current Visit: Yes Status: Acute CTA of the chest showed evidence of septic emboli with multiple cavitary lesions with associated feeding vessels, largest seen within the right upper lobe. Secondary to bacteremia and IV drug use. SNOMED Code(s): 309710625, 491500282 (7) Chronic back pain Current Visit: Yes Status: Acute MRI of the thoracic, lumbar, and cervical spines were negative for infectious etiology. Pain management per the primary team. Qualifiers: Back pain location: back pain in unspecified location Back pain laterality: unspecified Qualified Code(s): M54.9 - Dorsalgia, unspecified; G89.29 - Other chronic pain SNOMED Code(s): 742006742 (8) IVDU (intravenous drug user) Current Visit: Yes Status: Acute HIV and Hepatitis profile negative. Withdrawal management per the primary team. SNOMED Code(s): 406917184 (9) Tobacco abuse Current Visit: Yes Status: Acute NRT per the primary team. SNOMED Code(s): 982849301 - Recommendations Recommendations: Repeat blood cultures 2 sets. Withdrawal management in nicotine replacement per the primary team. Continue cefazolin 2 g IV every 8 hours. Duration of treatment depends on the clinical picture, likely 6-8 weeks. Monitor renal function and dose adjust antibiotics. Avoid insertion of long-term IV access until repeat blood cultures are negative 48 hours. patient services assistant to assist with discharge planning. - VTE Documentation of Mechanical Device: Graduated compression elastic hosiery Consult Discharge Plan - Plan Instructions: Diabetes Mellitus Type 2 in Adults (DC) Referrals: Min Pace MD [Primary Care Provider] - - Attending Attestation I have personally performed a face to face evaluation on this patient. I have reviewed and agree with the care plan. History and Exam by me shows: Patient seen and examined. Clinically appears stable much better than yesterday Assessment and plan: Tricuspid endocarditis causative organism MSSA MSSA bacteremia loss culture +1/2 sets 07/11/2019 IV drug user Pneumonia likely secondary to septic emboli from MSSA bacteremia Recommendations: Continue cefazolin 2 g IV every 8 hours Duration of treatment likely 68 weeks We will probably place a midline on Wednesday if patient has no positive blood cu ltures Monitor labs and for drug toxicity
[2019-07-13 12:16] LABS: Basophils % 0.8 %; Eosinophils % 5.4 %; Hematocrit 26.9 % (35.3-44.9); Hemoglobin 8.4 g/dL (11.5-15.4); Immature Granulocytes % 2.2 % (0-4); Mean Corpuscular HGB Conc 31.2 g/dL (31.6-35.5); Mean Corpuscular Hemoglobin 25.1 pg (28.0-33.3); Mean Corpuscular Volume 80.5 fL (83.0-100.0); Mean Platelet Volume 9.6 fL (9.4-12.4); Monocytes % 5.8 %; Platelet Count 436 K/mcL (140-400); Red Blood Count 3.34 M/mcL (3.82-4.97); Red Cell Distribution Width 18.8 % (11.5-14.5); Segmented Neutrophils % 69.8 %; White Blood Count 7.4 K/mcL (4.3-11.1)
[2019-07-13 12:17] LABS: Basophils # 0.1 K/mcL (0.0-0.2); Eosinophils # 0.4 K/mcL (0.0-0.6); Lymphocytes # 1.2 K/mcL (0.6-4.6); Monocytes # 0.4 K/mcL (0.0-1.3); Neutrophils # 5.2 K/mcL (1.6-8.9); Nucleated Red Blood Cells 0.4 /100 WBC (0)
[2019-07-13 12:29] LABS: BUN/Creatinine Ratio 11 (6-26); Blood Urea Nitrogen 6 mg/dL (6-20); Calcium 8.2 mg/dL (8.6-10.3); Carbon Dioxide 29 mEq/L (23-29); Chloride 102 mEq/L (98-107); Glucose 81 mg/dL (70-105); Osmolality,Calculated 283 (280-300); Potassium 4.4 mEq/L (3.5-5.1); Sodium 138 mEq/L (136-145); eGFR For African Americans > 60 (> 60); eGFR For Non-African Americans > 60 (> 60)
[2019-07-13] MEDS: *HR* OxyCODONE Immed Rel 5 MG TABLET PO PRN ×2 (18:17→22:21)
[2019-07-13] MEDS: Insulin DETEMIR 100 UNIT/ML X5UNITS SQ SCH (21:55)
[2019-07-14] MEDS: Ringers Solution, Lactated 1,000 ML IVC SCH ×3 (00:42→23:28)
[2019-07-14] MEDS: Acetaminophen 325 MG TABLET PO PRN (00:46)
[2019-07-14] MEDS: Clotrimazole 1% CRM 15 GM TUBE TP SCH ×3 (00:55→21:39)
[2019-07-14] MEDS: *HR* OxyCODONE Immed Rel 5 MG TABLET PO PRN ×4 (05:28→20:01)
[2019-07-14] MEDS: *HR* Heparin 5,000 UNIT/ML VIAL SQ SCH ×3 (05:28→21:40)
[2019-07-14] MEDS: Insulin LISPRO 300 UNITS/3 ML VIAL SQ SCH ×3 (09:27→17:52)
[2019-07-14] MEDS: Cholecalciferol (D-3) 1,000 UNIT (25MCG) TABLET PO SCH (09:31)
--- NOTE | 2019-07-14 10:50 | Infectious Disease Progress No ---
ID Progress Note Date of Encounter: 07/14/19 Time of Encounter: 10:00 - Subjective Subjective: Patient seen and examined. No acute events noted overnight. Patient complains of lower back pain that is improved today. Denies fevers, chills, rigors. Denies chest pain, shortness of breath, or cough. Denies nausea, vomiting, diarrhea, or constipation. Denies abdominal pain or urinary complaints. Denies oral thrush or skin rashes. States her last bowel movement was yesterday. States her appetite is very good. States she does not want to have blood drawn this morning because she feels like a pin cushion. - Objective CBC & Chem 7: 07/13/19 11:15 07/13/19 11:15 - Exam Vitals: Temp Pulse Resp BP Pulse Ox 97.4 F L 83 18 111/62 93 07/14/19 07:31 07/14/19 07:31 07/14/19 07:31 07/14/19 07:31 07/14/19 09:44 Exam: Head: Atraumatic, normal inspection, normocephalic. Eye: EOMI, PERRLA, no scleral icterus noted. No subconjunctival hemorrhage noted. ENT: Mucous membranes moist. No odontogenic infection noted. Neck: Normal inspection, no meningismus. Respiratory: Clear to auscultation. No rales, respiratory distress, rhonchi, or wheezes noted. Cardiovascular: Regular rate and rhythm, S1 and S2 audible. No murmurs, rubs, or gallops. GI: Soft, nondistended, normal bowel sounds. Nontender. Extremities: No joint swelling, pedal edema, or tenderness noted. Neurological: Alert, oriented 3, no focal deficits. Psychiatric: normal affect, normal mood. Skin: Dry, intact, warm. Normal color. No rashes. No endocarditis stigmata noted. - Assessment and Plan (1) Sepsis Current Visit: Yes Status: Acute The patient had 3 SIRS criteria on admission. Secondary to MSSA bacteremia complicated with endocarditis of the tricuspid valve and septic emboli to the lungs. Improved. Blood cultures drawn 07/07/19 are +2 out of 2 sets are MSSA. Repeat blood cultures on 07/08/19 are +2 out of 2 sets. Repeat blood cultures from 07/11/19 are +1 out of 2 sets. Repeat blood culture drawn 07/13/19 are pending x 1 set. The patient refused any further lab sticks to get the second set. Qualifiers: Sepsis type: sepsis due to unspecified organism Sepsis acute organ dysfunction status: with acute organ dysfunction Severe sepsis acute organ dysfunction type: acute respiratory failure Acute respiratory failure type: unspecified Severe sepsis shock status: without septic shock Qualified Code(s): A41.9 - Sepsis, unspecified organism; R65.20 - Severe sepsis without septic shock; J96.00 - Acute respiratory failure, unspecified whether with hypoxia or hypercapnia SNOMED Code(s): 84867329 (2) MSSA bacteremia Current Visit: Yes Status: Acute Causative organism: MSSA. Source: IVDU. Complicated due to endocarditis, septic emboli to the lungs and kidneys. Blood cultures drawn 07/07/19 are +2 out of 2 sets are MSSA. Repeat blood cultures on 07/08/19 are +2 out of 2 sets. Repeat blood cultures from 07/11/19 are +1 out of 2 sets. Repeat blood culture drawn 07/13/19 are pending x 1 set. The patient refused to have another lab stick to get the second set. Currently on IV cefazolin. SNOMED Code(s): 266726709 (3) Endocarditis Current Visit: Yes Status: Acute Causative organism: MSSA. TTE showed a round, mobile echodensity approximately 1 cm x 1 cm attached to the septal leaflet of the tricuspid valve concerning for vegetation. No endocarditis stigmata noted on exam. The patient has 2 major and 2 minor modified Wheeler criteria. Currently on IV cefazolin. Qualifiers: Endocarditis type: infective Infective endocarditis organism: bacterial Chronicity: acute Qualified Code(s): I33.0 - Acute and subacute infective endocarditis SNOMED Code(s): 22601529 (4) Pneumonia Current Visit: No Status: Acute Likely secondary to septic emboli from MSSA bacteremia. Currently on IV cefazolin. Qualifiers: Pneumonia type: due to unspecified organism Laterality: bilateral Lung location: lower lobe of lung Qualified Code(s): J18.1 - Lobar pneumonia, unspecified organism SNOMED Code(s): 465032184 (5) UTI (urinary tract infection) Current Visit: Yes Status: Acute Urine culture positive for MSSA. Likely seeding of the kidneys from her bacteremia and not the source. Asymptomatic. Currently on IV cefazolin. Qualifiers: Urinary tract infection type: site unspecified Hematuria presence: with hematuria Qualified Code(s): N39.0 - Urinary tract infection, site not specified; R31.9 - Hematuria, unspecified SNOMED Code(s): 08728298 (6) Septic embolism Current Visit: Yes Status: Acute CTA of the chest showed evidence of septic emboli with multiple cavitary lesions with associated feeding vessels, largest seen within the right upper lobe. Secondary to bacteremia and IV drug use. SNOMED Code(s): 371343134, 859394563 (7) Chronic back pain Current Visit: Yes Status: Acute MRI of the thoracic, lumbar, and cervical spines were negative for infectious etiology. Pain management per the primary team. Qualifiers: Back pain location: back pain in unspecified location Back pain laterality: unspecified Qualified Code(s): M54.9 - Dorsalgia, unspecified; G89.29 - Other chronic pain SNOMED Code(s): 532516212 (8) IVDU (intravenous drug user) Current Visit: Yes Status: Acute HIV and Hepatitis profile negative. Withdrawal management per the primary team. SNOMED Code(s): 347501840 (9) Tobacco abuse Current Visit: Yes Status: Acute NRT per the primary team. SNOMED Code(s): 801929464 - Recommendations Recommendations: Await repeat blood cultures. Withdrawal management and nicotine replacement per the primary team. Continue cefazolin 2 g IV every 8 hours. Duration of treatment depends on the clinical picture, likely 6-8 weeks. Monitor renal function and dose adjust antibiotics. Avoid insertion of long-term IV access until repeat blood cultures are negative 48 hours. human services manager to assist with discharge planning. - VTE Documentation of Mechanical Device: Graduated compression elastic hosiery Consult Discharge Plan - Plan Instructions: Diabetes Mellitus Type 2 in Adults (DC) Referrals: Min Pace MD [Primary Care Provider] -
--- NOTE | 2019-07-14 12:22 | Internal Med Progress Note ---
Hospitalist Progress Note - Encounter Date of Encounter: 07/14/19 Time of Encounter: 09:45 - Subjective Interval History: Patient was seen at bedside. Denies fever, chills, rigors overnight. Denies nausea, vomiting. Denies chest pain or shortness of breath. Admits feeling better than yesterday. Still has low back pain. Currently on antibiotics. Roger flores mentioned that she is not a current smoker and she does not want nicotine patches. No other overnight events. - Exam Vitals: Temp Pulse Resp BP Pulse Ox 97.9 F 87 18 106/63 96 07/14/19 11:33 07/14/19 11:33 07/14/19 11:33 07/14/19 11:33 07/14/19 11:33 Exam: General: Alert and oriented, no physical distress, able to follow commands. HEENT: No thyromegaly, no lymphadenopathy, no discharge. Eyes: No discharge. Normal conjuctiva, no icterus Respiratory: Normal vesicular breathing, no added sounds, breathing equal in both sides. CVS: Normal heart sounds, no murmurs, regular rhthm, no edema Extremities: No peripheral edema, peripheral pulses intact. Lymph nodes: No lymphadenopathy Gastrointestinal: Soft, nontender abdomen, normal abdominal sounds. No distention noted. Genitourinary: No paravertebral tenderness. Skin: Track gilmore noted Neurological: Alert and oriented. No focal deficits. Cranial nerves II-XII intact. - Assessment and Plan (1) Endocarditis Current Visit: Yes Status: Acute Assessment and Plan: Blood cultures and urine cultures(07/07) were positive for staphylococcal aureus (MSSA) at the presentation in all botles. TTE consistent with vegetations at the tricuspid valve and evident of infective endocarditis. Repeat Blood cultures(07/11) also growing Staphylococcus aureus(MSSA) in 1/2 bottles. Currently patient is on IV cefazolin 2g Q8H ID on board. Additional blood cultures obtianed on 07/13/19, are pending but have been negaitve so far. Will need midline palcement, once blood cultures negative for 48 H Paitent agreeable to [facility], totla duration of 8 weeks of IV antibiotics. (2) Sepsis Current Visit: Yes Status: Acute Assessment and Plan: MSSA endocarditis Plan mentioned above (3) Acute on chronic anemia Current Visit: Yes Status: Acute Assessment and Plan: Presented with hemoglobin of 6.6, status post 2 units of blood transfusion, c urrently hemoglobin stable around 8. GI was consulted, recommended to hold off on EGD and colonoscopy at this point. No interventions plannned at this point (4) UTI (urinary tract infection) Current Visit: Yes Status: Acute Assessment and Plan: UA suggestive for UTI Cultures revealed staph aureus MSSA, on cefazolin for the endocarditis. Continue the current management. (5) Cervical stenosis of spinal canal Current Visit: Yes Status: Acute Assessment and Plan: Noted on cervical spine MRI-C5-6 disc protrusion as described with resulting moderate central canal stenosis. No evidence of osteomyelitis in the cervical spine. She will need outpatient follow-up with neuro surgeon, continue oxycodone for now as needed for pain (6) Polysubstance abuse Current Visit: Yes Status: Acute Assessment and Plan: Admitted IV drug abuse Advised to avoid the IV drugs May benefot from rehab Explained to her that she can have further complications wiht further morbidity and increased risk of mortality if she continues to use IV drugs (7) Cavitary lesion of lung Current Visit: Yes Status: Acute Assessment and Plan: In the setting of septic emboli from endocarditis will need repeat CT of the chest in 6 months to document resolution (8) Tobacco abuse Current Visit: Yes Status: Acute Assessment and Plan: Encourage cessation (9) Vitamin D deficiency Current Visit: Yes Status: Acute Assessment and Plan: Vitamin D 5,000 units started, vitamin D level of 16 (10) Chronic back pain Current Visit: Yes Status: Acute Assessment and Plan: Continue oxycodoen COntinue lidocaine patches - Time Spent with Patient Total time spent is greater than 50% in coordination of care (as documented) at patient's floor/unit and/or counseling patient: Internal Medicine: Result - Labs CBC & Chem 7: 07/13/19 11:15 07/13/19 11:15 Labs: Short CBC 07/13/19 Range/Units 11:15 WBC 7.4 (4.3-11.1) K/mcL Hgb 8.4 L (11.5-15.4) g/dL Hct 26.9 L (35.3-44.9) % Plt Count 436 H (140-400) K/mcL Neutrophils # 5.2 (1.6-8.9) K/mcL BMP 07/13/19 11:15 Sodium 138 Potassium 4.4 Chloride 102 Carbon Dioxide 29 BUN 6 Creatinine 0.55 L Glucose 81 Calcium 8.2 L - ABG Interpretation ABG results: PT/INR, D-dimer PT 18.8 Seconds (9.4-12.1) H 07/08/19 02:18 - VTE Documentation of Mechanical Device: Graduated compression elastic hosiery Consult Discharge Plan - Plan Instructions: Diabetes Mellitus Type 2 in Adults (DC) Referrals: Min Pace MD [Primary Care Provider] - (1) Endocarditis Qualifiers: Endocarditis type: infective Infective endocarditis organism: bacterial Chronicity: acute Qualified Code(s): I33.0 - Acute and subacute infective endocarditis (2) Sepsis Qualifiers: Sepsis type: sepsis due to unspecified organism Sepsis acute organ d ysfunction status: with acute organ dysfunction Severe sepsis acute organ dysfunction type: acute respiratory failure Acute respiratory failure type: unspecified Severe sepsis shock status: without septic shock Qualified Code(s): A41.9 - Sepsis, unspecified organism; R65.20 - Severe sepsis without septic shock; J96.00 - Acute respiratory failure, unspecified whether with hypoxia or hypercapnia (4) UTI (urinary tract infection) Qualifiers: Urinary tract infection type: site unspecified Hematuria presence: with hematuria Qualified Code(s): N39.0 - Urinary tract infection, site not specified; R31.9 - Hematuria, unspecified (10) Chronic back pain Qualifiers: Back pain location: back pain in unspecified location Back pain laterality: unspecified Qualified Code(s): M54.9 - Dorsalgia, unspecified; G89.29 - Other c hronic pain
[2019-07-14] MEDS: Insulin DETEMIR 100 UNIT/ML X5UNITS SQ SCH (21:39)
[2019-07-15] MEDS: *HR* Heparin 5,000 UNIT/ML VIAL SQ SCH ×3 (03:31→21:46)
[2019-07-15] MEDS: *HR* OxyCODONE Immed Rel 5 MG TABLET PO PRN ×4 (03:31→21:47)
[2019-07-15] MEDS: Insulin LISPRO 300 UNITS/3 ML VIAL SQ SCH ×3 (09:11→18:02)
[2019-07-15] MEDS: Cholecalciferol (D-3) 1,000 UNIT (25MCG) TABLET PO SCH (09:11)
[2019-07-15] MEDS: Clotrimazole 1% CRM 15 GM TUBE TP SCH ×2 (09:12→21:48)
--- NOTE | 2019-07-15 10:58 | Internal Med Progress Note ---
Hospitalist Progress Note - Encounter Date of Encounter: 07/15/19 Time of Encounter: 09:00 - Subjective Interval History: Seen at bedside. Still complainnig of mild pain in the back, denies fever, chills, rigors. Denies chest pain or SOB. Has been feeling better than before. No overnigth events. Blood cultures have been negative so far. - Exam Vitals: Temp Pulse Resp BP Pulse Ox 98.3 F 93 16 102/62 97 07/15/19 10:44 07/15/19 10:44 07/15/19 10:44 07/15/19 10:44 07/15/19 10:44 Exam: General: Alert and oriented, no physical distress, able to follow commands. Respiratory: Normal vesicular breathing, no added sounds, breathing equal in both sides. CVS: Normal heart sounds, no murmurs, regular rhthm, no edema Extremities: No peripheral edema, peripheral pulses intact. Lymph nodes: No lymphadenopathy Gastrointestinal: Soft, nontender abdomen, normal abdominal sounds. No distention noted. Genitourinary: No paravertebral tenderness. Skin: Track gilmore noted Neurological: Alert and oriented. No focal deficits. Cranial nerves II-XII intact. - Assessment and Plan (1) Endocarditis Current Visit: Yes Status: Acute Assessment and Plan: Blood cultures and urine cultures(07/07) were positive for staphylococcal aureus (MSSA) at the presentation in all botles. TTE consistent with vegetations at the tricuspid valve and evident of infective endocarditis. Repeat Blood cultures(07/11) also growing Staphylococcus aureus(MSSA) in 1/2 [place] ttles. Currently patient is on IV cefazolin 2g Q8H ID on board. Additional blood cultures obtianed on 07/13/19, are pending but have been negaitve so far. Will need midline palcement, once blood cultures negative for 48 H, likley to happen on wednesday Paitent agreeable to go to the [facility], totla duration of 8 weeks of IV antibiotics. (2) Sepsis Current Visit: Yes Status: Acute Assessment and Plan: MSSA endocarditis Plan mentioned above (3) Acute on chronic anemia Current Visit: Yes Status: Acute Assessment and Plan: Presented with hemoglobin of 6.6, status post 2 units of blood transfusion, currently hemoglobin stable around 8. GI was consulted, recommended to hold off on EGD and colonoscopy at this point. No interventions plannned at this point (4) UTI (urinary tract infection) Current Visit: Yes Status: Acute Assessment and Plan: UA suggestive for UTI Cultures revealed staph aureus MSSA, on cefazolin for the endocarditis. Continue the current management. (5) Cervical stenosis of spinal canal Current Visit: Yes Status: Acute Assessment and Plan: Noted on cervical spine MRI-C5-6 disc protrusion as described with resulting moderate central canal stenosis. No evidence of osteomyelitis in the cervical spine. She will need outpatient follow-up with neuro surgeon, continue oxycodone for now as needed for pain. Decresae the frequrncy. (6) Polysubstance abuse Current Visit: Yes Status: Acute Assessment and Plan: Admitted IV drug abuse Advised to avoid the IV drugs May benefot from rehab Explained to her that she can have further complications wiht further morbidity and increased risk of mortality if she continues to use IV drugs (7) Cavitary lesion of lung Current Visit: Yes Status: Acute Assessment and Plan: In the setting of septic emboli from endocarditis will need repeat CT of the chest in 6 months to document resolution (8) Vitamin D deficiency Current Visit: Yes Status: Acute Assessment and Plan: Vitamin D 5,000 units started, vitamin D level of 16 (9) Chronic back pain Current Visit: Yes Status: Acute Assessment and Plan: Continue oxycodoen COntinue lidocaine patches - Time Spent with Patient Total time spent is greater than 50% in coordination of care (as documented) at patient's floor/unit and/or counseling patient: Internal Medicine: Result - Labs CBC & Chem 7: 07/13/19 11:15 07/13/19 11:15 - ABG Interpretation ABG results: PT/INR, D-dimer PT 18.8 Seconds (9.4-12.1) H 07/08/19 02:18 - VTE Documentation of Mechanical Device: Graduated compression elastic hosiery Consult Discharge Plan - Plan Instructions: Diabetes Mellitus Type 2 in Adults (DC) Referrals: Min Pace MD [Primary Care Provider] - (1) Endocarditis Qualifiers: Endocarditis type: infective Infective endocarditis organism: bacterial Chronicity: acute Qualified Code(s): I33.0 - Acute and subacute infective endocarditis (2) Sepsis Qualifiers: Sepsis type: sepsis due to unspecified organism Sepsis acute organ dysfunctio n status: with acute organ dysfunction Severe sepsis acute organ dysfunction type: acute respiratory failure Acute respiratory failure type: unspecified Severe sepsis shock status: without septic shock Qualified Code(s): A41.9 - Sepsis, unspecified organism; R65.20 - Severe sepsis without septic shock; J96.00 - Acute respiratory failure, unspecified whether with hypoxia or hypercap jesse (4) UTI (urinary tract infection) Qualifiers: Urinary tract infection type: site unspecified Hematuria presence: with hematuria Qualified Code(s): N39.0 - Urinary tract infection, site not specified; R31.9 - Hematuria, unspecified (9) Chronic back pain Qualifiers: Back pain location: back pain in unspecified location Back pain laterality: unspecified Qualified Code(s): M54.9 - Dorsalgia, unspecified; G89.29 - Other chronic pain
[2019-07-15] MEDS: Insulin DETEMIR 100 UNIT/ML X5UNITS SQ SCH (21:48)
[2019-07-16] MEDS: *HR* Heparin 5,000 UNIT/ML VIAL SQ SCH ×3 (06:33→21:01)
[2019-07-16] MEDS: *HR* OxyCODONE Immed Rel 5 MG TABLET PO PRN ×2 (07:38→13:31)
[2019-07-16] MEDS: Cholecalciferol (D-3) 1,000 UNIT (25MCG) TABLET PO SCH (07:38)
[2019-07-16] MEDS: Insulin LISPRO 300 UNITS/3 ML VIAL SQ SCH ×3 (07:48→17:37)
[2019-07-16] MEDS: Clotrimazole 1% CRM 15 GM TUBE TP SCH ×2 (07:53→21:01)
--- NOTE | 2019-07-16 11:40 | Internal Med Progress Note ---
Hospitalist Progress Note - Encounter Date of Encounter: 07/16/19 Time of Encounter: 08:45 - Subjective Interval History: Patient is seen at bedside. Patient is looking more in distress, sweaty, and complaining of pain in the back. Boyfriend is not at bedside today. Patient had a similar out to 2 days before when that time she was not visited by the b oyfriend. Her dose of oxycodone was also reduced yesterday. Seems like she is withdrawing from opiates. Had a mild temperature of 100 overnight. - Exam Vitals: Temp Pulse Resp BP Pulse Ox 98.2 F 74 16 119/70 96 07/16/19 08:26 07/16/19 08:26 07/16/19 08:26 07/16/19 08:26 07/16/19 08:26 Exam: General: Alert and oriented, mild physical distress, able to follow commands. Respiratory: Normal vesicular breathing, no added sounds, breathing equal in both sides. CVS: Normal heart sounds, no murmurs, regular rhthm, no edema Extremities: No peripheral edema, peripheral pulses intact. Lymph nodes: No lymphadenopathy Gastrointestinal: Soft, nontender abdomen, normal abdominal sounds. No distention noted. Genitourinary: No paravertebral tenderness. Skin: Track gilmore noted Neurological: Alert and oriented. No focal deficits. Cranial nerves II-XII intact. - Assessment and Plan (1) Endocarditis Current Visit: Yes Status: Acute Assessment and Plan: Blood cultures and urine cultures(07/07) were positive for staphylococcal aureus (MSSA) at the presentation in all botles. TTE consistent with vegetations at the tricuspid valve and evident of infective endocarditis. Repeat Blood cultures(07/11) also growing Staphylococcus aureus(MSSA) in 1/2 bottles. Currently patient is on IV cefazolin 2g Q8H ID on board. Additional blood cultures obtianed on 07/13/19, are pending but have been negaitve so far. Will need midline palcement, once blood cultures negative for 48 H, dhiraj to h appen on wednesday Paitent agreeable to go to the [facility], totla duration of 8 weeks of IV antibiotics. Considering pt had mild temp, hadley repeat blood cultures, (2) Sepsis Current Visit: Yes Status: Acute Assessment and Plan: MSSA endocarditis Plan mentioned above (3) Acute on chronic anemia Current Visit: Yes Status: Acute Assessment and Plan: Presented with hemoglobin of 6.6, status post 2 units of blood transfusion, currently hemoglobin stable around 8. GI was consulted, recommended to hold off on EGD and colonoscopy at this point. No interventions plannned at this point (4) UTI (urinary tract infection) Current Visit: Yes Status: Acute Assessment and Plan: UA suggestive for UTI Cultures revealed staph aureus MSSA, on cefazolin for the endocarditis. Continue the current management. (5) Cervical stenosis of spinal canal Current Visit: Yes Status: Acute Assessment and Plan: Noted on cervical spine MRI-C5-6 disc protrusion as described with resulting moderate central canal stenosis. No evidence of osteomyelitis in the cervical spine. She will need outpatient follow-up with neuro surgeon, continue oxycodone for now as needed for pain. (6) Polysubstance abuse Current Visit: Yes Status: Acute Assessment and Plan: Admitted IV drug abuse Advised to avoid the IV drugs May benefot from rehab Explained to her that she can have further complications wiht further morbidity and increased risk of mortality if she continues to use IV drugs Seems like patient is withdrawing from the opioids today. Boyfriend is not at bedside. The slight possibility that the patient has been having opiates while in the hospital, considering that she is withdrawing today whn she is ot visited by the boyfriend. THere was a similar pattern 2-3 days back. We will try to avoid getting current situation. Clonidine diphenhydramine and loperamide ordered for opiate withdrawal. (7) Cavitary lesion of lung Current Visit: Yes Status: Acute Assessment and Plan: In the setting of septic emboli from endocarditis will need repeat CT of the chest in 6 months to document resolution (8) Vitamin D deficiency Current Visit: Yes Status: Acute Assessment and Plan: Vitamin D 5,000 units started, vitamin D level of 16 (9) Chronic back pain Current Visit: Yes Status: Acute Assessment and Plan: Continue oxycodoen COntinue lidocaine patches - Time Spent with Patient Total time spent is greater than 50% in coordination of care (as documented) at patient's floor/unit and/or counseling patient: Internal Medicine: Result - Labs CBC & Chem 7: 07/13/19 11:15 07/13/19 11:15 - ABG Interpretation ABG results: PT/INR, D-dimer PT 18.8 Seconds (9.4-12.1) H 07/08/19 02:18 - VTE Documentation of Mechanical Device: Graduated compression elastic hosiery Consult Discharge Plan - Plan Instructions: Diabetes Mellitus Type 2 in Adults (DC) Referrals: Min Pace MD [Primary Care Provider] - ___ (1) Endocarditis Qualifiers: Endocarditis type: infective Infective endocarditis organism: bacterial Chronicity: acute Qualified Code(s): I33.0 - Acute and subacute infective endocarditis (2) Sepsis Qualifiers: Sepsis type: sepsis due to unspecified organism Sepsis acute organ dysfunction status: with acute organ dysfunction Severe sepsis acute organ dysfunction type: acute respiratory failure Acute respiratory failure type: unspecified Severe sepsis shock status: without septic shock Qualified Code(s): A41.9 - Sepsis, unspecified organism; R65.20 - Severe sepsis without septic shock; J96.00 - Acute respiratory failure, unspecified whether with hypoxia or hypercapnia (4) UTI (urinary tract infection) Qualifiers: Urinary tract infection type: site unspecified Hematuria presence: with hematuria Qualified Code(s): N39.0 - Urinary tract infection, site not s pecified; R31.9 - Hematuria, unspecified (9) Chronic back pain Qualifiers: Back pain location: back pain in unspecified location Back pain laterality: unspecified Qualified Code(s): M54.9 - Dorsalgia, unspecified; G89.29 - Other chronic pain
[2019-07-16] MEDS: cloNIDine HCl 0.1 MG TABLET PO PRN ×2 (12:23→18:25)
[2019-07-16 16:32] LABS: Hematocrit 29.5 % (35.3-44.9); Hemoglobin 8.9 g/dL (11.5-15.4); Mean Corpuscular HGB Conc 30.2 g/dL (31.6-35.5); Mean Corpuscular Hemoglobin 25.4 pg (28.0-33.3); Mean Corpuscular Volume 84.3 fL (83.0-100.0); Mean Platelet Volume 8.6 fL (9.4-12.4); Platelet Count 434 K/mcL (140-400); Red Cell Distribution Width 20.1 % (11.5-14.5); White Blood Count 5.2 K/mcL (4.3-11.1)
[2019-07-16 16:52] LABS: BUN/Creatinine Ratio 19 (6-26); Blood Urea Nitrogen 11 mg/dL (6-20); Calcium 8.6 mg/dL (8.6-10.3); Carbon Dioxide 29 mEq/L (23-29); Chloride 100 mEq/L (98-107); Glucose 117 mg/dL (70-105); Osmolality,Calculated 284 (280-300); Sodium 137 mEq/L (136-145); eGFR For African Americans > 60 (> 60); eGFR For Non-African Americans > 60 (> 60)
--- NOTE | 2019-07-16 19:55 | Event Note ---
Date of Encounter: 07/16/19 Time of Encounter: 19:50 Notified by nurse of patient finding patient injecting unknown substance. Will order bedside sitter, no new visitors, urine toxicology screen, hold sedating medications, continuous cardiac monitoring and pulse oximetry.
[2019-07-16] MEDS: Insulin DETEMIR 100 UNIT/ML X5UNITS SQ SCH (21:01)
[2019-07-16 22:22] VITALS: BP 92/54
--- NOTE | 2019-07-25 17:24 | Discharge Summary ---
Date of Encounter: 07/16/19 Time of Encounter: 11:35 - Discharge Diagnosis (1) Endocarditis Priority: Secondary Status: Acute Qualifiers: Endocarditis type: infective Infective endocarditis organism: bacterial Chronicity: acute Qualified Code(s): I33.0 - Acute and subacute infective endocarditis (2) Sepsis Priority: Primary Status: Acute Qualifiers: Sepsis type: sepsis due to unspecified organism Sepsis acute organ dysfunct ion status: with acute organ dysfunction Severe sepsis acute organ dysfunction type: acute respiratory failure Acute respiratory failure type: unspecified Severe sepsis shock status: without septic shock Qualified Code(s): A41.9 - Sepsis, unspecified organism; R65.20 - Severe sepsis without septic shock; J96.00 - Acute respiratory failure, unspecified whether with hypoxia or hypercapnia (3) Acute on chronic anemia Priority: Secondary Status: Acute (4) UTI (urinary tract infection) Priority: Secondary Status: Acute Qualifiers: Urinary tract infection type: site unspecified Hematuria presence: with hematuria Qualified Code(s): N39.0 - Urinary tract infection, site not specified; R31.9 - Hematuria, unspecified (5) Cervical stenosis of spinal canal Priority: Secondary Status: Acute (6) Polysubstance abuse Priority: Secondary Status: Acute (7) Cavitary lesion of lung Priority: Secondary Status: Acute (8) Vitamin D deficiency Priority: Secondary Status: Acute (9) Chronic back pain Priority: Secondary Status: Acute Qualifiers: Back pain location: back pain in unspecified location Back pain laterality: unspecified Qualified Code(s): M54.9 - Dorsalgia, unspecified; G89.29 - Other chronic pain Hospital course: Ms. Olmedo is a 33 year old female with a medical history significant for IV drug abuse, presented to the hospital, feeling unwell, had high fever and chills at home. Patient was diagnosed with infective endocarditis with MSSA. Patient was being treated with IV antibiotics and the plan was to discharge the patient to nursing care facility for the continuation of IV antibiotics. She was in the hospital for the placement of midline and final cultures to be negative. In the morning of 07/16/2019 and she was seen during that, it was noted that the patient was actively withdrawing from opiates even though she was already taking oxycodone for her pain. There were concerns that the patient is using IV drugs in the hospital. In the afternoon, patient was found to be injecting unknown substance. Bedside sitter was ordered, and toxicology was ordered and it was advised that no new visitors should be coming to see the patient without seeing the nursing department. Patient decided to leave AMA. She was explained about the risks of leaving AGAINST MEDICAL ADVICE which include further morbidity, and worsened outcomes including because of underlying endocarditis. Patient had the capacity to make the decisions and she decided to leave AMA. She signed the AMA papers. Night team counseled the patient. - Time Spent with Patient Total time spent providing and/or coordinating discharge services: 10 minutes - Discharge Medications Prescriptions: Continued No Known Home Drugs 1 each .ROUTE AD each Home Medications: No Known Home Drugs 07/08/19 [History] Allergies/Adverse Reactions: Allergy/AdvReac Type Severity Reaction Status Date / Time No Known Allergies Allergy Verified 07/08/19 13:59 Date of admission: 07/08/19 01:45 Primary care physician: Min Pace MD Consults: 07/08/19 06:34 Consult to Gastroenterology [CONS] Routine Consulting Provider: Gastroenterology Kala Reason for Consult: Acute blood loss anemia with suspected GI bleed Call Completed: No 07/09/19 17:13 Consult to Infectious Diseases [CONS] Routine Consulting Provider: Infectious Disease Kala Reason for Consult: History of IV drug use, tricuspid valve endocarditis Call Completed: No 07/09/19 17:49 Consult to Bead Wrapper [CONS] Routine Reason for SW Consult: discharge planning. pt may need ECF placement for IV ATB's 07/16/19 17:43 Consult to Physical Therapy [CONS] Routine Comment: Evaluate, develop and implement POC Reason for Consult: Doctors request for weakness Does patient have active BEDREST order?: No Is patient medically & hemodynamically stable?: No 07/16/19 17:45 Consult to Occupational Therapy [CONS] Routine Comment: Evaluate, develop and implement POC Reason for Consult: weakness per Dr Does patient have active BEDREST order?: No Is patient medically & hemodynamically stable?: No Patient assessed for mobility or mobilized this visit?: Yes - Constitutional Vitals: Temp Pulse Resp BP Pulse Ox 99.0 F 88 17 92/54 96 07/16/19 20:40 07/16/19 22:21 07/16/19 22:21 07/16/19 22:21 07/16/19 22:21 Exam: General: Alert and oriented, mild physical distress, able to follow commands. Respiratory: Normal vesicular breathing, no added sounds, breathing equal in both sides. CVS: Normal heart sounds, no murmurs, regular rhthm, no edema Extremities: No peripheral edema, peripheral pulses intact. Lymph nodes: No lymphadenopathy Gastrointestinal: Soft, nontender abdomen, normal abdominal sounds. No distention noted. Genitourinary: No paravertebral tenderness. Skin: Track gilmore noted Neurological: Alert and oriented. No focal deficits. Cranial nerves II-XII intact. - Patient Status Disposition: Left Against Medical Advice Condition: Critical - Discharge Instructions Instructions: Diabetes Mellitus Type 2 in Adults (DC) Follow Up With: Min Pace MD [Primary Care Provider] - - VTE Documentation of Mechanical Device: Graduated compression elastic hosiery
== END 2019-07-16 23:27 | disposition left against medical advice (07) | DRG 720 ==
LOC: 2ANU 20:05 → EMEROOARM 20:05 → SUATTDRO 07-08 01:45 → OBSVTOIN 07-08 01:45 → 2ANU 07-08 02:15
PROVIDERS: ADMIT Internal Medicine; ATTEND Internal Medicine

== ENCOUNTER 2021-12-30 17:26 | Inpatient (IN) ==
[2021-12-30] MEDS ORDERED: Acetaminophen 325 MG TABLET PO PRN (20:52)
[2021-12-30] MEDS ORDERED: Ondansetron 4 MG/2 ML VIAL IVP PRN (20:52)
[2021-12-30] MEDS ORDERED: Naloxone 0.4 MG/ML INJ IVP PRN (20:52)
[2021-12-30] MEDS ORDERED: Ipratropium/Albuterol Neb 3 ML IH PRN (21:02)
[2021-12-30] MEDS: Ketorolac 30 MG/ML VIAL IVP PRN (22:03)
[2021-12-30] MEDS: 0.9 % Sodium Chloride 1,000 ML IVC SCH (22:06)
[2021-12-30] MEDS ORDERED: *HR* Metoprolol 5 MG/5 ML VIAL IVP ONE (22:40)
[2021-12-30] MEDS ORDERED: 0.9 % Sodium Chloride 500 ML IVC PRN (23:46)
[2021-12-31] MEDS: Cefepime HCl 1,000 MG in 0.9 % Sodium Chloride Mini Bag 100 ML IVPB SCH ×2 (00:12→08:32)
[2021-12-31 03:22] LABS: Basophils % 0.4 %; Eosinophils % 0.1 %; Hematocrit 28.9 % (35.3-44.9); Hemoglobin 9.3 g/dL (11.5-15.4); Immature Granulocytes % 0.3 % (0-4); Lymphocytes # 0.9 K/mcL (0.6-4.6); Lymphocytes % 11.9 %; Mean Corpuscular HGB Conc 32.2 g/dL (31.6-35.5); Mean Corpuscular Hemoglobin 28.4 pg (28.0-33.3); Mean Corpuscular Volume 88.4 fL (83.0-100.0); Mean Platelet Volume 9.7 fL (9.4-12.4); Monocytes # 0.3 K/mcL (0.0-1.3); Monocytes % 3.7 %; Neutrophils # 6.6 K/mcL (1.6-8.9); Platelet Count 198 K/mcL (140-400); Red Blood Count 3.27 M/mcL (3.82-4.97); Red Cell Distribution Width 18.6 % (11.5-14.5); Segmented Neutrophils % 83.6 %; White Blood Count 7.9 K/mcL (4.3-11.1)
[2021-12-31 03:25] LABS: Alanine Aminotransferase 202 Units/L (7-52); Alkaline Phosphatase 339 Units/L (34-104); Aspartate Amino Transferase 75 Units/L (13-39); BUN/Creatinine Ratio 20 (6-26); Bilirubin,Direct 1.1 mg/dL (0.0-0.2); Bilirubin,Indirect 1.1 mg/dL (0.0-1.0); Bilirubin,Total 2.2 mg/dL (0.3-1.0); Blood Urea Nitrogen 13 mg/dL (6-20); C-Reactive Protein 115 mg/L (Less than 10); Calcium 7.6 mg/dL (8.6-10.3); Carbon Dioxide 23 mEq/L (23-29); Chloride 111 mEq/L (98-107); Chol/HDL Ratio 2.3 (0-4.9); Cholesterol 154 mg/dL (< 200); Glucose 124 mg/dL (70-105); HDL Cholesterol 68 mg/dL (40-59); LDL Cholesterol,Calculated 69 mg/dL (< 100); Magnesium 1.7 mg/dL (1.6-2.6); Osmolality,Calculated 290 (280-300); Phosphorous 3.1 mg/dL (2.7-4.5); Potassium 3.1 mEq/L (3.5-5.1); Sodium 139 mEq/L (136-145); Triglycerides 85 mg/dL (< 150); eGFR For African Americans > 60 (> 60); eGFR For Non-African Americans > 60 (> 60)
[2021-12-31 03:26] LABS: INR 1.5; Prothrombin Time 16.5 Seconds (9.4-12.1)
[2021-12-31 03:38] LABS: Thyroid Stimulating Hormone 0.252 mcIU/mL (0.340-5.600)
[2021-12-31] MEDS ORDERED: Calcium Gluconate 1gm/50mL 1 GM/50 ML BAG IVPB ONE (04:03)
[2021-12-31 04:27] LABS: Bacteria,Urine Few per hpf (None-Few); Bilirubin,Urine Negative (Negative); Blood,Urine Small (Negative); Clarity,Urine Clear (Clear); Color,Urine Yellow (Yellow); Glucose,Urine (UA) Normal (Normal); Ketones,Urine Trace mg/dL (Negative); Leukocyte Esterase,Urine Small (Negative); Mucus,Urine Few per lpf (None-Few); Nitrite,Urine Negative (Negative); Protein,Urine 50 mg/dL (Neg-Trace); Specific Gravity,Urine > 1.030 (1.010-1.025); Urobilinogen,Urine Normal (Normal); WBC,Urine 15-30 per hpf (0-3)
[2021-12-31 04:36] LABS: Amphetamine Screen,Urine Negative ng/mL (Cutoff=1000); Barbiturate Screen,Urine Negative ng/mL (Cutoff=200); Benzodiazepines Screen,Urine Negative ng/mL (Cutoff=200); Cannabinoid Screen,Urine Negative ng/mL (Cutoff = 50); Cocaine Screen,Urine Negative ng/mL (Cutoff= 300); Opiate Screen,Urine Negative ng/mL (Cutoff=300); Phencyclidine Screen,Urine Negative ng/mL (Cutoff=25)
[2021-12-31 05:33] LABS: Hepatitis B Surface Antigen Nonreactive (Nonreactive)
[2021-12-31 06:02] LABS: HIV-1&2 Antibody & p24 Ag Nonreactive (Nonreactive)
[2021-12-31 06:04] LABS: Hepatitis A Antibody IgM Nonreactive (Nonreactive)
[2021-12-31 07:59] LABS: Hepatitis C Virus Antibody Reactive (Nonreactive)
[2021-12-31] MEDS: 0.9 % Sodium Chloride 1,000 ML IVC SCH (08:33)
[2021-12-31] MEDS: *HR* Enoxaparin 40 MG/0.4 ML SYRINGE SQ SCH (08:33)
[2021-12-31] MEDS: Cefepime HCl 2,000 MG in 0.9 % Sodium Chloride 10 ML IVP SCH ×2 (15:28→23:27)
[2021-12-31 16:42] LABS: Adenovirus Not Detected (Not Detect); Bordetella Pertussis Not Detected (Not Detect); Chlamydophila pneumoniae Not Detected (Not Detect); Coronavirus 229E Not Detected (Not Detect); Coronavirus HKU1 Not Detected (Not Detect); Coronavirus NL63 Not Detected (Not Detect); Coronavirus OC43 Not Detected (Not Detect); Human Metapneumovirus Not Detected (Not Detect); Human Rhinovirus/Enterovirus Not Detected (Not Detect); Influenza A Subtype 2009 H1 Not Detected (Not Detect); Influenza B Not Detected (Not Detect); Mycoplasma pneumoniae Not Detected (Not Detect); Parainfluenza Virus 1 Not Detected (Not Detect); Parainfluenza Virus 2 Not Detected (Not Detect); Parainfluenza Virus 3 Not Detected (Not Detect); Parainfluenza Virus 4 Not Detected (Not Detect); Respiratory Syncytial Virus Not Detected (Not Detect); SARS-CoV-2 Not Detected (Not Detect)
[2021-12-31] MEDS ORDERED: Isovue-370 500 ML BOTTLE IVP ONE (16:42)
[2021-12-31] MEDS: Ketorolac 30 MG/ML VIAL IVP PRN (23:25)
[2022-01-01 06:51] VITALS: BP 94/57; PULSE 79; TEMP 97.8; O2SAT 98
[2022-01-01] MEDS: *HR* Enoxaparin 40 MG/0.4 ML SYRINGE SQ SCH (08:16)
[2022-01-01] MEDS: Cefepime HCl 2,000 MG in 0.9 % Sodium Chloride 10 ML IVP SCH (08:16)
[2022-01-01] MEDS: Ketorolac 30 MG/ML VIAL IVP PRN (08:32)
[2022-01-01 09:52] LABS: Basophils % 0.8 %; Eosinophils # 0.2 K/mcL (0.0-0.6); Hematocrit 27.7 % (35.3-44.9); Hemoglobin 8.9 g/dL (11.5-15.4); Immature Granulocytes % 2.7 % (0-4); Lymphocytes # 1.3 K/mcL (0.6-4.6); Lymphocytes % 35.2 %; Mean Corpuscular HGB Conc 32.1 g/dL (31.6-35.5); Mean Corpuscular Hemoglobin 28.3 pg (28.0-33.3); Mean Corpuscular Volume 88.2 fL (83.0-100.0); Mean Platelet Volume 10.4 fL (9.4-12.4); Monocytes # 0.3 K/mcL (0.0-1.3); Monocytes % 8.5 %; Nucleated Red Blood Cells 0.8 /100 WBC (0); Platelet Count 184 K/mcL (140-400); Red Blood Count 3.14 M/mcL (3.82-4.97); Red Cell Distribution Width 18.1 % (11.5-14.5); Segmented Neutrophils % 48.8 %
[2022-01-01 09:53] LABS: Neutrophils # 1.9 K/mcL (1.6-8.9); White Blood Count 3.8 K/mcL (4.3-11.1)
[2022-01-01] MEDS ORDERED: Gadolinium Contrast Agent (WT Based) IV PRN (10:02)
[2022-01-01] MEDS ORDERED: Lidocaine Viscous Oral Soln 15 ML SOLUTION MM PRN (10:48)
[2022-01-01] MEDS ORDERED: 0.9 % Sodium Chloride 500 ML IVC ONE (10:48)
[2022-01-06 16:44] LABS: Hepatitis B Core IgM Nonreactive (Nonreactive)
== END 2022-01-01 11:37 | disposition left against medical advice (07) | DRG 720 ==
LOC: 3ANU → SUATTDRO 21:15
PROVIDERS: ADMIT Hospitalist; ATTEND Internal Medicine